=== PATIENT | male | born 1970 | race Caucasian/White ===

== ENCOUNTER 2018-04-26 09:19 | Day surgery (SDC) | payer MEDICAID, SELFPAY ==
[2018-04-26] VITALS (7 sets, daily range): BP systolic 94–161; BP diastolic 49–91; PULSE 59–77; RESP 11–18; TEMP 36.4–36.6; O2SAT 95–98
--- NOTE | 2018-04-26 10:29 | W.PM.HP.N ---
Date of service: 04/26/18 Time of Service: 10:29 Assessment and Plan (1) Hydrocele in adult: Current visit: Yes Status: Chronic For hydrocelectomy History of Present Illness Chief Complaint: Left hydrocele Narrative: This is a 47-year-old gentleman who was previously seen with bilateral hydroceles. He underwent right hydrocelectomy. He had a postoperative seroma and fistula. He required revision surgery. He is ultimately healed from his right side. His left side is symptomatic for him. He comes in now for left hydrocelectomy He has no overlying redness. He is concerned about discoloration of his median raphae. Review of Systems Review of Systems No fevers or chills. Sweats related to anxiety No vision change or dysphasia No diabetes or thyroid No shortness of breath, cough or hemoptysis No chest pain or palpitations No nausea, vomiting, hepatitis, ulcers, jaundice, diarrhea or constipation No seizures, strokes or peripheral neuropathy No bleeding disorders or anemia No gout PFSH Medical History Hydrocele in adult (Chronic) Hypertension (Chronic) Anxiety (Chronic) Social History Smoking/Tobacco Use Status: Current every day Meds Home Medications Medication Instructions Recorded Confirmed Type chlorthalidone 25 mg PO DAILY tab-cap 04/03/17 04/26/18 History clonidine HCl 0.1 mg PO DAILY tab-cap 04/03/17 04/26/18 History pantoprazole [Protonix] 20 mg PO HS tab-cap 04/03/17 04/26/18 History ibuprofen 600 mg PO BID 02/22/18 04/26/18 History Allergies Allergy/AdvReac Type Severity Reaction Status Date / Time meloxicam [From Mobic] Allergy Severe Itching Unverified 04/26/18 09:26 bupropion [From Wellbutrin] AdvReac Mild Other (See Unverified 04/26/18 09:26 Comment) lisinopril AdvReac Mild cough Unverified 04/26/18 09:26 Exam Narrative Exam Narrative: He appears quite nervous. He does not appear septic or toxic. His neck is supple with no mass His lungs are clear Cardiac exam shows a regular rate and rhythm His abdomen is soft with no mass The right hemiscrotum has a healed surgical scar. The left hemiscrotum is slightly enlarged with no fluctuance or erythema. The median raphae is intact and is slightly discolored. He is awake, alert and oriented Results Last Vital Signs Temp 36.6 C 04/26/18 09:28 Pulse 77 04/26/18 09:28 Resp 16 04/26/18 09:28 BP 161/91 H 04/26/18 09:28 Pulse Ox 98 04/26/18 09:28
[2018-04-26] MEDS: Lactated Ringers 1,000 ML 80 ML IV (10:42)
[2018-04-26] MEDS: Bupivacaine 0.25% Pres-Free 30 ML VIAL (11:20)
--- NOTE | 2018-04-26 11:29 | PDOC.DSDIS_ITS ---
Discharge Plan Disposition Patient Disposition: HOME Condition: Stable Discharge Details Attending Provider: Sudheer Perkins Primary Care Provider: Mary Bazzi Home Meds and New Rx's Prescriptions: No Action sulfamethoxazole-trimethoprim [Bactrim DS] 800-160 mg tablet 1 tab PO DAILY Qty: 7 RF: 0 clonidine HCl 0.1 MG tablet 0.1 mg PO DAILY RF: 0 chlorthalidone 25 MG tablet 25 mg PO DAILY RF: 0 pantoprazole [Protonix] 20 MG tablet,delayed release (DR/EC) 20 mg PO HS RF: 0 ibuprofen 600 mg Tablet 600 mg PO BID RF: 0 Discharge Instructions Additional Instructions: OK to shower and remove fluff dressings tomorrow F/U with me 2 to 3 weeks Do not discharge until I hand pt his pain script script for antibiotic printed and signed Stand Alone Forms: DSU Post op Instructions, Gregorio'romina Vasectomy Post-op Activity:: no lifting over 10 pounds until F/U visit Shower/Bathe:: 24 hours Diet:: As Tolerated Discharge Orders Discharge Orders: Discharge Order (Routine); Ordered 04/26/18 Ordered By: Sudheer Perkins Discharge Data Discharge Comment: I had intended to send pt home with script for Oxycodone for postoperative pain. I had called his pharmacy ([facility] in [place]) and found out that pt was already on Suboxone (prescribed by Luke Kaminski, JANINA). I explained that I would not be able to prescribe the Oxycodone given his Suboxone use. I called his provider who agreed to adjust his dose of Suboxone for postoeperative pain control. Mr Olea was not pleased with this arrangement, but for pt safety, we did not send him home with a narcotic prescription). DS: Diagnosis Discharge Diagnosis (1) Hydrocele in adult: Status: Chronic
[2018-04-26] MEDS: oxyCODONE 5 MG TAB 10 MG PO (12:37)
[2018-04-26] MEDS: Midazolam 2 MG/2 ML VIAL IVP (12:43)
[2018-04-26] MEDS: ALPRAZolam 0.5 MG TAB 2 MG PO (12:55)
--- NOTE | 2018-04-26 15:48 | ROE_ITS ---
DATE OF PROCEDURE: April 26, 2018 PREOPERATIVE DIAGNOSIS: Left hydrocele. POSTOPERATIVE DIAGNOSIS: Same. PROCEDURE: Left hydrocelectomy. SURGEON: Sudheer Perkins M.D. ANESTHESIA: General. COMPLICATIONS: None. ESTIMATED BLOOD LOSS: Minimal. HISTORY: This is a 47-year-old gentleman who has had a right hydrocele in the past. He had undergon e right hydrocelectomy. He now has a symptomatic left hydrocele and he requests surgical repair. OPERATIVE REPORT: The patient was brought to the Operating Room on 04/26/18. After successful induct ion of general anesthesia he was placed in the supine position. His low abdomen and genitalia were p repped and draped. A left transscrotal incision was made along the rugae on the left side. The dartos muscle was divide d and we came down onto the tunica vaginalis. We delivered the testis through the incision and dissected the tunica away from its fibrous tissues. The tunica was then opened and a small amount of fluid was drained. The testis itself appeared norm al. A cord block was performed using 0.25% Marcaine without epinephrine. The tunica was everted behind t he testis and reapproximated at the edges using simple interrupted #3-0 Chromic sutures. The testis was delivered back within the left hemiscrotum. The dartos muscle was reapproximated with simple interrupted #3-0 Chromic. The skin was closed with simple interrupted #4-0 Vicryl sutures. The patient tolerated the procedure well. There were no complications. Dermabond was applied to the wound, followed by fluff dressings and a scrotal support.
== END 2018-04-26 13:22 | disposition home or self-care (01) ==
PROVIDERS: PCP Nurse Practitioner Family; Visit Provider Urology
PROC: (CPT 55040; principal; 2018-04-26 10:45)
DX: N43.2 Other hydrocele (principal)
CPT/HCPCS: 55040; NC; J0690; J1100; J1885; J2250; J2405; J3010

== ENCOUNTER 2018-04-29 22:06 | Emergency (ER) | payer OTHER, SELFPAY ==
[2018-04-29 23:12] VITALS: BP 150/85; PULSE 66; RESP 16; TEMP 37.2; O2SAT 99
--- NOTE | 2018-04-29 23:27 | ED.GENADUL_ITS ---
Discharge Plan Disposition Patient Disposition: HOME Condition: Stable Discharge Details Chief Complaint: Urinary Clinical Impression: Scrotal hematoma, History of hydrocelectomy Primary Care Provider: Mary Bazzi ED Provider: Bambi Pendleton Home Meds and New Rx's Prescriptions: No Action sulfamethoxazole-trimethoprim [Bactrim DS] 800-160 mg tablet 1 tab PO DAILY Qty: 7 RF: 0 clonidine HCl 0.1 MG tablet 0.1 mg PO DAILY RF: 0 chlorthalidone 25 MG tablet 25 mg PO DAILY RF: 0 pantoprazole [Protonix] 20 MG tablet,delayed release (DR/EC) 20 mg PO HS RF: 0 ibuprofen 600 mg Tablet 600 mg PO BID RF: 0 acetaminophen 325 mg Tablet 650 mg PO Q6H PRNRF: 0 Suboxone 2-0.5 mg Film 7 film BUCCAL DAILY RF: 0 Discharge Instructions Instructions: Hydrocele (ED), Hematoma (ED) Additional Instructions: Keep holding pressure to the left scrotum to help with re-absorption of blood which will hopefully decrease her swelling. If possible, it would be best return to an emergency department that has urology available if you have any worsening or new concerning symptoms so that you can be evaluated by urology. Discharge Data Discharge Date/Time-TO BE ENTERED AT DEPARTURE: 04/30/18 17:50 Discharge Physician: Bambi Pendleton Medical Decision Making <Chung Sebastian MD - Last Filed: 04/30/18 07:37> I actually saw this patient last spring when he had postop hematoma related to excision of the right hydrocele. Appears to have recurrent hematoma after excision of a left hydrocele. He is in a fair amount of discomfort. He is not able to have narcotics because he is on Suboxone. He reports having a dissolv able tablet under his tongue with ketamine in it postop surgery which he states worked very well. The area looks ecchymotic and there is probably a large hematoma. There is no drainage. There is no warmth or erythema and I do not think there is evidence of infection. Attempted to reach Dr. Perkins but he did not answer his phone. He does appear to be scheduled for patient's tomorrow here in the hospital. I did speak to anesthesia, RAFAEL An, and confirmed that medication patient is talking about is MKO melts. Patient will be given 1 of these to help with his pain. We will place an IV and make n.p.o. We will check a CBC. We will hold here in the ED until I can speak to Dr. Perkins. Quite possible that patient will need to go for drainage of hematoma. 7:30 - Patient asking for his Suboxone. However, the nurse at [facility] told me the patient is on dry cell. He is only scheduled for Motrin and Tylenol if he was at the skilled nursing. Since he is in DOC custody I will abide by their medical orders. I have made patient aware of this. He is given Toradol this morning. His CBC last evening was fine. He has no elevated white count. He has had no fever here. Messages have been left for Dr. Perkins this morning. Specialty clinics open at 8, hopefully he will call back to us prior to that. Patient will be signed over to oncoming physician Dr. Pendleton. Medical Records Medical records reviewed: Yes I reviewed the patient's medical records. Lab Data Lab results reviewed: Yes I reviewed the patient's lab results. <Bambi Pendleton, DO - Last Filed: 05/01/18 08:18> Please see Dr. Sebastian's note for initial presentation, exam and plan. 47yo M who is 4 days s/p L hydrocelectomy who presents with left scrotal hematoma x 3 days. Attempts to reach Dr. Perkins unsuccessful overnight. Determined this morning that Dr. Perkins and Mya Martinez are away today and not available. Plan per Dr. Sebastian was to discuss with [facility] versus [facility] urology for recommendations, may need urgent hematoma drainage. Patient was apparently comfortable overnight. He had been given Toradol, and MKO and slept all night. This morning patient complaining of some pain and given another MKO by Dr. Sebastian prior to my endorsement. Upon my evaluation, patient states his pain is returning. Patient has had no fever, normal white blood cell count and no evidence of infection on exam. Patient is questioning why he has not received any pain medications. Patient states he has been on Suboxone for the past 4-5 months for previous opioid addiction. His last dose of Suboxone was 3 days ago. Patient is currently in police custody for the past 3 days so has not received his Suboxone for 3 days. chief talent officer states that patient had been on dry cell precautions due to concern for holding tobacco or narcotics on his person/or in rectum but correctional therapy teacher states this has been lifted and pt can receive any narcotics if needed. Patient states he had been receiving 4 mg of Dilaudid, and 10 mg of OxyContin for his pain in the past. Will give a dose of 4 mg morphine IV. 0915 -- d/w [facility] - they will page urology who are in surgery. 1230 -- no word yet from [facility]. Discussed with [facility] urology - recommends observation for 24 hours to determine if expanding hematoma. If remains stable, recommends compression with gauze, jockstrap recommendations for urgent evacuation include an expanding hematoma or signs of infection. Otherwise recommends symptomatic control. 1530 -- d/w [facility] urology - agrees with plan for supportive care - if not expanding, okay to discharge home with follow-up next week. Patient complained to nurse that he had some yellow red discharge when urinating. Will obtain a UA. 1600 -- Evaluated patient in room again and he feels like the hematoma is expanding. Upon my evaluation, there appears to be a small area approximately 2 x 2 cm which appears to be a localized area of swelling and does not appear consistent with an expanding hematoma. His scrotum does not appear indurated. 1615 --discussed with [facility] urology - they were notified of the small area of increased swelling. She states it would be unlikely that patient have a hematoma 4 days post surgery. Recommend supportive care with pressure dressing. Recommend patient return to an ER with urology if needed. Patient is requesting his dose of Suboxone. We will give his dose here and discharge back to correctional facility. His urinalysis is negative for infection or blood. Patient was instructed to keep holding pressure to the area and that if he has any acute signs of worsening to return to facility with urology if possible, otherwise he can return here. Medical Records Medical records reviewed: Yes I reviewed the patient's medical records. Lab Data Lab results reviewed: Yes I reviewed the patient's lab results. Laboratory Tests Range/Units 04/30/18 04/30/18 00:10 16:03 WBC (4.4-10.8) k/cumm 5.56 RBC (4.50-6.00) m/cumm 3.99 L Hgb (13.5-17.5) g/dL 13.8 Hct (40.0-50.0) % 39.4 L MCV (80-95) fL 98.7 H MCH (27.0-33.0) pg 34.6 H MCHC (32.0-36.0) g/dL 35.0 RDW (11.8-14.1) % 12.0 Plt Count (130-400) x1000/uL 135 MPV (8.0-11.0) fL 10.1 Immature Gran % 0.5 Neutrophils % 62.3 Lymphocytes % 27.7 Monocytes % 7.6 Eosinophils % 1.4 Basophils % 0.5 Absolute Neutrophils (1.2-6.7) k/cumm 3.46 Absolute Lymphocytes (1.2-3.4) k/cumm 1.54 Absolute Monocytes (0.11-0.7) k/cumm 0.42 Absolute Eosinophils (0.0-0.7) k/cumm 0.08 Absolute Basophils (0.0-0.2) k/cumm 0.03 Urine Color (Yellow) Yellow Urine Clarity Clear Urine pH (5-8) 8.0 Ur Specific [place] (1.005-1.025) 1.020 Urine Protein (Negative) mg/dL Negative Urine Ketones (Negative) mg/dL Negative Urine Blood (Negative) Negative Urine Nitrite (Negative) Negative Urine Bilirubin (Negative) Negative Urine Urobilinogen (Up TO 0.2) EU/dL 1.0 H Ur Leukocyte Esterase (Negative) Negative Urine Glucose (Negative) mg/dL Negative HPI <Chung Sebastian MD - Last Filed: 04/30/18 07:37> General Mode of arrival: ambulatory . Date/Time Provider Initiated Documentation: 04/29/18 23:23 . Limitations to Documentation: no limitations . Information obtained by: patient and old records reviewed . HPI Narrative: Patient is brought in by DOC for evaluation of left scrotal ecchymosis and swelling. On the patient underwent excision of a left hydrocele. He was discharged and supposed to be taking Bactrim and an increased dose of his Suboxone for pain control. He ended up going back to skilled nursing where he has not been getting any medications other than Motrin and Tylenol. In the last 24 hours his scrotum has become ecchymotic, swollen and painful. He has had no fever. He is able to urinate. He had a right hydrocele excision this spring and had a similar event. Ultimately underwent hematoma drainage. He is sent in by the nurse from skilled nursing because of increasing pain and swelling. Related Data Home Medications Medication Instructions Recorded Confirmed chlorthalidone 25 mg PO DAILY tab-cap 04/03/17 04/29/18 clonidine HCl 0.1 mg PO DAILY tab-cap 04/03/17 04/29/18 pantoprazole [Protonix] 20 mg PO HS tab-cap 04/03/17 04/29/18 ibuprofen 600 mg PO BID 02/22/18 04/29/18 sulfamethoxazole 800 1 tab PO DAILY #7 tab 04/26/18 04/29/18 mg-trimethoprim 160 mg tablet acetaminophen 650 mg PO Q6H PRN 04/29/18 04/29/18 buprenorphine-naloxone [Suboxone] 7 film BUCCAL DAILY 04/29/18 04/29/18 Previous Rx's Medication Instructions Recorded sulfamethoxazole 800 1 tab PO DAILY #7 tab 04/26/18 mg-trimethoprim 160 mg tablet Allergies Allergy/AdvReac Type Severity Reaction Status Date / Time meloxicam [From Mobic] Allergy Severe Itching Unverified 04/29/18 23:16 bupropion [From Wellbutrin] AdvReac Mild Other (See Unverified 04/29/18 23:16 Comment) lisinopril AdvReac Mild cough Unverified 04/29/18 23:16 General Stated Complaint: Urinary AMBER: 3 Review of Systems <Chung Sebastian MD - Last Filed: 04/30/18 07:37> Constitutional Denies fever(s) and Denies weakness Cardiovascular Denies chest pain, Denies syncope, Denies palpitations and Denies dyspnea Respiratory Denies chest congestion, Denies cough and Denies dyspnea Gastrointestinal Denies abdominal pain, Denies diarrhea, Denies nausea and Denies vomiting Genitourinary Denies hematuria, Denies dysuria, Denies flank pain and Reports scrotal swelling Musculoskeletal Denies numbness Integumentary/Breasts Denies erythema Neurologic Denies abnormal speech, Denies confusion, Denies syncope, Denies numbness and Denies weakness Psychiatric Denies confusion Endocrine Denies palpitations PFS <Chung Sebastian MD - Last Filed: 04/30/18 07:37> Medical History Hydrocele in adult (Chronic) Hypertension (Chronic) Anxiety (Chronic) Narcotic addiction (Chronic) Surgical History History of genitourinary surgery (Acute) Social History Smoking/Tobacco Use Status: Current every day Exam <Chung Sebastian MD - Last Filed: 04/30/18 07:37> Const General: cooperative, comfortable and no acute distress Orientation: alert and oriented x3 HENMT Head: normocephalic and atraumatic Neck Neck: trachea midline and supple GI Inspection: normal to inspection Palpation: soft, not firm, no guarding and nontender Penis: normal penis, no ecchymosis and no swelling Scrotum: ecchymosis, scrotal swelling and other (Left scrotal fullness, tenderness. Incision intact. No drainage.) Skin General skin exam: ecchymosis and no erythema Neuro General: alert, oriented x3, no focal motor deficits and CN's II-XI intact bilaterally Extrem General: no clubbing, cyanosis or edema Course <Chung Sebastian MD - Last Filed: 04/30/18 07:37> Vital Signs Temperature 99.0 F 04/29/18 23:12 Pulse 66 04/29/18 23:12 Respiratory Rate 16 04/29/18 23:12 Blood Pressure 150/85 H 04/29/18 23:12 Pulse Oximetry 99 04/29/18 23:12 Temperature 99.0 F 04/29/18 23:12 Temperature Source Skin 04/29/18 23:12 Pulse 66 04/29/18 23:12 Respiratory Rate 16 04/29/18 23:12 Respiratory Effort Non-Labored 04/29/18 23:14 Blood Pressure 150/85 H 04/29/18 23:12 Blood Pressure Position Sitting 04/29/18 23:12 Pulse Oximetry 99 04/29/18 23:12 Oxygen Delivery Method Room Air 04/29/18 23:12 Oxygen Flow Rate 0 04/29/18 23:12 Pain Level 9 04/29/18 23:12 Sign Out <Chung Sebastian MD - Last Filed: 04/30/18 07:37> Sign Out Data: Sign Out Comment: Signed out to Dr. Pendleton, attempting to find urologist for referral/consult Last updated by Chung Sebastian MD at 04/30/18 08:14
[2018-04-30] VITALS (63 sets, daily range): BP systolic 132–140; BP diastolic 67–68; PULSE 52–78; RESP 9–23; TEMP 37–37.1; O2SAT 89–98
[2018-04-30] MEDS: Lactated Ringers 1,000 ML 150 ML IV ×2 (00:10→06:00)
[2018-04-30] MEDS: Midazolam/Ketamine/Ondansetron (3/25/2MG) 1 TAB 1 EACH SL ×2 (00:24→08:16)
[2018-04-30] MEDS: Normal Saline Flush 10 ML SYR IVP (00:25)
[2018-04-30 00:40] LABS: Abs Immature Grans 0.03 k/cumm (0.0-0.09); Absolute Basophil Count 0.03 k/cumm (0.0-0.2); Absolute Eosinophil Count 0.08 k/cumm (0.0-0.7); Absolute Lymphocyte Count 1.54 k/cumm (1.2-3.4); Absolute Monocyte Count 0.42 k/cumm (0.11-0.7); Absolute Neutrophil Count 3.46 k/cumm (1.2-6.7); Basophils % 0.5; Eosinophils % 1.4; HCT 39.4 % (40.0-50.0); HGB 13.8 g/dL (13.5-17.5); Immature Grans % 0.5; Lymphocytes % 27.7; Mean Corpuscular Hemoglobin 34.6 pg (27.0-33.0); Mean Corpuscular Volume 98.7 fL (80-95); Mean Platelet Volume 10.1 fL (8.0-11.0); Monocytes % 7.6; Neutrophils % 62.3; Platelet Count 135 x1000/uL (130-400); RBC 3.99 m/cumm (4.50-6.00); White Blood Cell Count 5.56 k/cumm (4.4-10.8)
--- NOTE | 2018-04-30 07:07 | NUR.NOTE ---
Nursing Note: Assumed care of patient, VSS on the monitor. Has officer at the bedside. Will monitor.
--- NOTE | 2018-04-30 07:28 | NUR.NOTE ---
Nursing Note: MD Sebastian at the bedside, is clear to patient again that he will not receive suboxone while he is here in the ED. confirmed again with facility that pt. has only been receiving tylenol and ibuprofen.
[2018-04-30] MEDS: Ketorolac 15 MG/ML VIAL IVP (07:34)
--- NOTE | 2018-04-30 08:41 | NUR.NOTE ---
Nursing Note: MD Pendleton at the bedside.
[2018-04-30] MEDS: MORPHine 10 MG/ML VIAL 4 MG IVP ×2 (08:51→13:17)
--- NOTE | 2018-04-30 09:06 | NUR.NOTE ---
Nursing Note: Pt. sleeping, RR WNL.
--- NOTE | 2018-04-30 10:50 | NUR.NOTE ---
Nursing Note: Pt. sleeping, RR WNL.
--- NOTE | 2018-04-30 10:51 | NUR.NOTE ---
Nursing Note: Pt. was placed on 2L NC for 02 sat dropping briefly into high 80s while sleeping.
--- NOTE | 2018-04-30 11:29 | NUR.NOTE ---
Nursing Note:still sleeping, RR WNL.
--- NOTE | 2018-04-30 12:41 | NUR.NOTE ---
assumed care of patient, patient requesting pain medication Nursing Note:
--- NOTE | 2018-04-30 13:13 | NUR.NOTE ---
aware of patient requesting pain medication 1300. Nursing Note:
--- NOTE | 2018-04-30 13:25 | NUR.NOTE ---
patient medicated per MD order Nursing Note:
--- NOTE | 2018-04-30 14:33 | NUR.NOTE ---
mORPHINE DID NOT HELP PAIN PER PATIENT, md AWARE, CONTINUES TO AWAIT UROILOGY CONSULT Nursing Note:
[2018-04-30] MEDS: HYDROmorphone 2 MG/ML VIAL 0.5 MG IV (14:46)
--- NOTE | 2018-04-30 14:48 | NUR.NOTE ---
patient medicated per MD order with 0.5 mg dilaudid IV, consult continues to pend Nursing Note:
--- NOTE | 2018-04-30 15:36 | NUR.NOTE ---
patient reported yellow/red discharge during void, MD aware Nursing Note:
--- NOTE | 2018-04-30 16:07 | NUR.NOTE ---
into speak with patient, patient reports groin swelling and reports pain is not under control Nursing Note:
--- NOTE | 2018-04-30 16:09 | NUR.NOTE ---
jared during [id number] patient has voided 800mL Nursing Note:
[2018-04-30 16:11] LABS: Bilirubin Negative (Negative); Blood Negative (Negative); Clarity Clear; Glucose Negative (Negative); Ketones Negative (Negative); Leukocyte Esterase Negative (Negative); Nitrite Negative (Negative)
[2018-04-30] MEDS: Buprenorphine/Naloxone 12 mg/3 mg FILM 1 EACH SL (16:48)
--- NOTE | 2018-04-30 16:59 | NUR.NOTE ---
PATIENT MEDICATED PER MD ORDER, FOOD TRAY ORDERED Nursing Note:
--- NOTE | 2018-04-30 17:49 | NUR.NOTE ---
patient received jock strap and kerlex per MD order, report given to Holli escamilla,, patient discharged in care of guard. Nursing Note:
== END 2018-04-30 17:50 | disposition home or self-care (01) ==
PROVIDERS: Emergency Medicine; Emergency Provider Physician Assistant; PCP Nurse Practitioner Family
DX: L76.32 Postprocedural hematoma of skin and subcutaneous tissue following other procedure (principal); Z79.891 Long term (current) use of opiate analgesic; I10 Essential (primary) hypertension
CPT/HCPCS: 96361; 96374; 96375; 96376; 99284; 81003; 85025; J1885; J2270

== ENCOUNTER 2018-05-13 11:14 | Observation (INO) | payer OTHER, MEDICAID, SELFPAY ==
[2018-05-13] VITALS (11 sets, daily range): BP systolic 130–183; BP diastolic 66–102; PULSE 55–75; RESP 9–17; TEMP 36.4–36.7; O2SAT 93–98
--- NOTE | 2018-05-13 11:18 | HPE_ITS ---
Assessment and Plan (1) scrotal fistula: Current visit: No Status: Acute We will revise his scrotal incision and treat him with IV antibiotics for 24-48 hours while tissue cultures are obtained. History of Present Illness Chief Complaint: Scrotal Fistula Narrative: This is a 47-year-old gentleman who previously was seen with a right hydrocele. He underwent hydrocelectomy and ultimately developed increased drainage and a fistula. He required a revision of his scrotal wound. He recently had a left-sided hydrocele addressed the procedure was done between 2 and 3 weeks ago. He has had persistent drainage from the center of his wound consistent with a postop fistula. He will undergo revision of that portion of the wound and stay in the hospital for IV antibiotics while the wound culture is obtained. He is not having any fever or chills. He does have pain and swelling. Review of Systems Review of Systems He has no fever or chills He has no vision change. He tells me that oral Keflex had caused some scalp itching. He has no cough or sputum production He has no chest pain He has no nausea or vomiting He has anxiety He has no history of gout. He does have arthralgia [facility] Social History Smoking/Tobacco Use Status: Current every day Meds Home Medications Medication Instructions Recorded Confirmed Type chlorthalidone 25 mg PO DAILY tab-cap 04/03/17 04/29/18 History clonidine HCl 0.1 mg PO DAILY tab-cap 04/03/17 04/29/18 History pantoprazole [Protonix] 20 mg PO HS tab-cap 04/03/17 04/29/18 History ibuprofen 600 mg PO BID 02/22/18 04/29/18 History sulfamethoxazole 800 1 tab PO DAILY #7 tab 04/26/18 04/29/18 Rx mg-trimethoprim 160 mg tablet acetaminophen 650 mg PO Q6H PRN 04/29/18 04/29/18 History buprenorphine-naloxone [Suboxone] 7 film BUCCAL DAILY 04/29/18 04/29/18 History Allergies Allergy/AdvReac Type Severity Reaction Status Date / Time meloxicam [From Mobic] Allergy Severe Itching Unverified 04/29/18 23:16 bupropion [From Wellbutrin] AdvReac Mild Other (See Unverified 04/29/18 23:16 Comment) lisinopril AdvReac Mild cough Unverified 04/29/18 23:16 Exam Narrative Exam Narrative: He is in no acute distress. He does not appear septic or toxic. His chest wall motion is normal. His lungs are clear. Cardiac exam shows a regular rate and rhythm. His abdomen is obese but soft with no masses. The left hemiscrotum is enlarged and firm but not fluctuant. There is serous drainage from the center aspect of his incision. He is awake, alert and oriented
--- NOTE | 2018-05-13 11:43 | HPE_ITS ---
Date of service: 05/13/18 Time of Service: 11:36 Assessment and Plan (1) scrotal fistula: Current visit: No Status: Acute We will revise the affected portion of his wound and send that to you for culture and sensitivity. We will keep him on broad-spectrum antibiotics until the culture is available I would expect a similar outcome from his last procedure when his culture grew E. coli History of Present Illness Chief Complaint: Scrotal fistula Narrative: This is a 47-year-old gentleman who previously had a right hydrocelectomy. Postoperatively, he developed persistent drainage due to a fistula. He underwent a revision of this area. The culture grew E. coli. He improved with the revision and the broad-spectrum antibiotics. He subsequently had a left-sided hydrocelectomy. The procedure was done 2-3 weeks ago. He has had persistent serous drainage for the past week or so. He is not having any fevers or chills. He is admitted for revision of his wound and antibiotic therapy until his cultures are available Review of Systems Review of Systems He has no fever chills He has no vision change. He tells me that his oral Keflex caused some scalp itching He has no cough or sputum production He has no chest pain He has no nausea or vomiting He has no gout, but he does have arthralgia He has no history of seizures or stroke [facility] Medical History Hydrocele in adult (Chronic) Hypertension (Chronic) Anxiety (Chronic) Narcotic addiction (Chronic) Surgical History History of genitourinary surgery (Acute) Social History Smoking/Tobacco Use Status: Current every day Meds Home Medications Medication Instructions Recorded Confirmed Type chlorthalidone 25 mg PO DAILY tab-cap 04/03/17 04/29/18 History clonidine HCl 0.1 mg PO DAILY tab-cap 04/03/17 04/29/18 History pantoprazole [Protonix] 20 mg PO HS tab-cap 04/03/17 04/29/18 History ibuprofen 600 mg PO BID 02/22/18 04/29/18 History acetaminophen 650 mg PO Q6H PRN 04/29/18 04/29/18 History buprenorphine-naloxone [Suboxone] 7 film BUCCAL DAILY 04/29/18 04/29/18 History Allergies Allergy/AdvReac Type Severity Reaction Status Date / Time meloxicam [From Mobic] Allergy Severe Itching Unverified 05/13/18 11:38 bupropion [From Wellbutrin] AdvReac Mild Other (See Unverified 05/13/18 11:38 Comment) lisinopril AdvReac Mild cough Unverified 05/13/18 11:38 Exam Narrative Exam Narrative: He is in no current distress. He does not appear septic or toxic. His vital signs are documented elsewhere His chest wall motion is normal. He is not short of breath at rest. His lungs are clear Cardiac exam regular rate and rhythm His abdomen is obese but soft with no masses His scrotum is diffusely enlarged and firm but there is no fluctuance or evidence of abscess. The center portion of his scrotal wound is draining serous fluid. The more lateral aspect of his incision is healing well. He is awake, alert and oriented
[2018-05-13] MEDS: Midazolam/Ketamine/Ondansetron (3/25/2MG) 1 TAB 1 EACH SL (12:00)
[2018-05-13] MEDS: Lactated Ringers 1,000 ML 80 ML IV (12:16)
[2018-05-13] MEDS: GENTAMICIN 160 MG in Normal Saline 100 ML 208 MG IVPB (12:27)
[2018-05-13] MEDS: Bupivacaine 0.5% Pres-Free 30 ML VIAL (12:46)
[2018-05-13] MEDS: Hydrogen Peroxide 3% 480 ML BTL (12:46)
[2018-05-13] MEDS: HYDROmorphone 2 MG/ML VIAL IVP ×9 (13:56→23:36)
[2018-05-13] MEDS: Normal Saline Flush 10 ML SYR IV ×2 (13:56→16:55)
[2018-05-13] MEDS: oxyCODONE 5 MG TAB 10 MG PO ×3 (14:21→22:04)
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
[2018-05-13] MEDS: ALPRAZolam 0.5 MG TAB PO ×2 (16:57→22:04)
[2018-05-13] MEDS: Ketorolac 15 MG/ML VIAL IVP ×2 (18:07→23:36)
--- NOTE | 2018-05-13 18:50 | NUR.NOTE ---
Nursing Note: Report received from TRICIA Godinez. Patient is in stable condition, currently resting in bed with no complaints. The bed is in the low and locked position, side rails up x2, call light within reach.
[2018-05-13] MEDS: Normal Saline Flush 10 ML SYR ×2 (19:48→22:50)
--- NOTE | 2018-05-13 21:50 | NUR.NOTE ---
Nursing Note: Dressing to scrotum changed due to saturation. Patient tolerated well.
[2018-05-13] MEDS: Pantoprazole 20 MG TABCR PO (22:04)
[2018-05-14] MEDS: HYDROmorphone 2 MG/ML VIAL IVP ×15 (00:35→21:59)
[2018-05-14] MEDS: Normal Saline Flush 10 ML SYR (00:35)
[2018-05-14] MEDS: oxyCODONE 5 MG TAB 10 MG PO ×5 (02:53→19:53)
[2018-05-14] MEDS: Lactated Ringers 1,000 ML 100 ML IV ×2 (02:56→13:07)
[2018-05-14] MEDS: ALPRAZolam 0.5 MG TAB PO ×3 (03:59→17:22)
[2018-05-14] MEDS: Ketorolac 15 MG/ML VIAL IVP ×2 (05:31→12:03)
[2018-05-14] MEDS: Normal Saline Flush 10 ML SYR IVP ×5 (06:55→21:59)
[2018-05-14 07:25] VITALS: BP 145/75; PULSE 77; RESP 18; TEMP 37.1; O2SAT 94
[2018-05-14] MEDS: Docusate Sodium 100 MG CAP PO ×2 (11:04→19:53)
[2018-05-14] MEDS: Bisacodyl 10 MG SUPP PR (11:04)
--- NOTE | 2018-05-14 11:50 | NUR.NOTE ---
Nursing Note: 1145: update on pt's condition given to CANDACE Toledo at [facility] all questions answered.
--- NOTE | 2018-05-14 12:36 | W.PM.PROGNOT ---
Date of Service Date of service: 05/14/18 Time of Service: 12:36 Assessment and Plan (1) scrotal fistula: Current visit: No Status: Acute His wound looks as I would expect at this point in time. We will keep him on broad-spectrum antibiotics until his culture is available. At that time, we should be able to discharge him on oral antibiotics. As expected, on patients on chronic Subutex, he is requiring much higher than expected short-term narcotics. We will switch to a larger dose of the lot of with a bigger duration between doses. We have asked the pharmacy for other ideas regarding pain control. Gabapentin was suggested but the patient claims that he is allergic to it. The patient is asking for higher doses of benzodiazepines, but we will not be giving a higher dose due to potential respiratory depression from combinations of his medications. Subjective Interval history since last seen: The patient has complained of postop pain which has been difficult to control (as expected). He has been on his chronic Subutex along with IV Toradol, as needed Dilaudid which she has been requesting every hour. He has not had any fevers or chills. He has had some bleeding from his incision especially with activity. Exam Narrative Exam Narrative: He does not seem to be in extreme pain. His vital signs are documented elsewhere. His incision site is clean. The left hemiscrotum is enlarged but there is no fluctuance or obvious fluid collections. His culture taken in the operating room is still pending. Objective Objective Clinical Data: Vital Signs Temperature 37.1 C 05/14/18 07:25 Temperature Source Tympanic 05/14/18 07:25 Pulse 77 05/14/18 07:25 Pulse Rhythm Regular 05/14/18 10:30 Respiratory Rate 18 05/14/18 07:25 Respiratory Effort Non-Labored 05/14/18 10:30 Respiratory Depth Normal 05/14/18 10:30 Respiratory Pattern Normal 05/14/18 10:30 Blood Pressure 145/75 H 05/14/18 07:25 Pulse Oximetry 94 L 05/14/18 07:25 Respiratory End-tidal CO2 44 05/13/18 14:24 Oxygen Delivery Method Room Air 05/14/18 07:25 Oxygen Flow Rate 0 05/14/18 07:25 Pain Level 7 05/14/18 12:03 Intake & Output 05/13/18 05/14/18 05/14/18 23:59 11:59 23:59 Intake Total 1154 / 1154 480 / 480 Output Total 700 / 700 Balance 1144 / 1144 -220 / -220 Weight 110.3 kg Intake: IV 1154 / 1154 Oral 480 / 480 Output: Urine 700 / 700 Estimated Blood Loss Other: Urine Color Yellow Urine Appearance Clear Clear Urine Odor Normal Emesis Description None Voiding Methods Urinal
[2018-05-14] MEDS: Acetaminophen 500 MG TAB 1000 MG PO ×2 (13:04→19:53)
--- NOTE | 2018-05-14 13:27 | PDOC.CMIN ---
- If Service Date Differs Date of service: 05/14/18 Time of Service: 13:28 Care Management Initial Assess REASON FOR HOSPITALIZATION:: Scrotal Fistula PAST MEDICAL HISTORY/PAST SURGICAL HISTORY:: Hydrocele, hypertension, anxiety, scrotal fistula PREVIOUS FUNCTIONAL STATUS/SOCIAL/FAMILY SUPPORTS:: Nahum currently resides at correctional facility in [place], [place] CURRENT FUNCTIONAL STATUS:: Nahum is in bed he has a guard at the bedside. He is receiving IV antibiotics and treatements for pain control. ADVANCE DIRECTIVES:: None on file at [facility] Has patient been provided with information about the portal?: Yes Did the patient sign up for the portal?: No CODE STATUS:: Full Code INSURANCE COVERAGE / FINANCIAL ISSUES:: Medicaid CURRENT HOME/COMMUNITY SERVICES/EQUIPMENT:: [facility] PRIMARY CARE PHYSICIAN:: Correctional facility POTENTIAL DISCHARGE NEEDS:: Follow up with Dr. Perkins and Correctional facility provider PATIENT/FAMILY EDUCATION NEEDS:: Discharge education limitations follow-up plan of care and communication to correctional facility. ANTICIPATED BARRIERS TO DISCHARGE:: None identified TRANSPORTATION:: Via guard at time of transfer return to correctional facility. PLAN:: Nahum continues to be monitored and on IV antibiotics pending cultures. No change today anticipate that he will be discharged over the weekend and he remains in observation status.
--- NOTE | 2018-05-14 13:54 | INITIAL_ITS ---
- If Service Date Differs Date of service: 05/14/18 Time of Service: 13:28 Care Management Initial Assess REASON FOR HOSPITALIZATION:: Scrotal Fistula PAST MEDICAL HISTORY/PAST SURGICAL HISTORY:: Hydrocele, hypertension, anxiety, scrotal fistula PREVIOUS FUNCTIONAL STATUS/SOCIAL/FAMILY SUPPORTS:: Nahum currently resides at correctional facility in [place], [place] CURRENT FUNCTIONAL STATUS:: Nahum is in bed he has a guard at the bedside. He is receiving IV antibiotics and treatements for pain control. ADVANCE DIRECTIVES:: None on file at [facility] Has patient been provided with information about the portal?: Yes Did the patient sign up for the portal?: No CODE STATUS:: Full Code INSURANCE COVERAGE / FINANCIAL ISSUES:: Medicaid CURRENT HOME/COMMUNITY SERVICES/EQUIPMENT:: [facility] PRIMARY CARE PHYSICIAN:: Correctional facility POTENTIAL DISCHARGE NEEDS:: Follow up with Dr. Perkins and Correctional facility provider PATIENT/FAMILY EDUCATION NEEDS:: Discharge education limitations follow-up plan of care and communication to correctional facility. ANTICIPATED BARRIERS TO DISCHARGE:: None identified TRANSPORTATION:: Via guard at time of transfer return to correctional facility. PLAN:: Nahum continues to be monitored and on IV antibiotics pending cultures. No change today anticipate that he will be discharged over the weekend and he remains in observation status.
[2018-05-14 16:53] VITALS: BP 123/77; PULSE 87; RESP 18; TEMP 37.9; O2SAT 93
[2018-05-14] MEDS: Normal Saline 500 ML IV (16:58)
--- NOTE | 2018-05-14 19:25 | NUR.NOTE ---
Nursing Note: Report received from off-going nurse, patient is currently resting in bed with guard at bedside, patient is very upset regarding pain control throughout the day. I attempted to discuss the patients concern with him and also establish reasonable expectations regarding pain management.
[2018-05-14] MEDS: Gabapentin 600 MG TAB PO (19:53)
--- NOTE | 2018-05-14 19:55 | NUR.NOTE ---
Nursing Note: Patient has been very belligerent this shift. Insisting that all of his PRN medications for pain and anxiety are scheduled and that this nurse must arrive with all medications scheduled and PRN on the dot of the hour when they are due. This RN attempted to explain the difference between scheduled and PRN medication with no success. The patient refused to listen and kept insisting on the above. Patient also insisting that his PRN Dilaudid be pushed hard and fast as that is how it is administered and will not work otherwise. Patient rang at approximately 1840 to state that he was bleeding and that he needed his RN. This RN assessed the patient's dressing and scrotal incision. This RN found that the ABD pad that had been applied on top of the fluffed guaze was gone. The fluffed guaze had been moved from under his scrotum and placed on his lower abdomen just under his mesh panties. The guaze had no drainage on them. There was a moderate amount of serosang drainage on the pad on the bed. The incision was intact. The patient would barely let this RN check his incision, stating he was in horrific pain and that this RN had to call Dr. Perkins. The patient went on to explain that he needed more pain medications because since he was bleeding his pain had shot up. Clinical Coordinator Emmy Bailey RN notified.
[2018-05-14] MEDS: Pantoprazole 20 MG TABCR PO (21:58)
--- NOTE | 2018-05-14 22:06 | NUR.NOTE ---
Nursing Note: Patient requested I write on his board the next time each of his prn medications will be available to him, I have done as the patient asked. I also reiterated that the medications are as needed and not due at that time. Patient verbalized understanding and agreed to call and ask for prn medications as he needs them.
--- NOTE | 2018-05-15 00:50 | NUR.NOTE ---
Nursing Note: Patient currently sleeping in bed, no signs of pain or discomfort noted, respirations are even and unlabored. Patient not disturbed at this time, will continue to monitor.
[2018-05-15] MEDS: ALPRAZolam 0.5 MG TAB PO ×3 (01:28→13:45)
[2018-05-15] MEDS: oxyCODONE 5 MG TAB 10 MG PO ×3 (01:28→10:04)
[2018-05-15] MEDS: HYDROmorphone 2 MG/ML VIAL IVP ×6 (01:28→12:34)
[2018-05-15] MEDS: Lactated Ringers 1,000 ML 100 ML IV (01:30)
[2018-05-15] MEDS: Gabapentin 600 MG TAB PO ×2 (03:33→11:10)
[2018-05-15] MEDS: Acetaminophen 500 MG TAB 1000 MG PO ×2 (03:33→11:10)
[2018-05-15] MEDS: Normal Saline Flush 10 ML SYR IVP ×4 (03:33→12:34)
[2018-05-15 07:20] VITALS: BP 153/81; PULSE 100; RESP 19; TEMP 37.8; O2SAT 92
--- NOTE | 2018-05-15 11:16 | W.PM.DS.N ---
Date of service: 05/15/18 Time of Service: 11:16 DS: Diagnosis Discharge Diagnosis (1) scrotal fistula: Status: Acute Discharge Plan Disposition [facility] Condition: Stable Discharge Details Reason For Visit: SCROTAL FISTULA Admit Date/Time: 05/13/18 14:20 Admit Provider: Sudheer Perkins Attending Provider: Sudheer Perkins [facility] Hospital Course: The patient was taken to the operating room for a wound revision. We sent the actual incision tissue to the lab for tissue culture. We did not find any discrete purulent material, but we did flush out his wound with combinations of antiseptics and antibiotics. We closed his wound primarily We kept him on broad-spectrum antibiotics while awaiting the culture and sensitivity. Ultimately, the culture and sensitivity showed staph aureus sensitive to Bactrim. He is being discharged back to the correctional facility on appropriate oral antibiotics As expected, his pain control was an issue. He continued to request additional narcotic in spite of his Subutex treatment. We tried to explain the chemical reason why narcotics would not be especially helpful in this situation, but he continued to demand oral and IV narcotics. We attempted to use anti-inflammatory medications, Tylenol and gabapentin, but he was quite reluctant to use any of these medications. Home Meds and New Rx's Prescriptions: New sulfamethoxazole-trimethoprim [Bactrim DS] 800-160 mg tablet 2 tab PO BID Qty: 56 RF: 0 tramadol 50 mg tablet 50 mg PO QID PRN (Reason: pain) Qty: 30 RF: 0 Changed Suboxone 2-0.5 mg Film 12 film BUCCAL DAILY Qty: 0 RF: 0 No Action clonidine HCl 0.1 MG tablet 0.1 mg PO DAILY RF: 0 chlorthalidone 25 MG tablet 25 mg PO DAILY RF: 0 pantoprazole [Protonix] 20 MG tablet,delayed release (DR/EC) 20 mg PO HS RF: 0 ibuprofen 600 mg Tablet 600 mg PO BID RF: 0 acetaminophen 325 mg Tablet 650 mg PO Q6H PRNRF: 0 Discharge Instructions Additional Instructions: He needs to be seen back in my office in approximately 1 week. He should have a dry dressings applied to his wound that should be changed on an as-needed basis. It is expected that we will see some bloody drainage from the incision. This is expected and should not be a cause for concern. I would recommend keeping him out of the general population (in a medical board) until his follow-up appointment. He may shower with no restriction. He will need to take Bactrim DS 2 tablets p.o. twice a day until his follow-up appointment. This is for confirmed staph aureus in his surgical wound. While hospitalized, his pain control include Subutex 8 mg twice a day, oral oxycodone and IV Dilaudid. I have asked for an increase in his Subutex to 24 mg daily (can be given in divided dose of 8 mg TID) and to use prn Tramadol for breakthrough pain. Tylenol and NSAIDS are also recommended. We used as needed Xanax for anxiety. I have not provided a prescription for this medication. Referrals: Sudheer Perkins MD [ [facility] STAFF PHYSICIAN] - Activity:: Activity as Tolerated Equipment/Supplies:: No Equipment Needed Diet:: As Tolerated Discharge Orders Discharge Orders: Discharge Order (Routine); Ordered 05/15/18 Ordered By: Sudheer Perkins Discharge Data Discharge Comment: May only be discharged after today's dose of ceftriaxone is given Exam Narrative Exam Narrative: At the time of discharge, he was quite anxious and argumentative with the staff regarding pain control.. His vital signs are documented elsewhere in the chart. He was afebrile His scrotal incision was intact. The left hemiscrotum was diffusely enlarged but there was no fluctuance. He was awake and alert DS: Data Vitals/I&O Vitals and I&O: Vital Signs Temperature 37.8 C H 05/15/18 07:20 Temperature Source Tympanic 05/15/18 07:20 Pulse 100 H 05/15/18 07:20 Pulse Rhythm Regular 05/15/18 07:40 Respiratory Rate 19 05/15/18 07:20 Respiratory Effort Non-Labored 05/15/18 07:40 Respiratory Depth Normal 05/15/18 07:40 Respiratory Pattern Normal 05/15/18 07:40 Blood Pressure 153/81 H 05/15/18 07:20 Pulse Oximetry 92 L 05/15/18 07:20 Respiratory End-tidal CO2 44 05/13/18 14:24 Oxygen Delivery Method Room Air 05/15/18 07:20 Oxygen Flow Rate 0 05/15/18 07:20 Pain Level 9 05/15/18 11:11 Intake & Output 05/14/18 05/14/18 05/15/18 11:59 23:59 11:59 Intake Total 480 / 1480 1000 / 1480 1070 / 1070 Output Total 700 / 700 Balance -220 / 780 1000 / 780 1070 / 1070 Intake: IV 1000 / 1000 1070 / 1070 Oral 480 / 480 Output: Urine 700 / 700 Other: Urine Color Yellow Urine Appearance Clear Clear Urine Odor Normal Comment pt voiding independently in the bathroom Voiding Methods Urinal Toilet Labs on day of discharge: Preliminary micro results at discharge 05/13/18 12:45 Skin Culture - Preliminary Scrotum Staphylococcus Aureus Normal El[facility] Medical History Hydrocele in adult (Chronic) Hypertension (Chronic) Anxiety (Chronic) Narcotic addiction (Chronic) Surgical History History of genitourinary surgery (Acute) Social History Smoking/Tobacco Use Status: Current every day
--- NOTE | 2018-05-15 11:23 | DSE_ITS ---
Date of service: 05/15/18 Time of Service: 11:16 DS: Diagnosis Discharge Diagnosis (1) scrotal fistula: Status: Acute Discharge Plan Disposition [facility] Condition: Stable Discharge Details Reason For Visit: SCROTAL FISTULA Admit Date/Time: 05/13/18 14:20 Admit Provider: Sudheer Perkins Attending Provider: Sudheer Perkins [facility] Course Hospital Course: The patient was taken to the operating room for a wound revision. We sent the actual incision tissue to the lab for tissue culture. We did not find any discrete purulent material, but we did flush out his wound with combinations of antiseptics and antibiotics. We closed his wound primarily We kept him on broad-spectrum antibiotics while awaiting the culture and sensitivity. Ultimately, the culture and sensitivity showed staph aureus sensitive to Bactrim. He is being discharged back to the correctional facility on appropriate oral antibiotics As expected, his pain control was an issue. He continued to request additional narcotic in spite of his Subutex treatment. We tried to explain the chemical reason why narcotics would not be especially helpful in this situation, but he continued to demand oral and IV narcotics. We attempted to use anti- inflammatory medications, Tylenol and gabapentin, but he was quite reluctant to use any of these medications. Home Meds and New Rx's Prescriptions: New sulfamethoxazole-trimethoprim [Bactrim DS] 800-160 mg tablet 2 tab PO BID Qty: 56 RF: 0 tramadol 50 mg tablet 50 mg PO QID PRN (Reason: pain) Qty: 30 RF: 0 Changed Suboxone 2-0.5 mg Film 12 film BUCCAL DAILY Qty: 0 RF: 0 No Action clonidine HCl 0.1 MG tablet 0.1 mg PO DAILY RF: 0 chlorthalidone 25 MG tablet 25 mg PO DAILY RF: 0 pantoprazole [Protonix] 20 MG tablet,delayed release (DR/EC) 20 mg PO HS RF: 0 ibuprofen 600 mg Tablet 600 mg PO BID RF: 0 acetaminophen 325 mg Tablet 650 mg PO Q6H PRNRF: 0 Discharge Instructions Additional Instructions: He needs to be seen back in my office in approximately 1 week. He should have a dry dressings applied to his wound that should be changed on an as-needed basis. It is expected that we will see some bloody drainage from the incision. This is expected and should not be a cause for concern. I would recommend keeping him out of the general population (in a medical board) until his follow- up appointment. He may shower with no restriction. He will need to take Bactrim DS 2 tablets p.o. twice a day until his follow-up appointment. This is for confirmed staph aureus in his surgical wound. While hospitalized, his pain control include Subutex 8 mg twice a day, oral oxycodone and IV Dilaudid. I have asked for an increase in his Subutex to 24 mg daily (can be given in divided dose of 8 mg TID) and to use prn Tramadol for breakthrough pain. Tylenol and NSAIDS are also recommended. We used as needed Xanax for anxiety. I have not provided a prescription for this medication. Referrals: Sudheer Perkins MD [ [facility] STAFF PHYSICIAN] - Activity:: Activity as Tolerated Equipment/Supplies:: No Equipment Needed Diet:: As Tolerated Discharge Orders Discharge Orders: Discharge Order (Routine); Ordered 05/15/18 Ordered By: Sudheer Perkins Discharge Data Discharge Comment: May only be discharged after today's dose of ceftriaxone is given Exam Narrative Exam Narrative: At the time of discharge, he was quite anxious and argumentative with the staff regarding pain control.. His vital signs are documented elsewhere in the chart. He was afebrile His scrotal incision was intact. The left hemiscrotum was diffusely enlarged but there was no fluctuance. He was awake and alert DS: Data Vitals/I&O Vitals and I&O: Vital Signs Temperature 37.8 C H 05/15/18 07:20 Temperature Source Tympanic 05/15/18 07:20 Pulse 100 H 05/15/18 07:20 Pulse Rhythm Regular 05/15/18 07:40 Respiratory Rate 19 05/15/18 07:20 Respiratory Effort Non-Labored 05/15/18 07:40 Respiratory Depth Normal 05/15/18 07:40 Respiratory Pattern Normal 05/15/18 07:40 Blood Pressure 153/81 H 05/15/18 07:20 Pulse Oximetry 92 L 05/15/18 07:20 Respiratory End-tidal CO2 44 05/13/18 14:24 Oxygen Delivery Method Room Air 05/15/18 07:20 Oxygen Flow Rate 0 05/15/18 07:20 Pain Level 9 05/15/18 11:11 Intake & Output 05/14/18 05/14/18 05/15/18 11:59 23:59 11:59 Intake Total 480 / 1480 1000 / 1480 1070 / 1070 Output Total 700 / 700 Balance -220 / 780 1000 / 780 1070 / 1070 Intake: IV 1000 / 1000 1070 / 1070 Oral 480 / 480 Output: Urine 700 / 700 Other: Urine Color Yellow Urine Appearance Clear Clear Urine Odor Normal Comment pt voiding independently in the bathroom Voiding Methods Urinal Toilet Labs on day of discharge: Preliminary micro results at discharge 05/13/18 12:45 Skin Culture - Preliminary Scrotum Staphylococcus Aureus Normal [facility] Medical History Hydrocele in adult (Chronic) Hypertension (Chronic) Anxiety (Chronic) Narcotic addiction (Chronic) Surgical History History of genitourinary surgery (Acute) Social History Smoking/Tobacco Use Status: Current every day
--- NOTE | 2018-05-15 11:40 | PDOC.CMDIS ---
- If Service Date Differs Date of service: 05/15/18 Time of Service: 11:40 LACE Index Scoring Tool - Questions: Length of Stay (in days): 2 Acuity (Admit via E.D.?): No E.D. Visits: 4 - Answers: Total Score: 6 Risk of Readmission: Low Risk Care Management Discharge Reason for Hospitalization: Scrotal Fistula Discharge Plan: Nahum will return to The correctional facility today. Guard will transport him. He will F/U with Dr. Perkins and plan of care as prescribed. Correctional facility guards to transport. Patient/Family Education Needs: Review DC instructions, any limitations, and discuss Ask Me Three
[2018-05-15] MEDS: HYDROmorphone 4 MG TAB 8 MG PO (13:45)
== END 2018-05-15 13:55 | disposition home or self-care (01) ==
LOC: MS 05-15 12:12 → PDS 05-17 10:43 → MS 05-17 10:45
PROVIDERS: Admitting Provider Urology; PCP Nurse Practitioner Family; Visit Provider Urology
PROC: 0VB50ZZ Excision of Scrotum, Open Approach (ICD-10-PCS; CPT 55150; principal; 2018-05-13 10:00)
DX: T81.83XA Persistent postprocedural fistula, initial encounter (principal); N50.89 Other specified disorders of the male genital organs; F17.210 Nicotine dependence, cigarettes, uncomplicated; B95.61 Methicillin susceptible Staphylococcus aureus infection as the cause of diseases classified elsewhere; F11.20 Opioid dependence, uncomplicated
CPT/HCPCS: 55150; 54700; 87077; 99219; 99232; 99239; 87070; 87186; G0378; J1580; J1885; J3490

== ENCOUNTER 2018-06-07 12:24 | Outpatient (CLI) | payer MEDICAID, SELFPAY ==
--- NOTE | 2018-06-07 09:43 | DI.US_ITS ---
SYMPTOMS/DIAGNOSIS: POSTPROCEDURAL HEMATOMA OF SYSTEM ORGAN OR STRUCTURE FOLLOWING SYSTEM PROCEDURE, N99.840 TESTICULAR ULTRASOUND: Comparison is made with [id number]. There is marked scrotal skin thickening on the left compared to the right. There is increased color flow within the area of swelling. There is some hyperemia within the left epididymis and a few small epididymal cysts. There is no evidence of testicular torsion. No testicular hyperemia is seen. IMPRESSION: Left scrotal skin thickening and hyperemia could indicate scrotal cellulitis. There is no evidence of recurrent hydrocele or hematoma.
== END 2018-06-07 12:44 ==
PROVIDERS: PCP Nurse Practitioner Family; Visit Provider Urology
DX: N50.89 Other specified disorders of the male genital organs (principal); Z98.890 Other specified postprocedural states; N99.840 Postprocedural hematoma of a genitourinary system organ or structure following a genitourinary system procedure
CPT/HCPCS: 76870

== ENCOUNTER 2018-07-19 09:03 | Day surgery (SDC) | payer OTHER, SELFPAY ==
[2018-07-19] VITALS (11 sets, daily range): BP systolic 104–160; BP diastolic 58–89; PULSE 66–91; RESP 10–18; TEMP 36.2–36.7; O2SAT 95–97
--- NOTE | 2018-07-19 09:59 | W.PM.HP.N ---
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 He underwent a hydrocelectomy but developed a postoperative hematoma and non healing wound. He presents for debridement an primary closure. Review of Systems Review of Systems No fevers or chills No vision change or dysphasia No diabetes or thyroid No shortness of breath, cough or hemoptysis No chest pain or palpitations Hx GERD No seizures, strokes or peripheral neuropathy No bleeding disorders or anemia No gout. Chronic pain Hx substance abuse PFSH Family History Other Heart disease Social History Smoking/Tobacco Use Status: Current every day Alcohol Intake: never Drug use: Current Sobriety Substance use type: former substance user Do you feel safe in your relationship?: Yes Meds Home Medications Medication Instructions Recorded Confirmed Type chlorthalidone 25 mg PO DAILY tab-cap 04/03/17 07/19/18 History clonidine HCl 0.1 mg PO DAILY tab-cap 04/03/17 07/19/18 History pantoprazole [Protonix] 20 mg PO HS tab-cap 04/03/17 07/19/18 History ibuprofen 600 mg PO BID 02/22/18 07/19/18 History acetaminophen 650 mg PO Q6H PRN 04/29/18 07/19/18 History buprenorphine-naloxone [Suboxone] 12 film BUCCAL DAILY #0 ea 05/15/18 07/19/18 Rx sulfamethoxazole-trimethoprim 2 tab PO BID #56 tab 05/15/18 07/19/18 Rx [Bactrim DS] tramadol 50 mg PO QID PRN #30 tab 05/15/18 07/19/18 Rx Allergies Allergy/AdvReac Type Severity Reaction Status Date / Time meloxicam [From Mobic] Allergy Severe Itching Unverified 05/13/18 11:38 bupropion [From Wellbutrin] AdvReac Mild Other (See Unverified 05/13/18 11:38 Comment) lisinopril AdvReac Mild cough Unverified 05/13/18 11:38 Exam Const Nutritional Appearance: overweight Neck Neck: supple Resp Effort & Inspection: normal respiratory effort Auscultation: clear to auscultation bilaterally Cardio Rate: regular rate Rhythm: regular rhythm GI Palpation: soft and no guarding Other: testes normal with adhesion between scrotal skin and testis Neuro General: alert, awake and oriented x3 Psych Speech and Movement: agitated Mood: anxious mood Results Last Vital Signs Temp 36.2 C L 07/19/18 09:13 Pulse 91 H 07/19/18 09:13 Resp 18 07/19/18 09:13 BP 135/86 07/19/18 09:13 Pulse Ox 96 07/19/18 09:13
[2018-07-19] MEDS: Lactated Ringers 1,000 ML 80 ML IV (10:13)
[2018-07-19] MEDS: ceFAZolin 2 GM/50 ML BAG IVPB (10:32)
[2018-07-19] MEDS: Bupivacaine 0.5% Pres-Free 30 ML VIAL (11:12)
--- NOTE | 2018-07-19 11:18 | W.PM.DSUDISC ---
Discharge Plan Disposition Patient Disposition: [facility] Condition: Stable Discharge Details Attending Provider: Sudheer Perkins Primary Care Provider: Mary Bazzi Home Meds and New Rx's Prescriptions: No Action clonidine HCl 0.1 MG tablet 0.1 mg PO DAILY RF: 0 chlorthalidone 25 MG tablet 25 mg PO DAILY RF: 0 pantoprazole [Protonix] 20 MG tablet,delayed release (DR/EC) 20 mg PO HS RF: 0 ibuprofen 600 mg Tablet 600 mg PO BID RF: 0 acetaminophen 325 mg Tablet 650 mg PO Q6H PRNRF: 0 sulfamethoxazole-trimethoprim [Bactrim DS] 800-160 mg tablet 2 tab PO BID Qty: 56 RF: 0 tramadol 50 mg tablet 50 mg PO QID PRN (Reason: pain) Qty: 30 RF: 0 buprenorphine-naloxone [Suboxone] 2-0.5 mg Film 12 film BUCCAL DAILY Qty: 0 RF: 0 Discharge Instructions Additional Instructions: Ice pack to scrotum OK to shower/bathe 07/20/18 Follow up appt in 2 to 4 weeks Recommend continue Subutex for postoperative pain control for @ 1 week Bactrim DS 2 tab PO BID for 5 days Activity:: no lifting/straining for @1 weeki Remove Dressings/Wound Care:: 24 hours Shower/Bathe:: 24 hours Diet:: As Tolerated Discharge Orders Discharge Orders: Discharge Order (Routine); Ordered 07/19/18 Ordered By: Sudheer Perkins DS: Diagnosis Discharge Diagnosis (1) scrotal fistula: Status: Chronic
[2018-07-19] MEDS: fentaNYL 100 MCG/2 ML VIAL IVP ×2 (12:00→12:20)
[2018-07-19] MEDS: ALPRAZolam 0.5 MG TAB 1 MG PO ×2 (12:11)
[2018-07-19] MEDS: HYDROmorphone 2 MG/ML VIAL IVP ×3 (12:50→13:10)
--- NOTE | 2018-07-19 14:04 | ROE_ITS ---
DATE OF PROCEDURE: July 19, 2018 PREOPERATIVE DIAGNOSIS: Non-healing scrotal wound. POSTOPERATIVE DIAGNOSIS: Same. PROCEDURE: Debridement and closure of scrotal wound. SURGEON: Sudheer Perkins M.D. ANESTHESIA: General. COMPLICATIONS: None. HISTORY: This is a 47-year-old gentleman who developed a scrotal fistula after he had a left-sided h ydrocele repair. The skin has closed, but he has adhesions between the testis itself and the scrotal skin. He presents for debridement and repeat closure. OPERATIVE REPORT: The patient was brought to the Operating Room on 07/19/18. After successful inducti on of general anesthesia, he was placed in the supine position. His genitalia was prepped and draped . A scrotal field block was performed using 0.25% Marcaine. An elliptical incision was made overlying his previous incision. We used sharp and blunt dissection to dissect the former incision site away f rom the underlying testis. The debrided skin and subcutaneous tissue was sent to Pathology for Cultu re and Sensitivity. The testis appeared normal. We then closed the scrotal incision in multiple layers using #3-0 and #4 -0 undyed Vicryl. Dermabond was applied to the wound as well, followed by a fluff dressing and a scr otal support. The patient tolerated this procedure well with no complications. cc: Thelma Beal, JEREMIAS
== END 2018-07-19 13:50 | disposition home or self-care (01) ==
PROVIDERS: PCP Nurse Practitioner Family; Visit Provider Urology
PROC: (CPT 11042; principal; 2018-07-19 10:00)
DX: T81.89XA Other complications of procedures, not elsewhere classified, initial encounter (principal); N50.89 Other specified disorders of the male genital organs; B95.61 Methicillin susceptible Staphylococcus aureus infection as the cause of diseases classified elsewhere; Z16.29 Resistance to other single specified antibiotic
CPT/HCPCS: 11042; 87077; NC; 87070; 87186; 87205; J0690; J1100; J1885; J2250; J2405; J3010

== ENCOUNTER 2018-11-04 07:42 | Inpatient (IN) | payer MEDICAID, SELFPAY ==
[2018-11-04] VITALS (18 sets, daily range): BP systolic 106–170; BP diastolic 53–97; PULSE 60–78; RESP 10–19; TEMP 36.1–37.1; O2SAT 92–98
[2018-11-04] MEDS: Lactated Ringers 1,000 ML 80 ML IV ×2 (08:05→22:06)
--- NOTE | 2018-11-04 08:17 | HPE_ITS ---
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 We will keep him in the hospital for IV antibiotics. We will expect that his pain complaints will be out of proportion to his physical findings and plan accordingly but using a combination of his Subutex, IV dialaudid and oral oxycodone. History of Present Illness Chief Complaint: Persistent scrotal fistula Narrative: This is a 48 year old man who has had a persistent scrotal fistula following hydrocelectomy. He has been debrided and closed multiple times and on each occasion, Staph (sensitive to daptomycin and Bactrim) has been identified. There is suspicion (but no definite proof) that he may be self infecting the area as a way to obtain additional pain medications. He now has a small fistula tract on the left hemiscrotum. He presents for debridement, washout with antiseptics and 48 hours of IV antibiotic therapy. He describes severe pain but no fever or chills. He feels a hard spot under the old incision site, but minimal serous drainage. He has not seen any drainage for the past 4 days. He has no fever or chills. Review of Systems Review of Systems No fevers or chills No vision change or dysphasia No diabetes or thyroid No shortness of breath, cough or hemoptysis No chest pain or palpitations Hx GERD. No hepatitis, ulcers, jaundice, diarrhea or constipation No seizures, strokes or peripheral neuropathy No bleeding disorders or anemia No gout or arthralgia [facility] Social History Smoking/Tobacco Use Status: Current every day Alcohol Intake: never Drug use: Current Sobriety Substance use type: former substance user Additional Social history: Pt currently residing at [facility] Medications Medication Instructions Recorded Confirmed Type clonidine HCl 0.1 mg PO BID tab-cap 04/03/17 11/04/18 History pantoprazole [Protonix] 40 mg PO HS tab-cap 04/03/17 11/04/18 History buprenorphine-naloxone [Suboxone] 16 BUCCAL DAILY #0 ea 05/15/18 07/19/18 Rx tramadol 50 mg PO TID #30 tab 05/15/18 11/04/18 Rx acetaminophen [Tylenol] 650 mg PO TID 11/01/18 11/04/18 History amlodipine 2.5 mg PO DAILY 11/01/18 11/04/18 History furosemide [Lasix] 20 mg PO DAILY 11/01/18 11/04/18 History propranolol 40 mg PO BID 11/01/18 11/04/18 History buprenorphine HCl 8 mg SUBLINGUAL 11/04/18 History Allergies Allergy/AdvReac Type Severity Reaction Status Date / Time meloxicam [From Mobic] Allergy Severe Itching Unverified 11/04/18 08:03 bupropion [From Wellbutrin] AdvReac Mild Other (See Unverified 11/04/18 08:03 Comment) lisinopril AdvReac Mild cough Unverified 11/04/18 08:03 Exam Narrative Exam Narrative: He is anxious, but does not appear septic or toxic His vital signs are documented elsewhere in the chart His neck is supple. His lungs are clear. Cardiac exam: regular rate and rhythm Abdomen is soft with no guarding or rebound tenderness. His scrotum shows nor erythema, ecchymosis or fluctuance. He has a pinpoint opening in the mid scrotal incision. He is awake and alert Results Last Vital Signs Temp 36.1 C L 11/04/18 07:53 Pulse 69 11/04/18 07:53 Resp 16 11/04/18 07:53 BP 170/97 H 11/04/18 07:53 Pulse Ox 97 11/04/18 07:53
[2018-11-04] MEDS: Hydrogen Peroxide 3% 480 ML BTL (09:32)
[2018-11-04] MEDS: Bupivacaine 0.5% Pres-Free 30 ML VIAL (09:40)
[2018-11-04] MEDS: fentaNYL 100 MCG/2 ML VIAL IVP ×4 (10:31→11:41)
[2018-11-04] MEDS: LORazepam 2 MG/ML VIAL 0.5 MG IVP ×4 (10:40→11:15)
[2018-11-04] MEDS: HYDROmorphone 2 MG/ML VIAL IVP ×11 (10:43→23:07)
[2018-11-04] MEDS: oxyCODONE 10 MG TAB PO ×3 (10:55→20:15)
[2018-11-04] MEDS: ALPRAZolam 0.5 MG TAB PO ×2 (11:52→18:00)
[2018-11-04] MEDS: Acetaminophen 325 MG TAB 650 MG PO ×2 (13:47→20:16)
[2018-11-04] MEDS: Ketorolac 15 MG/ML VIAL IVP ×2 (16:53→22:01)
[2018-11-04] MEDS: cloNIDine 0.1 MG TAB PO (20:16)
[2018-11-04] MEDS: Propranolol 40 MG TAB PO (20:16)
[2018-11-04] MEDS: Pantoprazole 20 MG TABCR 40 MG PO (22:01)
--- NOTE | 2018-11-04 22:11 | NUR.NOTE ---
Nursing Note: Patient is constantly asking for pain medications and reports he is sore and uncomfortable. Patient states his pain is worsening and that no one has told him if nursing has contacted the doctor about his worsening pain. Upon clinical observation by this RN, patient is non-diaphoretic. No grimacing. No guarding behavior. Patient appears calm. Normal breathing pattern. Vital signs are stable. And does not show signs of distress.
[2018-11-05] MEDS: ALPRAZolam 0.5 MG TAB PO ×5 (00:02→20:40)
[2018-11-05] MEDS: oxyCODONE 10 MG TAB PO ×3 (00:02→08:26)
[2018-11-05] MEDS: HYDROmorphone 2 MG/ML VIAL IVP ×9 (01:52→20:31)
[2018-11-05] MEDS: Ketorolac 15 MG/ML VIAL IVP ×3 (04:02→16:06)
[2018-11-05] MEDS: Normal Saline Flush 10 ML SYR IV ×7 (07:37→20:31)
[2018-11-05] MEDS: cloNIDine 0.1 MG TAB PO ×2 (08:26→20:32)
[2018-11-05] MEDS: Furosemide 20 MG TAB PO (08:26)
[2018-11-05] MEDS: Propranolol 40 MG TAB PO ×2 (08:26→20:29)
[2018-11-05] MEDS: amLODIPine 2.5 MG TAB PO (08:26)
--- NOTE | 2018-11-05 09:19 | ROE_ITS ---
DATE OF PROCEDURE: November 04, 2018 PREOPERATIVE DIAGNOSIS: Scrotal fistula. POSTOPERATIVE DIAGNOSIS: Same. PROCEDURE: Excisional debridement of fistula tract, washout of scrotal wound with primary closure. SURGEON: Sudheer Perkins M.D. ANESTHESIA: General. ESTIMATED BLOOD LOSS: 100 cc's COMPLICATIONS: None. SPECIMEN: Tissue sent for wound culture. HISTORY: This is a 48-year-old gentleman who had undergone hydrocelectomy in the past. He developed a postop scrotal fistula, which has persisted in spite of multiple debridement efforts. On each occ asion he has been cultured and staph has been identified. He presents now for excisional debridement and washout of the wound. We will close the wound primarily and keep him in the hospital for an add itional 48 hours for IV antibiotics. OPERATIVE REPORT: The patient was brought to the Operating Room on 11/04/18. After successful induct ion of general anesthesia, he was placed in the supine position. His genitalia was prepped and drap ed. An elliptical incision was made surrounding the identified left fistula tract. The tract was then fo llowed down to the level of the testis. The testis itself appeared normal with no necrotic areas. All firm and inflamed tissue was excised a nd sent to pathology for culture and sensitivity. The testis and spermatic cord were then irrigated using a combination of half-strength Betadine, half -strength hydrogen peroxide and saline. The testis was then delivered back within the left hemiscrotum. The scrotum was closed in two layers - the first layer utilized #3-0 chromic to close the dartos muscle; the skin was closed with simple interrupted #4-0 chromic. A fluff dressing and scrotal support were then applied. The patient tolerated the procedure well wit h no complications. cc: Adrianna Garcia
[2018-11-05] MEDS: Lactated Ringers 1,000 ML 80 ML IV (11:10)
--- NOTE | 2018-11-05 11:42 | W.PM.PROGNOT ---
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 I did offer to increase the dose of Toradol or Tylenol, but he declines. He is most concerned with his anxiety. I have agreed to increase his benzodiazepine but we will withdraw some of his narcotics so as to not compromise his respiratory status any more. Our plan is to discharge him back to the correctional facility tomorrow after his dose of antibiotics. I have ordered a CBC and a BMP for the morning to make sure he is stable for discharge. Subjective Interval history since last seen: POD #1 He is complaining of severe pain and aggressively asking for more narcotics. He describes both scrotal and low abdominal pain. Exam Narrative Exam Narrative: His vital signs are stable without changes usually associated with acute pain He has pinpoint pupils His scrotum is a bit eccyhymotic as expected without changes in the suprapubic area Objective Objective Clinical Data: Vital Signs Temperature 36.8 C 11/04/18 23:08 Temperature Source Tympanic 11/04/18 23:08 Pulse 78 11/04/18 23:08 Pulse Rhythm Regular 11/05/18 00:28 Respiratory Rate 19 11/04/18 23:08 Respiratory Effort Non-Labored 11/05/18 00:28 Respiratory Depth Normal 11/05/18 00:28 Respiratory Pattern Normal 11/05/18 00:28 Blood Pressure 117/71 11/04/18 23:08 Pulse Oximetry 92 L 11/04/18 23:08 Respiratory End-tidal CO2 49 11/04/18 11:45 Oxygen Delivery Method Room Air 11/04/18 23:08 Oxygen Flow Rate 0 11/04/18 23:08 Pain Level 8 11/05/18 11:03 Comment 11/04/18 23:08 Intake & Output 11/04/18 11/04/18 11/05/18 11:59 23:59 11:59 Intake Total 550 / 1810 1260 / 1810 1240 / 1240 Balance 550 / 1810 1260 / 1810 1240 / 1240 Weight 119.4 kg Intake: IV 550 / 1050 500 / 1050 1000 / 1000 Oral 760 / 760 240 / 240 Other: Emesis Description None None
--- NOTE | 2018-11-05 12:01 | W.PM.DS.N ---
DS: Diagnosis Discharge Diagnosis (1) scrotal fistula: Status: Chronic Discharge Plan Disposition Patient Disposition: [facility] Condition: Stable Discharge Details Reason For Visit: SCROTAL FISTULA Admit Date/Time: 11/04/18 07:42 Admit Provider: Sudheer Perkins Attending Provider: Sudheer Perkins Primary Care Provider: None,None Hospital Course Hospital Course: The patient was admitted and taken to the operating room for excisional debridement, washout and closure of his scrotal fistula. We again sent the excised tissue to microbiology for tissue culture (expecting to again find the area colonized with staph). We treated him with daptomycin IV for total of 48 hours. His wound culture is growing gram-positive stacey. As with his other encounters, pain control was an issue. He was given his maintenance Suboxone as well as PRN Dilaudid, Toradol and acetaminophen. He was also given alprazolam for his anxiety. With the large doses of medications, his oxygenation was borderline. He repeatedly requested additional narcotics, but we did not feel that it was indicated given the low O2 saturations. He did have a fever of 39 degrees about 36 hours postoperatively. He had no other symptoms of sepsis such as hypotension. His urinalysis was normal, but he refused blood cultures. I saw no reason to keep him in the hospital since he was not agreeable to a fever work-up, so we will treat him for the most likely source of fever in the immediate postop period. This soon after surgery, the most likely source is atelectasis. A pulmonary source makes the most sense clinically given his low O2 saturation from massive doses of narcotics. He had no vomiting episodes that would make me concerned for aspiration pneumonia. We withdrew all of his sedatives on POD #2. He will be discharged back to his correctional facility after this morning's dose of daptomycin. We will have him on Bactrim DS 2 tablets twice a day for 7 to 10 days. He may resume his maintenance dose of Subutex and use NSAIDS, Tramadol and acetomenophen for pain control. Given his repiratory status, I would not suggest stronger narcotics. Incentive spirometry and ambulation should help with his respiratory status as well. He will follow-up in my office in 1 to 2 weeks for a wound check. Home Meds and New Rx's Prescriptions: No Action sulfamethoxazole-trimethoprim [Bactrim DS] 800-160 mg tablet 2 tab PO Q12H Qty: 40 RF: 0 tramadol 50 mg tablet 50 mg PO TID PRN Qty: 30 RF: 1 clonidine HCl 0.1 MG tablet 0.1 mg PO BID RF: 0 pantoprazole [Protonix] 20 MG tablet,delayed release (DR/EC) 40 mg PO HS RF: 0 buprenorphine-naloxone [Suboxone] 2-0.5 mg Film 16 BUCCAL DAILY Qty: 0 RF: 0 acetaminophen [Tylenol] 325 mg Tablet 650 mg PO TID RF: 0 amlodipine 2.5 mg Tablet 2.5 mg PO DAILY RF: 0 propranolol 40 mg Tablet 40 mg PO BID RF: 0 furosemide [Lasix] 20 mg Tablet 20 mg PO DAILY RF: 0 buprenorphine HCl 8 mg Tablet, Sublingual 8 mg SUBLINGUAL RF: 0 Discharge Instructions Additional Instructions: We will ask that he not engage in any strenuous activity for 1 to 2 weeks and remain in the medical unit (until his follow-up appointment) He may use ice packs to the scrotum to help decrease swelling He may shower He may resume his Subutex and tramadol for pain control. He may use anti-inflammatory medications along with both of these medications He should take Bactrim DS 2 pills twice a day for 10 days total He should use an incentive spirometer for pulmonary toilet Activity:: see above Equipment/Supplies:: scrotal support Diet:: As Tolerated Discharge Orders Discharge Orders: Discharge Order (Routine); Ordered 11/06/18 Ordered By: Sudheer Perkins Discharge Data Discharge Comment: discharge after today's Daptomycin dose Exam Narrative Exam Narrative: He is very somnolent after your recent pain medication His current temperature is 37.6 His lungs have slight expiratory wheezes but no rales or rhonchi His abdomen is soft with no masses The left hemiscrotum has some ecchymosis but is soft with no fluctuance or purulence His urinalysis is normal DS: Data Vitals/I&O Vitals and I&O: Vital Signs Temperature 36.8 C 11/04/18 23:08 Temperature Source Tympanic 11/04/18 23:08 Pulse 78 11/04/18 23:08 Pulse Rhythm Regular 11/05/18 00:28 Respiratory Rate 19 11/04/18 23:08 Respiratory Effort Non-Labored 11/05/18 00:28 Respiratory Depth Normal 11/05/18 00:28 Respiratory Pattern Normal 11/05/18 00:28 Blood Pressure 117/71 11/04/18 23:08 Pulse Oximetry 92 L 11/04/18 23:08 Respiratory End-tidal CO2 49 11/04/18 11:45 Oxygen Delivery Method Room Air 11/04/18 23:08 Oxygen Flow Rate 0 11/04/18 23:08 Pain Level 8 11/05/18 11:03 Comment 11/04/18 23:08 Intake & Output 11/04/18 11/05/18 11/05/18 23:59 11:59 23:59 Intake Total 1260 / 1810 1240 / 1240 Balance 1260 / 1810 1240 / 1240 Intake: IV 500 / 1050 1000 / 1000 Oral 760 / 760 240 / 240 Other: Emesis Description None Labs on day of discharge: Preliminary micro results at discharge 11/04/18 09:18 Surgical Culture - Preliminary Scrotum Gram Positive Stacey Gram Positive Stacey#2 [facility] Medical History Anxiety (Chronic) GERD (gastroesophageal reflux disease) (Chronic) History of chest pain (Acute) History of chronic pain (Acute) History of shortness of breath (Acute) Hydrocele in adult (Chronic) Hypertension (Chronic) Narcotic addiction (Chronic) Surgical History History of genitourinary surgery (Acute) Hx of foot surgery (Acute) Family History Other Heart disease Social History Smoking/Tobacco Use Status: Current every day Alcohol Intake: never Drug use: Current Sobriety Substance use type: former substance user Additional Social history: Pt currently residing at [facility]
--- NOTE | 2018-11-05 14:29 | INITIAL_ITS ---
- If Service Date Differs Date of service: 11/05/18 Time of Service: 14:29 Care Management Initial Assess REASON FOR HOSPITALIZATION:: Scrotal Fistula PAST MEDICAL HISTORY/PAST SURGICAL HISTORY:: Hydrocele, hypertension, anxiety, scrotal fistula PREVIOUS FUNCTIONAL STATUS/SOCIAL/FAMILY SUPPORTS:: Nahum currently resides at correctional facility in [place], [place] CURRENT FUNCTIONAL STATUS:: Nahum is in bed he has a guard at the bedside. He is receiving IV antibiotics and treatement for pain control. ADVANCE DIRECTIVES:: None on file - forms offered. Has patient been provided with information about the portal?: Yes Did the patient sign up for the portal?: No CODE STATUS:: Full Code INSURANCE COVERAGE / FINANCIAL ISSUES:: [facility] and Medicaid CURRENT HOME/COMMUNITY SERVICES/EQUIPMENT:: [facility] POTENTIAL DISCHARGE NEEDS:: Follow up with Dr. Perkins and Correctional facility provider PATIENT/FAMILY EDUCATION NEEDS:: Discharge education limitations follow-up plan of care and communication to correctional facility ANTICIPATED BARRIERS TO DISCHARGE:: None identified TRANSPORTATION:: Via guard at time of transfer return to correctional facility. PLAN:: Nahum continues to be monitored and on IV antibiotics pending cultures. No change today anticipate that he will be discharged over the weekend and follow up with as scheduled.
[2018-11-05 15:30] VITALS: BP 128/76; PULSE 90; RESP 19; TEMP 37.4; O2SAT 93
--- NOTE | 2018-11-05 18:56 | NUR.NOTE ---
Patient has been belligerent / rude with staff. At around 10:47 this AM patient refused nursing changing his dressing and told nursing he would do it myself. Nursing made physician aware. Patient then continually made rude statements to staff about his medications being late. Nursing calmly explained that his medications would be given within the timeframe they are due, except when staff is with another patient. Patient became argumentative and nursing disengaged from the patient. Patient was found picking at IV site and nursing reinforced the dressing several times. At noon nursing went in with physician to discuss current treatment and pain medications. Patient was appropriate with doctor but became belligerent with nursing when doctor left, and was upset because he wanted his PRN anxiety medications right now. Nursing told the patient she would be in shortly, within 5-10 minutes after the order processed and the patient became verbally abusive. Guards were present, and were laughing at the patient's rude behavior. Nursing made charge nurse aware of this. At 15:00 the patient agreed to change his dressing and nursing supervised. At 17:00 nursing went in to see the patient and his IV had been removed. Nursing asked the patient how that happened with a new dressing and the patient stated it just came out. Nursing alerted the patient that in order for him to have his IV medications he needed an IV. The patient became angry with nursing when he realized that he would not get his medications right away and stated This is your fault I'm getting my medications late, I want more of them. Nursing told the patient that was not possible and when the IV was in his orders would be followed. Nursing Note:
[2018-11-05 19:45] VITALS: BP 133/83; PULSE 88; RESP 20; TEMP 38; O2SAT 95
[2018-11-05] MEDS: Acetaminophen 325 MG TAB 650 MG PO (20:28)
[2018-11-05 22:34] VITALS: TEMP 39.6
[2018-11-06] MEDS: Ketorolac 15 MG/ML VIAL IVP ×2 (00:18→04:08)
[2018-11-06] MEDS: Pantoprazole 20 MG TABCR 40 MG PO (00:19)
[2018-11-06] MEDS: Normal Saline Flush 10 ML SYR IV ×4 (00:19→06:33)
[2018-11-06] MEDS: HYDROmorphone 2 MG/ML VIAL IVP ×3 (00:30→06:32)
[2018-11-06] MEDS: Lactated Ringers 1,000 ML 80 ML IV (00:30)
[2018-11-06 02:34] VITALS: TEMP 38.5
[2018-11-06 03:50] VITALS: BP 163/87; PULSE 96; RESP 18; TEMP 38.6; O2SAT 95
[2018-11-06] MEDS: ALPRAZolam 0.5 MG TAB PO (04:19)
--- NOTE | 2018-11-06 05:07 | NUR.NOTE ---
Nursing Note: Pt is refusing blood culture at this time, due to the fact that he is a hard stick. Explained why blood culture are important due to his fevers. Pt refused again.
[2018-11-06 05:45] VITALS: TEMP 37.6
[2018-11-06 06:07] LABS: Bilirubin Negative (Negative); Blood Negative (Negative); Clarity Clear (Clear); Glucose Negative (Negative); Ketones Negative (Negative); Leukocyte Esterase Negative (Negative); Nitrite Negative (Negative); Specific Gravity 1.025 (1.005-1.025); Urobilinogen 0.2 EU/dL (Up TO 0.2); pH 5.5 (5-8)
[2018-11-06] MEDS: Mylanta Suspension 30 ML CUP PO (06:31)
--- NOTE | 2018-11-06 07:30 | PGE_ITS ---
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 This would be the most likely cause of fevers this soon after surgery. Given his respiratory depression from analgesics, a pulmonary source is even more likely. He is not agreeable to a fever work-up, so I see no reason to keep him in the hospital. We will withdraw his narcotics and discharge him back to the correctional facility. 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 Subjective Interval history since last seen: The patient continues to complain of pain even when he is very somnolent due to his analgesics. He complained of indigestion early this morning He did become febrile overnight, but he refused blood cultures. His urinalysis was normal Exam Narrative Exam Narrative: His vital signs are documented elsewhere. He is afebrile this morning after having a spike of temperature to 39.6 last night His lungs have decreased breath sounds bilaterallyand some end expiratory wheezes, but no rales His wound shows some ecchymosis but no fluctuance or purulence Objective Objective Clinical Data: Vital Signs Temperature 37.6 C H 11/06/18 05:45 Temperature Source Tympanic 11/06/18 05:45 Pulse 96 H 11/06/18 03:50 Pulse Rhythm Regular 11/05/18 20:30 Respiratory Rate 18 11/06/18 03:50 Respiratory Effort Non-Labored 11/05/18 20:30 Respiratory Depth Normal 11/05/18 20:30 Respiratory Pattern Normal 11/05/18 20:30 Blood Pressure 163/87 H 11/06/18 03:50 Pulse Oximetry 95 11/06/18 03:50 Respiratory End-tidal CO2 49 11/04/18 11:45 Oxygen Delivery Method Room Air 11/06/18 03:50 Oxygen Flow Rate 0 11/06/18 03:50 Pain Level 6 11/06/18 03:50 Comment 11/06/18 05:45 Intake & Output 11/05/18 11/05/18 11/06/18 11:59 23:59 11:59 Intake Total 1290 / 2540 1250 / 2540 Balance 1290 / 2540 1250 / 2540 Intake: IV 0 / 0 1010 / 2060 Oral 240 / 480 240 / 480 Other: Urine Appearance Clear Comment patient uses toilet independently with his guards Stool Size Small Voiding Methods Toilet Laboratory Results Yellow (Yellow) 11/06/18 04:23 Clear (Clear) 11/06/18 04:23 5.5 (5-8) 11/06/18 04:23 Ur Specific [place] 1.025 (1.005-1.025) 11/06/18 04:23 Negative mg/dL (Negative) 11/06/18 04:23 Negative mg/dL (Negative) 11/06/18 04:23 Negative (Negative) 11/06/18 04:23 Negative (Negative) 11/06/18 04:23 Negative (Negative) 11/06/18 04:23 0.2 EU/dL (Up TO 0.2) 11/06/18 04:23 Ur Leukocyte Esterase Negative (Negative) 11/06/18 04:23 Negative mg/dL (Negative) 11/06/18 04:23
[2018-11-06 07:45] VITALS: BP 170/91; PULSE 88; RESP 12; TEMP 37.6; O2SAT 91
[2018-11-06] MEDS: Propranolol 40 MG TAB PO (08:13)
[2018-11-06] MEDS: Furosemide 20 MG TAB PO (08:13)
[2018-11-06] MEDS: amLODIPine 2.5 MG TAB PO (08:14)
[2018-11-06] MEDS: cloNIDine 0.1 MG TAB PO (08:14)
[2018-11-06] MEDS: Acetaminophen 325 MG TAB 650 MG PO (08:14)
[2018-11-06] MEDS: oxyCODONE 10 MG TAB PO (10:07)
--- NOTE | 2018-11-06 15:55 | CMDISCH_ITS ---
- If Service Date Differs Date of service: 11/06/18 Time of Service: 15:55 LACE Index Scoring Tool - Questions: Length of Stay (in days): 2 Acuity (Admit via E.D.?): No E.D. Visits: 1 - Answers: Total Score: 3 Risk of Readmission: Low Risk Care Management Discharge Reason for Hospitalization: Scrotal Fistula Discharge Plan: Nahum will be [facility] with no services. He will follow up with Dr. Perkins and his discharge plan of care. He will be transported by correctional officers. Patient/Family Education Needs: Discharge education limitations follow-up plan of care and communication to correctional facility
== END 2018-11-06 10:10 | disposition home or self-care (01) | DRG 717 ==
LOC: PDS 12:17 → MS 12:20
PROVIDERS: Admitting Provider Urology; Visit Provider Urology
PROC: 0VB50ZZ Excision of Scrotum, Open Approach (ICD-10-PCS; CPT 55175; principal; 2018-11-04 08:45)
DX: N50.89 Other specified disorders of the male genital organs (principal); F11.20 Opioid dependence, uncomplicated; J95.89 Other postprocedural complications and disorders of respiratory system, not elsewhere classified; J98.11 Atelectasis; R50.82 Postprocedural fever; B95.1 Streptococcus, group B, as the cause of diseases classified elsewhere; B95.61 Methicillin susceptible Staphylococcus aureus infection as the cause of diseases classified elsewhere; F41.9 Anxiety disorder, unspecified; R09.02 Hypoxemia
CPT/HCPCS: 55175; 80048; 85027; 87040; 87077; 99232; 99238; NC; 81003; 87070; 87186; 87205; J0878; J1885; J2060; J2250; J2405; J3010; J3490

== ENCOUNTER 2023-10-06 17:24 | Observation (INO) | payer OTHER, SELFPAY ==
[2023-10-06 17:32] VITALS: BP 230/109; PULSE 79; RESP 16; TEMP 36.8; O2SAT 95
[2023-10-06 17:47] VITALS: RESP 18
--- NOTE | 2023-10-06 17:50 | W.ED.GENAD ---
Discharge Plan Disposition Patient Disposition: Admit to [facility] Discharge Details Chief Complaint: GenMedical Clinical Impression: Diabetes mellitus with hyperglycemia Admit Date/Time: 10/06/23 21:49 Admit Provider: Nahum Us Attending Provider: Nahum Us Primary Care Provider: None,None ED Provider: Amish Smith General Date/Time Provider Initiated Documentation: 10/06/23 17:49. HPI Narrative: MDM This is an overall well-appearing normothermic and not tachycardic 53-year-old diabetic male with hyperglycemia concerning for the possibility of DKA for which he will receive labs. Patient does not appear markedly volume overloaded and though he is in hypertensive I am not concerned for acute heart failure given he is not having any shortness of breath so I did not obtain a proBNP. No chest pain to suggest ACS so I did not obtain an ECG. No dysuria no frequency so doubt UTI. Soft nontender abdomen so not concern for intra-abdominal process. Patient has decreased sensation in his bilateral lower extremities. His A1c is approximately 14 and certainly his peripheral neuropathy could be secondary to his uncontrolled diabetes. His bilateral feet are warm well-perfused he has no signs of any diabetic foot ulcers I do not feel that he requires an MRI. Good pulses bilateral lower extremities so I am not concerned for critical limb ischemia so I did not order a CTA to go. Patient has intermittently had a headache and this certainly could be explained by his uncontrolled diabetes. His headache was not sudden onset to suggest subarachnoid hemorrhage. No recent generator exposure so doubt carbon monoxide toxicity. No chiropractic manipulation to suggest increased risk for cervical arterial dissection. No hormone use to suggest increased risk for cervical venous sinus thrombosis. No eye pain so my suspicion is low for acute closed angle glaucoma. Patient does have a relatively elevated BMI however based on his age and sex my suspicion for idiopathic intracranial hypertension is low so I did not feel that he required a lumbar puncture. No nuchal rigidity to suggest meningitis. Not altered to suggest encephalitis. Neurologically intact so I am not suspicious for CVA so I do not feel that the patient requires CT scan of his head nor would he be a tPA candidate. In the emergency department patient had fear of trypanophobia. Patient reported that in the past he had received good anxiolysis with midazolam ketamine ondansetron tablets. I spoke to Jose Maurer who ordered these tablets with the patient. Unfortunately these only provide him moderate anxiolysis. Ultimately however patient was able to tolerate IV placement following Emla which I also ordered. 8:09 PM CBC showing leukopenia and mild normocytic anemia urinalysis showing trace ketones and glucosuria. Patient also has new thrombocytopenia. Nitrite negative and not consistent with UTI. 8:27 PM Reassuring normal magnesium. Marked hyperglycemia with a serum glucose of 586 mg/dL. No anion gap. Normal bicarbonate??not consistent with DKA. No ELVIS. Will add on A1c given the patient is incarcerated to determine the extent of his diabetes. Will repeat a blood pressure. 11:30 PM Given new onset diabetes and not on any medications will plan on hospitalizing the patient. Patient agreed to be admitted. I spoke with Dr. Us who graciously agreed to accept the patient for hospitalization. Chronic conditions affecting the care of the patient: Diabetes History obtained from an outside historian: Penitentiary records External record review: N/A Medications: Gabapentin for peripheral nephropathy Fentanyl acetaminophen ketorolac Social determinants of health affecting disposition: Currently incarcerated male with history of diabetes Management discussed with: Anesthesia and Dr. Us Treatment/interventions considered: N/A Response to therapies provided: N/A HPI This is a 53-year-old incarcerated right to the emergency department with multiple complaints. He has had cramping in his feet. Nurses found that his fingerstick blood glucose was greater than 600. He intermittently has had a headache blurry vision diaphoresis anxiety feet pain. Patient reports being nervous about needles. Denies dysuria and frequency. He endorses polydipsia and polyuria. His headache was not sudden in onset. He has been nauseous but has not been vomiting. He took his medications this morning. He endorses a cramping feeling in his hands. Exam General: Well-appearing in no acute distress speaking in complete sentences. Head: Normocephalic, atraumatic. Eye: Extraocular eye movements intact. No conjunctival injection. No scleral icterus. Ear, nose, mouth, throat: Grossly normal inspection. Normal voice, handling secretions normally. Neck: Trachea midline. No nuchal rigidity Cardiovascular: Well-perfused distal extremities. Regular rate and rhythm Respiratory: Nonlabored respiration. Clear lungs bilaterally Gastrointestinal: Nondistended abdomen. Soft nontender. Musculoskeletal: No significant lower extremity pitting edema. Moving all 4 extremities spontaneously. 5 out of 5 strength bilateral lower extremities. No signs of any diabetic foot ulcers. Skin: Normal for age and race, grossly normal temperature and turgor. No acute rash. Neurologic: Alert and appropriate, no apparent acute deficits. GCS 15. Psychiatric: Mood and manner are appropriate. Grooming and personal hygiene are appropriate. Related Data Home Medications Medication Instructions Recorded Confirmed clonidine HCl 0.1 mg tablet 0.2 mg PO BID 04/03/17 10/06/23 pantoprazole 20 mg tablet,delayed 40 mg PO HS 04/03/17 10/06/23 release (Protonix) buprenorphine 2 mg-naloxone 0.5 mg 16 buccal DAILY #0 ea 05/15/18 07/19/18 sublingual film (Suboxone) acetaminophen 325 mg tablet 650 mg PO TID 11/01/18 10/06/23 (Tylenol) amlodipine 2.5 mg tablet 2.5 mg PO DAILY 11/01/18 11/04/18 furosemide 20 mg tablet (Lasix) 20 mg PO DAILY 11/01/18 10/06/23 propranolol 40 mg tablet 40 mg PO BID 11/01/18 11/04/18 buprenorphine HCl 8 mg sublingual 8 mg sublingual DAILY 11/04/18 10/06/23 tablet sulfamethoxazole 800 2 tab PO Q12H #40 tabs 11/06/18 11/06/18 mg-trimethoprim 160 mg tablet (Bactrim DS) tramadol 50 mg tablet 50 mg PO TID PRN #30 tabs 11/06/18 11/06/18 labetalol 100 mg tablet 100 mg PO DAILY 10/06/23 10/06/23 losartan 100 mg tablet 100 mg PO DAILY 10/06/23 10/06/23 potassium chloride 10 mEq 10 meq PO DAILY 10/06/23 10/06/23 tablet,extended release Previous Rx's Medication Instructions Recorded buprenorphine 2 mg-naloxone 0.5 mg 16 buccal DAILY #0 ea 05/15/18 sublingual film (Suboxone) sulfamethoxazole 800 2 tab PO Q12H #40 tabs 11/06/18 mg-trimethoprim 160 mg tablet (Bactrim DS) tramadol 50 mg tablet 50 mg PO TID PRN #30 tabs 11/06/18 Allergies Allergy/AdvReac Type Severity Reaction Status Date / Time meloxicam [From Mobic] Allergy Severe Itching Unverified 11/04/18 08:03 bupropion [From Wellbutrin] AdvReac Mild Other (See Unverified 11/04/18 08:03 Comment) lisinopril AdvReac Mild cough Unverified 11/04/18 08:03 General Stated Complaint: GenMedical AMBER: 2 Course Vital Signs Vital signs: Vital Signs Temperature 36.8 C 10/06/23 17:32 Pulse 79 10/06/23 17:32 Respiratory Rate 16 10/06/23 17:32 Blood Pressure 230/109 H 10/06/23 17:32 Pulse Oximetry 95 10/06/23 17:32 Temperature 36.8 C 10/06/23 17:32 Pulse 79 10/06/23 17:32 Respiratory Rate 16 10/06/23 17:32 Respiratory Effort Normal 10/06/23 17:46 Blood Pressure 230/109 H 10/06/23 17:32 Pulse Oximetry 95 10/06/23 17:32 Pain Level 7 10/06/23 17:32 Medical Decision Making Quality:SDOH Health Related Social Needs: No Data to Display PFSH All Active Problems (Updated 10/06/23 @ 23:36 by Amish Smith MD) Diabetes mellitus with hyperglycemia (Acute) Diabetes (Chronic) Right hydrocele (Acute) scrotal fistula (Chronic) Postop Postprocedural hematoma of a genitourinary system organ or structure following a genitourinary system procedure (Acute 06/18/17) GERD (gastroesophageal reflux disease) (Chronic) Hydrocele in adult (Chronic) Hypertension (Chronic) Anxiety (Chronic) Medical History (Updated 10/06/23 @ 23:36 by Amish Smith MD) History of chronic pain Right foot History of shortness of breath History of chest pain Narcotic addiction Surgical History Hx of foot surgery Right foot History of genitourinary surgery Family History Other Heart disease Social History Smoking/Tobacco Use Status: Current every day Smoking risk assessment performed?: Yes Alcohol Intake: never Drug use: Current Sobriety Substance use type: former substance user Housing: other Additional Social history: Pt currently residing at [facility]
[2023-10-06] MEDS: Lidocaine/Prilocaine Cream 5 GM TUBE TP (18:37)
[2023-10-06] MEDS: Midazolam/Ketamine/Ondansetron (3/25/2MG) 1 TAB 2 EACH SL (18:37)
--- NOTE | 2023-10-06 19:14 | PDOC.ANES ---
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 Patient with elevated BGLs, possible DKA, unwilling to allow access and asking for what Dr. Perkins gave him. Patient did recieve two MKOs with orchiectomy. I did order those medications and they were administered by ED RN at 1837. Patient at this time still unwilling to allow for USG midline placement. I was allowed to scan his arm with the US and he does present with appropriate vasculature. I did double check and again patient refused. At this time as unwilling and being called for urgent care elsewhere I am leaving patient in care of ER without having established vascular access. RN aware and will communicate with Aamir Smith.
[2023-10-06 19:53] LABS: Bilirubin Negative (Negative); Blood Negative (Negative); Clarity Clear (Clear); Glucose >=1000 mg/dL (Negative); Ketones Trace mg/dL (Negative); Leukocyte Esterase Negative (Negative); Nitrite Negative (Negative); Urobilinogen 0.2 mg/dL (Up to 0.2); pH 5.5 (5-8)
[2023-10-06 19:53] LABS: Abs Immature Grans 0.01 10^3/uL (0.0-0.06); Absolute Basophil Count 0.02 10^3/uL (0.0-0.2); Absolute Eosinophil Count 0.05 10^3/uL (0.0-0.7); Absolute Lymphocyte Count 0.99 10^3/uL (1.2-3.4); Absolute Monocyte Count 0.25 10^3/uL (0.1-0.8); Absolute Neutrophil Count 2.05 10^3/uL (1.2-6.7); Basophils % 0.6 %; Eosinophils % 1.5 %; HCT 34.6 % (40.0-50.0); HGB 12.8 g/dL (13.5-17.5); Immature Grans % 0.3 %; Lymphocytes % 29.4 %; MCH 33.8 pg (27.0-33.0); MCV 91 fL (80-95); MPV 10.2 fL (8.0-11.0); Monocytes % 7.4 %; Neutrophils % 60.8 %; Platelet Count 101 10^3/uL (130-400); RBC 3.79 10^6/uL (4.36-5.78); RDW 11.7 % (11.8-14.1); RDW-SD 39.3 fL; WBC 3.37 10^3/uL (4.4-10.8)
[2023-10-06] MEDS: Normal Saline 500 ML IV (20:00)
[2023-10-06] MEDS: fentaNYL 100 MCG/2 ML VIAL 50 MCG IVP (20:01)
[2023-10-06 20:04] LABS: Bacteria Negative HPF (Negative); C & S Indicated? No; Casts Negative LPF (Negative); Crystals Negative HPF (Negative); Epithelial Cells Rare HPF (Negative); Mucus Negative (Negative); RBC 0-2 HPF (0-2); WBC Negative HPF (0-5)
[2023-10-06 20:11] LABS: ALT 110 U/L (16-63); AST 33 U/L (15-37); Albumin 4.2 g/dL (3.4-5.0); Alkaline Phosphatase 87 U/L (46-116); BUN 16 mg/dL (7-18); Bilirubin, Total 0.57 mg/dL (0.2-1.0); CREATININE 1.2 mg/dL (0.70-1.30); Calcium 8.8 mg/dL (8.5-10.1); Chloride 93 mmol/L (98-107); Estimated GFR 73.22 (mL/min/1.73m2); Magnesium 1.8 mg/dL (1.8-2.4); Potassium 4.1 mmol/L (3.5-5.1); Sodium 129 mmol/L (136-145); Total Protein 7.2 g/dL (6.4-8.2)
[2023-10-06 20:25] LABS: Glucose 586 mg/dL (74-106)
[2023-10-06 20:42] VITALS: BP 166/87
[2023-10-06 20:58] LABS: Hemoglobin A1C > 13.0 % (<5.7)
[2023-10-06] MEDS: Acetaminophen 500 MG TAB 1000 MG PO (21:12)
[2023-10-06] MEDS: Insulin REGULAR-Human 100 UNITS/ML UNIT IV (21:12)
[2023-10-06] MEDS: Gabapentin 300 MG CAP PO (21:12)
[2023-10-06] MEDS: Labetalol 100 MG TAB 50 MG PO (21:13)
[2023-10-06] MEDS: Ketorolac 15 MG/ML VIAL IVP (21:13)
--- NOTE | 2023-10-06 21:29 | HPE_ITS ---
Date of service: 10/06/23 Time of Service: 21:29 Assessment and Plan Assessment and plan (1) Diabetes: Status: Chronic Assessment and plan: New onset diabetes, presenting with classic triad of polyuria, polydipsia and weight loss, along with evident neuropathy. Osmolality corrects to approx 290 so this would be NKHS. Will give IVF, begin basal Lantus and titrate SS coverage; will likely need insulin intermediate manager but we shall see how he responds. As to neuropathy, states he has tried Neurontin (on the street) without effect, up to 3800 mg/day he states, but we cannot confirm the dosing of course. Will begin Lyrica and adjust regimen as needed. Will also need optho assessment. DM: as above Pseudohyponatremia: trend Neuropathy: begin Lyrica 50 tid HTN: continue usual regimen of ARB and Labetalol IVDA: copntinue Suboxone as is Anxiety: prn Ativan Full Code History of Present Illness History of Present Illness Chief Complaint: polyuria/polydipsia Narrative: 53 male reports 6 months of polyuria/polydipsia, 2 months of progressive numbness and pain of LEs and 40 pound weight loss over the same 2 months. [facility] reported >600 with A1c 14.1. Sent here for evaluation. In ER work up of note for glucose 586, A1c 13; sodium 129, HCO3 27; BUN 16, Creat 1.2; trace ketones in urine. Patient received 5 unit regular insulin, 1000 APAP, 300 Neuronitn and 50 Fentanyl. I was asked to evaluate for admission. Patient states he has never received diagnosis of diabetes (per nursing home A1c 6.1 in April). His main concern at this point is pain control for LEs, and his anxiety. Review of Systems Narrative: per HPI PFSH All Active Problems (Updated 10/06/23 @ 21:41 by Nahum Us MD) Diabetes (Chronic) Right hydrocele (Acute) scrotal fistula (Chronic) Postop Postprocedural hematoma of a genitourinary system organ or structure following a genitourinary system procedure (Acute 06/18/17) GERD (gastroesophageal reflux disease) (Chronic) Hydrocele in adult (Chronic) Hypertension (Chronic) Anxiety (Chronic) Medical History (Updated 10/06/23 @ 21:41 by Nahum Us MD) History of chronic pain Right foot History of shortness of breath History of chest pain Narcotic addiction Surgical History Hx of foot surgery Right foot History of genitourinary surgery Family History Other Heart disease Social History Smoking/Tobacco Use Status: Current every day Smoking risk assessment performed?: Yes Alcohol Intake: never Drug use: Current Sobriety Substance use type: former substance user Housing: other Additional Social history: Pt currently residing at [facility] Meds Allergies and Home Medications Allergies Allergy/AdvReac Type Severity Reaction Status Date / Time meloxicam [From Mobic] Allergy Severe Itching Unverified 11/04/18 08:03 bupropion [From Wellbutrin] AdvReac Mild Other (See Unverified 11/04/18 08:03 Comment) lisinopril AdvReac Mild cough Unverified 11/04/18 08:03 Home Medications Medication Instructions Recorded Confirmed Type clonidine HCl 0.1 mg tablet 0.1 mg PO BID 04/03/17 11/04/18 History pantoprazole 20 mg tablet,delayed 40 mg PO HS 04/03/17 11/04/18 History release (Protonix) buprenorphine 2 mg-naloxone 0.5 mg 16 buccal DAILY #0 ea 05/15/18 07/19/18 Rx sublingual film (Suboxone) acetaminophen 325 mg tablet 650 mg PO TID 11/01/18 11/04/18 History (Tylenol) amlodipine 2.5 mg tablet 2.5 mg PO DAILY 11/01/18 11/04/18 History furosemide 20 mg tablet (Lasix) 20 mg PO DAILY 11/01/18 11/04/18 History propranolol 40 mg tablet 40 mg PO BID 11/01/18 11/04/18 History buprenorphine HCl 8 mg sublingual 8 mg sublingual 11/04/18 History tablet sulfamethoxazole 800 2 tab PO Q12H #40 tabs 11/06/18 11/06/18 Rx mg-trimethoprim 160 mg tablet (Bactrim DS) tramadol 50 mg tablet 50 mg PO TID PRN #30 tabs 11/06/18 11/06/18 Rx Exam Narrative Exam Narrative: 166/87, 79, 36.8, 18, 95% RA. HEENT atraumatic; neck supple; lungs clear; heart RRR; abdomen soft and NT; extremities w/o edema; neuro Ox3, lucid, moves all 4s, decreased light touch, pin (and position) LEs to mid lynn Results Labs 10/06/23 19:38 10/06/23 19:38 Labs: Laboratory Results - last 24 hr 10/06/23 10/06/23 19:38 19:44 WBC 3.37 L RBC 3.79 L Hgb 12.8 L Hct 34.6 L MCV 91 MCH 33.8 H MCHC 37.0 H RDW 11.7 L Plt Count 101 L MPV 10.2 Immature Gran % 0.3 Neutrophils % 60.8 Lymphocytes % 29.4 Monocytes % 7.4 Eosinophils % 1.5 Basophils % 0.6 Nucleated RBC % 0.0 Absolute Neutrophils 2.05 Absolute Lymphocytes 0.99 L Absolute Monocytes 0.25 Absolute Eosinophils 0.05 Absolute Basophils 0.02 Sodium 129 L Potassium 4.1 Chloride 93 L Carbon Dioxide 27.0 Anion Gap 9.0 BUN 16 Creatinine 1.2 Est GFR (CKD-EPI 2020) 73.22 Glucose 586 H* Hemoglobin A1c > 13.0 H Calcium 8.8 Magnesium 1.8 Total Bilirubin 0.57 AST 33 ALT 110 H Alkaline Phosphatase 87 Total Protein 7.2 Albumin 4.2 Urine Color Yellow Urine Clarity Clear Urine pH 5.5 Ur Specific [place] 1.010 Urine Protein Negative Urine Ketones Trace H Urine Blood Negative Urine Nitrite Negative Urine Bilirubin Negative Urine Urobilinogen 0.2 Ur Leukocyte Esterase Negative Urine RBC 0-2 Urine WBC Negative Ur Epithelial Cells Rare Urine Crystals Negative Urine Bacteria Negative Urine Casts Negative Urine Mucus Negative Ur Culture Indicated? No Urine Glucose >=1000 H Last Vital Signs Temp 36.8 C 10/06/23 17:32 Pulse 79 10/06/23 17:32 Resp 18 10/06/23 17:47 BP 166/87 H 10/06/23 20:42 Pulse Ox 95 10/06/23 17:32 Time Spent Time spent with Patient: 55-74 minutes Time was spent: preparing to see the patient(eg.review tests), obtaining and/or reviewing separately otained hiistory, ordering medications,tests, procedures, referring, communicating with other health human services care specialist and indepentently interpreting results
[2023-10-06 23:24] VITALS: BP 125/52; PULSE 74; RESP 16; TEMP 36.7; O2SAT 97
[2023-10-06] MEDS: Ibuprofen 600 MG TAB PO (23:24)
[2023-10-06 23:32] VITALS: BP 125/52; PULSE 74; RESP 16; TEMP 36.7; O2SAT 97
[2023-10-07] MEDS: Normal Saline 1,000 ML 1000 ML IV (00:08)
[2023-10-07] MEDS: LORazepam 1 MG TAB PO (00:40)
[2023-10-07] MEDS: Pregabalin 50 MG CAP PO ×2 (00:51→08:07)
[2023-10-07] MEDS: Normal Saline 1,000 ML 150 ML IV (01:25)
--- NOTE | 2023-10-07 02:09 | NUR.NOTE ---
Nursing Note: 0205: Patient continues to refuse insulin injection due to fear of needles. Patient willing to recieve fingerstick for blood glucose levels. Attempted to demonstrate needle size and injection for insulin. Patient refused, claiming will accept dosing if he is given good dose of something for his anxiety. PO lorazepam 1mg had no effect according to patient.
[2023-10-07] MEDS: cloNIDine 0.1 MG TAB 0.2 MG PO (08:06)
[2023-10-07] MEDS: metFORMIN C.R. 500 MG TABCR PO (08:07)
[2023-10-07 08:08] VITALS: BP 186/86; PULSE 78; RESP 18; TEMP 36.4; O2SAT 95
--- NOTE | 2023-10-07 08:44 | PDOC.CMIN ---
Date of service: 10/07/23 Time of Service: 08:44 Care Management Initial Assmt Initial Assessment Reason for Hospitalization: Diabetes Functional Status/Living Situation Patient Presentation: Nahum [facility], [place] [facility] Resides with: Other (in correctional facility) Employment Status: Unemployed Instrumental Activities of Daily Living (ADLs): Independent Medications Medication Management: No Issues/Barriers identified Advance Directives Advance Directives: Do you have an Advance Directive: N 02/23/17 22:10 AD On File at [facility]: N 12/31/15 10:51 Date Asked 10/06/23 10/06/23 17:34 AD Date Reviewed COLST On File at [facility] COLST Date Scanned Code Status Resuscitation Status Full Code Portal Pt does not currently have a portal and education provided: No Insurance Coverage/Financial Issues Insurance: [facility] Care Team Visit Care Team Role Provider Type None None Primary Care Provider NON-[facility] STAFF PHYSICIAN Arielle Ly RDN, [facility] Other Providers MOVERS Dina Bradford Other Providers MOVERSSHAZIA Bourgeois RDN Other Providers MOVERS Anesthesia Consult Other Providers OTHER Amish Smith MD Emergency Provider [facility] STAFF PHYSICIAN Nahum Us MD Admit Provider [facility] STAFF PHYSICIAN Attending Provider Discharge Potential Discharge Needs: Other (f/u with facility providers) Anticipated Barriers to Discharge: None Identified Patient/Family Education Needs: Review discharge instructions, discuss Ask Me Three Transportation: Other (corrections staff) Plan: Anticipate Nahum will return to [facility] facility when he is medically cleared for discharge. He will follow up with facility providers and plan of care and transport with facility staff. CM will follow and continue to support discharge needs. PFSH All Active Problems (Updated 10/06/23 @ 23:36 by Amish Smith MD) Diabetes mellitus with hyperglycemia (Acute) Diabetes (Chronic) Right hydrocele (Acute) scrotal fistula (Chronic) Postop Postprocedural hematoma of a genitourinary system organ or structure following a genitourinary system procedure (Acute 06/18/17) GERD (gastroesophageal reflux disease) (Chronic) Hydrocele in adult (Chronic) Hypertension (Chronic) Anxiety (Chronic) Medical History (Updated 10/06/23 @ 23:36 by Amish Smith MD) History of chronic pain Right foot History of shortness of breath History of chest pain Narcotic addiction Surgical History Hx of foot surgery Right foot History of genitourinary surgery Family History Other Heart disease Social History Smoking/Tobacco Use Status: Current every day Smoking risk assessment performed?: Yes Alcohol Intake: never Drug use: Current Sobriety Substance use type: former substance user Housing: other Additional Social history: Pt currently residing at [facility] SDOH(Care Management) Screening Will the Patient Participate in the Screening?: Unable to obtain Social Determinants of Health Comments(SDOH Details): pt incarcerated
[2023-10-07] MEDS: Labetalol 100 MG TAB 50 MG PO (08:53)
--- NOTE | 2023-10-07 10:15 | W.PM.DS.N ---
Date of service: 10/07/23 Time of Service: 10:15 DS: Diagnosis Discharge Diagnosis (1) Diabetes: Status: Chronic Discharge Plan Disposition Patient Disposition: [facility] Condition: Stable Discharge Details Reason For Visit: diabetes Admit Date/Time: 10/06/23 21:49 Admit Provider: Nahum Us Attending Provider: Nahum Us Primary Care Provider: None,None Hospital Course Hospital Course: This is a 53-year-old male patient currently residing at the correctional facility presented here for evaluation of approximately 6 months of polyuria polydipsia and then 2 months of progressive numbness and pain in his bilateral lower extremities. He states he is lost 40 pounds. Blood sugars reported an average of greater than 600 with a A1c of 14.1. He was sent to the emergency department for evaluation he was given 5 units of regular insulin fentanyl Neurontin and acetaminophen and admitted under the hospitalist services. Reportedly his A1c was 6.1 in April 2023. 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 He was started on metformin and glipizide and Lyrica discontinued and he started on duloxetine for symptoms of anxiety and neuropathy. He has been medically stable no infection has been identified. He is stable and ready for discharge back to the correctional facility. He should continue to monitor his blood sugars and adjust his diabetes regimen accordingly per outpatient team. Discharge is discussed with Dr. Aly. Home Meds and New Rx's Prescriptions: New metformin 500 mg Tablet Extended Release 24 Hr 500 mg PO DAILY Qty: 30 0RF glipizide 5 mg Tablet 5 mg PO DAILY Qty: 30 0RF duloxetine 20 mg Capsule,Delayed Release(Dr/Ec) 20 mg PO DAILY Qty: 30 0RF Continued tramadol 50 mg tablet 50 mg PO TID PRN Qty: 30 1RF clonidine HCl 0.1 MG tablet 0.2 mg PO BID pantoprazole [Protonix] 20 MG tablet,delayed release (DR/EC) 40 mg PO HS acetaminophen [Tylenol] 325 mg Tablet 650 mg PO TID amlodipine 2.5 mg Tablet 2.5 mg PO DAILY propranolol 40 mg Tablet 40 mg PO BID furosemide [Lasix] 20 mg Tablet 20 mg PO DAILY buprenorphine HCl 8 mg Tablet, Sublingual 8 mg SUBLINGUAL DAILY labetalol 100 mg tablet 100 mg PO DAILY Patient Comments: TAKE 1 TABLET BY MOUTH TWICE DAILY potassium chloride 10 mEq tablet extended release 10 meq PO DAILY Patient Comments: TAKE 1 TABLET BY MOUTH DAILY losartan 100 mg tablet 100 mg PO DAILY Discontinued sulfamethoxazole-trimethoprim [Bactrim DS] 800-160 mg tablet 2 tab PO Q12H Qty: 40 0RF Discharge Instructions Instructions: Blood Glucose Monitoring, Treatment for type 2 diabetes, Diabetes and diet, How to Use an Insulin Pen Additional Instructions: check blood sugar before meals and at bedtime and record to bring to your doctor appointment take all medication as prescribed. Stand Alone Forms: Nursing Discharge Form Referrals: None,None [Primary Care Provider] - Activity:: Activity as Tolerated Equipment/Supplies:: Insulin and needles Diet:: Carb Counting Discharge Orders Discharge Orders: Discharge Order (Routine); Ordered 10/07/23 Ordered By: Venecia Macias Discharge Data Discharge Date/Time-TO BE ENTERED AT DEPARTURE: 10/07/23 11:43 DS: Summary Time Spent with Patient providing and/or coordinating discharge services: Greater than 30 minutes Status at Discharge Functional status at discharge: independent ambulation Overall status at discharge: patient is progressing back to baseline Mental Status: mental status grossly normal Speech and Movement: speech and movement normal Mood: congruent mood Affect: normal affect Quality:SDOH Health Related Social Needs: No Data to Display Exam Narrative Exam Narrative: Obese male appearing older than stated age in no acute distress sitting on the stretcher. His head is atraumatic normocephalic EOMs intact nonicteric noninjected oral mucosa is slightly dry neck is supple no JVD full range of motion cardiovascular regular rate and rhythm his respirations are even and unlabored his abdomen is round nontender. Psychiatric normal mood and affect neurologic he is awake alert oriented no focal deficits Psych Mental Status: mental status grossly normal Speech and Movement: speech and movement normal Mood: congruent mood Affect: normal affect DS: Data Vitals/I&O Vitals and I&O: Vital Signs Temperature 36.4 C L 10/07/23 08:08 Temperature Source Tympanic 10/07/23 08:08 Pulse 78 10/07/23 08:08 Pulse Rhythm Regular 10/07/23 01:37 Respiratory Rate 18 10/07/23 08:08 Respiratory Effort Normal 10/07/23 01:37 Respiratory Depth Normal 10/07/23 01:37 Respiratory Pattern Normal 10/07/23 01:37 Blood Pressure 186/86 H 10/07/23 08:08 Pulse Oximetry 95 10/07/23 08:08 Oxygen Delivery Method Room Air 10/07/23 08:08 Oxygen Flow Rate 0 10/07/23 08:08 Pain Level 9 10/07/23 08:08 Intake & Output 10/06/23 10/06/23 10/07/23 11:59 23:59 11:59 Intake Total 500 / 500 1999 Output Total 2435 / 2435 Balance 500 / 500 -435 / -435 Weight 106.141 kg Intake: IV 500 / 500 1999 Output: Urine 2435 / 2435 Other: Urine Color Yellow Urine Appearance Clear Clear Urine Odor None Voiding Methods Urinal Data Completed and Pending Labs on day of discharge: Labs from last 24 hours 10/07/23 10/06/23 10/06/23 05:35 19:44 19:38 WBC 3.37 L RBC 3.79 L Hgb 12.8 L Hct 34.6 L MCV 91 MCH 33.8 H MCHC 37.0 H RDW 11.7 L Plt Count 101 L MPV 10.2 Immature Gran % 0.3 Neutrophils % 60.8 Lymphocytes % 29.4 Monocytes % 7.4 Eosinophils % 1.5 Basophils % 0.6 Nucleated RBC % 0.0 Absolute Neutrophils 2.05 Absolute Lymphocytes 0.99 L Absolute Monocytes 0.25 Absolute Eosinophils 0.05 Absolute Basophils 0.02 Sodium Pending 129 L Potassium Pending 4.1 Chloride Pending 93 L Carbon Dioxide Pending 27.0 Anion Gap Pending 9.0 BUN Pending 16 Creatinine Pending 1.2 Est GFR (CKD-EPI 2020) Pending 73.22 Glucose Pending 586 H* Hemoglobin A1c > 13.0 H Calcium Pending 8.8 Magnesium 1.8 Total Bilirubin 0.57 AST 33 ALT 110 H Alkaline Phosphatase 87 Total Protein 7.2 Albumin 4.2 Urine Color Yellow Urine Clarity Clear Urine pH 5.5 Ur Specific [place] 1.010 Urine Protein Negative Urine Ketones Trace H Urine Blood Negative Urine Nitrite Negative Urine Bilirubin Negative Urine Urobilinogen 0.2 Ur Leukocyte Esterase Negative Urine RBC 0-2 Urine WBC Negative Ur Epithelial Cells Rare Urine Crystals Negative Urine Bacteria Negative Urine Casts Negative Urine Mucus Negative Ur Culture Indicated? No Urine Glucose >=1000 H PFSH All Active Problems (Updated 10/06/23 @ 23:36 by Amish Smith MD) Diabetes mellitus with hyperglycemia (Acute) Diabetes (Chronic) Right hydrocele (Acute) scrotal fistula (Chronic) Postop Postprocedural hematoma of a genitourinary system organ or structure following a genitourinary system procedure (Acute 06/18/17) GERD (gastroesophageal reflux disease) (Chronic) Hydrocele in adult (Chronic) Hypertension (Chronic) Anxiety (Chronic) Medical History (Updated 10/06/23 @ 23:36 by Amish Smith MD) History of chronic pain Right foot History of shortness of breath History of chest pain Narcotic addiction Surgical History Hx of foot surgery Right foot History of genitourinary surgery Family History Other Heart disease Social History Smoking/Tobacco Use Status: Current every day Smoking risk assessment performed?: Yes Alcohol Intake: never Drug use: Current Sobriety Substance use type: former substance user Housing: other Additional Social history: Pt currently residing at [facility] Time Spent with Patient Time Spent with Patient: 70-84 minutes4 Time was spent: preparing to see the patient(eg.review tests), obtaining and/or reviewing separately otained hiistory, ordering medications,tests, procedures, indepentently interpreting results and counseling the patient
[2023-10-07] MEDS: glipiZIDE 5 MG TAB PO (10:33)
[2023-10-07 10:35] VITALS: BP 159/89
--- NOTE | 2023-10-07 11:23 | NUR.NOTE ---
Discharge orders received. Went to remove right fa IV, firm area noted at insertion site. Dressing had been curled up on one side. When removing IV, noted that the IV catheter was not all the way under skin. Removed IV and held pressure for 2 full minutes. Still had some drainage from site, sero-sang from blood mixed with NS. Held 2 more minutes with success. Nursing Note:
--- NOTE | 2023-10-07 13:21 | CMPROGNOTE_ITS ---
Date of service: 10/07/23 Time of Service: 13:21 Care Management Progress Note Progress Note Text Progress Note Text: Nahum was admitted from the local correctional facility with a new diagnosis of Diabetes. He was treated and responded well and was discharged back this morning before CM could meet with him. Discharge Potential Discharge Needs: Other (follow up with providers at the corrections compound) Anticipated Barriers to Discharge: None Identified Patient/Family Education Needs: Review discharge instructions, discuss Ask Me Three Transportation: Other (with corrections staff) Plan: Nahum was discharged back to the [facility] in [facility]. He will follow up with facility providers and plan of care and transported with corrections staff. SDOH(Care Management) Screening Will the Patient Participate in the Screening?: Unable to obtain Social Determinants of Health Comments(SDOH Details): pt incarcerated
== END 2023-10-07 11:43 ==
LOC: ER 17:46 → MS 23:18
PROVIDERS: Admitting Provider General Practice; Emergency Provider Emergency Medicine; Visit Provider General Practice
DX: E11.65 Type 2 diabetes mellitus with hyperglycemia (principal); E11.42 Type 2 diabetes mellitus with diabetic polyneuropathy; I10 Essential (primary) hypertension; F11.20 Opioid dependence, uncomplicated; R63.4 Abnormal weight loss; F41.9 Anxiety disorder, unspecified; K21.9 Gastro-esophageal reflux disease without esophagitis; Z79.899 Other long term (current) drug therapy; D72.819 Decreased white blood cell count, unspecified; D64.9 Anemia, unspecified
CPT/HCPCS: 00123; 36415; 36416; 80048; 80053; 82962; 96361; 96374; 96375; 99285; 81003; 81015; 83036; 83735; 85025; 99222; 99239; G0378; J1815; J1885; J3010; J3490

== ENCOUNTER 2023-10-07 22:34 | Observation (INO) | payer OTHER, SELFPAY ==
[2023-10-07 22:37] VITALS: BP 191/91; PULSE 73; RESP 16; TEMP 36.3; O2SAT 96
--- NOTE | 2023-10-07 22:43 | W.ED.GENAD ---
Discharge Plan Disposition Patient Disposition: Admit to [facility] Condition: Fair Discharge Details Clinical Impression: Diabetic neuropathy, painful, Diabetes mellitus with hyperglycemia, Pancytopenia Primary Care Provider: None,None ED Provider: Chung Sebastian [place] and New Rx's Prescriptions: No Action tramadol 50 mg tablet 50 mg PO TID PRN Qty: 30 1RF clonidine HCl 0.1 MG tablet 0.2 mg PO BID pantoprazole [Protonix] 20 MG tablet,delayed release (DR/EC) 40 mg PO HS acetaminophen [Tylenol] 325 mg Tablet 650 mg PO TID amlodipine 2.5 mg Tablet 2.5 mg PO DAILY propranolol 40 mg Tablet 40 mg PO BID furosemide [Lasix] 20 mg Tablet 20 mg PO DAILY buprenorphine HCl 8 mg Tablet, Sublingual 8 mg SUBLINGUAL DAILY labetalol 100 mg tablet 100 mg PO DAILY Patient Comments: TAKE 1 TABLET BY MOUTH TWICE DAILY potassium chloride 10 mEq tablet extended release 10 meq PO DAILY Patient Comments: TAKE 1 TABLET BY MOUTH DAILY losartan 100 mg tablet 100 mg PO DAILY metformin 500 mg Tablet Extended Release 24 Hr 500 mg PO DAILY Qty: 30 0RF glipizide 5 mg Tablet 5 mg PO DAILY Qty: 30 0RF duloxetine 20 mg Capsule,Delayed Release(Dr/Ec) 20 mg PO DAILY Qty: 30 0RF HPI General Mode of arrival: ambulatory. Date/Time Provider Initiated Documentation: 10/07/23 22:40. Limitations to Documentation: no limitations. Information obtained by: patient, RN notes reviewed and old records reviewed. HPI Narrative: Patient returns to ED after being discharged earlier today from the hospital with recurrent elevated blood sugar. Patient was admitted to the hospital yesterday, the with new onset diabetes and hyperglycemia. He is probably been symptomatic for months. He has developed diabetic neuropathy in his feet. He has an extreme needle phobia and refuses insulin. He was started on metformin and glipizide and discharged back to [facility] this morning. His blood sugar on arrival at [facility] was around 500. Tonight it was about 480 and then went back up to greater than 600 and he was sent back here. Continues to complain of neuropathic pain in his feet, thirst, lightheadedness, anxiety. Related Data Home Medications Medication Instructions Recorded Confirmed clonidine HCl 0.1 mg tablet 0.2 mg PO BID 04/03/17 10/07/23 pantoprazole 20 mg tablet,delayed 40 mg PO HS 04/03/17 10/07/23 release (Protonix) acetaminophen 325 mg tablet 650 mg PO TID 11/01/18 10/07/23 (Tylenol) amlodipine 2.5 mg tablet 2.5 mg PO DAILY 11/01/18 10/07/23 furosemide 20 mg tablet (Lasix) 20 mg PO DAILY 11/01/18 10/07/23 propranolol 40 mg tablet 40 mg PO BID 11/01/18 10/07/23 buprenorphine HCl 8 mg sublingual 8 mg sublingual DAILY 11/04/18 10/07/23 tablet tramadol 50 mg tablet 50 mg PO TID PRN #30 tabs 11/06/18 10/07/23 labetalol 100 mg tablet 100 mg PO DAILY 10/06/23 10/07/23 losartan 100 mg tablet 100 mg PO DAILY 10/06/23 10/07/23 potassium chloride 10 mEq 10 meq PO DAILY 10/06/23 10/07/23 tablet,extended release duloxetine 20 mg capsule,delayed 20 mg PO DAILY #30 caps 10/07/23 10/07/23 release glipizide 5 mg tablet 5 mg PO DAILY #30 tabs 10/07/23 10/07/23 metformin 500 mg tablet,extended 500 mg PO DAILY #30 tabs 10/07/23 10/07/23 release 24 hr Previous Rx's Medication Instructions Recorded tramadol 50 mg tablet 50 mg PO TID PRN #30 tabs 11/06/18 duloxetine 20 mg capsule,delayed 20 mg PO DAILY #30 caps 10/07/23 release glipizide 5 mg tablet 5 mg PO DAILY #30 tabs 10/07/23 metformin 500 mg tablet,extended 500 mg PO DAILY #30 tabs 10/07/23 release 24 hr Allergies Allergy/AdvReac Type Severity Reaction Status Date / Time meloxicam [From Mobic] Allergy Severe Itching Unverified 10/07/23 22:40 bupropion [From Wellbutrin] AdvReac Mild Other (See Unverified 10/07/23 22:40 Comment) lisinopril AdvReac Mild cough Unverified 10/07/23 22:40 General Stated Complaint: Diabetes AMBER: 3 Review of Systems Narrative: Per HPI Exam Narrative Exam Narrative: Const: WDWN male in NAD. VS per triage. HEENT: NC/AT. Normal facial exam. Neck: Supple. Trachea midline. Lungs: Normal respiratory effort. Lungs are clear. Cor: RRR without murmur. Good radial pulses. GI: Soft/ND/NT. Neuro: A+O x 3. Normal speech, mentation, gait. Cranial nerves II - XII grossly intact. No gross motor or sensory deficit. Ext: No C/C/E. Course Vital Signs Vital signs: Vital Signs Temperature 97.4 F L 10/07/23 22:37 Pulse 73 10/07/23 22:37 Respiratory Rate 16 10/07/23 22:37 Blood Pressure 191/91 H 10/07/23 22:37 Pulse Oximetry 96 10/07/23 22:37 Temperature 97.4 F L 10/07/23 22:37 Pulse 73 10/07/23 22:37 Respiratory Rate 16 10/07/23 22:37 Blood Pressure 191/91 H 10/07/23 22:37 Pulse Oximetry 96 10/07/23 22:37 Pain Level 7 10/07/23 22:37 Medical Decision Making Patient with recent diagnosis of new onset diabetes who is needle phobic and will not take insulin. Admitted overnight last night and discharged this morning on 500 of metformin and 5 of glipizide. Blood sugar greater than 600 once again tonight. Likely needs a few days in the hospital to get his blood sugars stabilized especially if going to be on oral medications. Of note he is also on labetalol and propranolol. This is for blood pressure. He understands that they are both beta-blockers. Not clear why he is on both. Still having severe neuropathy pain. He was started on duloxetine but this will take a while to see any results. He does have narcotic dependence and is on Suboxone. He is written for as needed tramadol at [facility] but it is unclear how often he gets it. Patient required sublingual midazolam/ketamine/ondansetron for IV starts. This was given to him yesterday and has been given to him preop on multiple occasions. 2 tablets ordered. Will then plan IV, fluids, labs, possible IV insulin based on labs. I feel he will require readmission to the hospitalist service and closer management of his medication regimen prior to being discharged back to [facility]. The MKO tablets did not seem to work that well. Still very anxious cannot willing to try IV access. Given 2 mg of intranasal Versed in each nostril. Helped some but still very anxious. Patient reporting he has had alprazolam in the past with hospital admissions because of his anxiety. Given 2 mg and after some time IV ultrasound accomplished. Laboratory studies sent and fluids started. Laboratory studies continue to show a pancytopenia which was present on admission before. Kidney function remains normal. Electrolytes remain normal. Glucose was 531 in the lab. His VBG is normal. His anion gap is normal. Blood sugar down to 430 by fingerstick after liter of fluid. Discussed with hospitalist need for readmission for better management of blood sugar, evaluation of other medications including 2 different beta-blockers, use of tramadol and somebody on Suboxone which is likely not going to work. He was placed on duloxetine but this will take weeks to begin working. He had been on Lyrica which he stated at least to help with his foot pain. Discussed all the above with Dr. Yi. Patient accepted to hospitalist service for further management. Medical Records Medical records reviewed: Yes I reviewed the patient's medical records. Medical records narrative: see [facility] Lab Data Lab results reviewed: Yes I reviewed the patient's lab results. Lab results narrative: see [facility] Quality:SDOH Health Related Social Needs: No Data to Display PFSH All Active Problems (Updated 10/08/23 @ 02:18 by Chung Sebastian MD) Pancytopenia (Acute) Diabetic neuropathy, painful (Acute) History of chronic pain (Acute) Right foot Diabetes mellitus with hyperglycemia (Acute) Medical History Narcotic dependence GERD (gastroesophageal reflux disease) Diabetes Hypertension Anxiety Surgical History Hx of foot surgery Right foot History of genitourinary surgery Family History Other Heart disease Social History Smoking/Tobacco Use Status: Current every day Smoking risk assessment performed?: Yes Alcohol Intake: never Drug use: Current Sobriety Substance use type: former substance user Housing: other Additional Social history: Pt currently residing at [facility]
[2023-10-07] MEDS: Midazolam/Ketamine/Ondansetron (3/25/2MG) 1 TAB 2 EACH SL (23:05)
--- NOTE | 2023-10-07 23:15 | NUR.NOTE ---
Pt refused IV, labs and IVF as ordered at this time. Stated waiting for med to kick in.
--- NOTE | 2023-10-07 23:16 | NUR.NOTE ---
pt refused, IV, Labs and IVF at this time
[2023-10-07] MEDS: Midazolam 2 MG/2 ML VIAL 4 MG IJ (23:52)
[2023-10-08] VITALS (36 sets, daily range): BP systolic 131–196; BP diastolic 64–106; PULSE 57–83; RESP 11–20; TEMP 35.7–37; O2SAT 91–98
[2023-10-08] MEDS: ALPRAZolam 0.25 MG TAB 2 MG PO (00:14)
[2023-10-08] MEDS: Lactated Ringers 1,000 ML 1000 ML IV (01:07)
[2023-10-08 01:08] LABS: Abs Immature Grans 0.03 10^3/uL (0.0-0.06); Absolute Basophil Count 0.02 10^3/uL (0.0-0.2); Absolute Eosinophil Count 0.06 10^3/uL (0.0-0.7); Absolute Lymphocyte Count 0.99 10^3/uL (1.2-3.4); Absolute Neutrophil Count 1.41 10^3/uL (1.2-6.7); Basophils % 0.7 %; Eosinophils % 2.2 %; HCT 33.9 % (40.0-50.0); HGB 12.2 g/dL (13.5-17.5); Immature Grans % 1.1 %; Lymphocytes % 36.5 %; MCH 33.4 pg (27.0-33.0); MCV 93 fL (80-95); MPV 10.2 fL (8.0-11.0); Monocytes % 7.4 %; Neutrophils % 52.1 %; RBC 3.65 10^6/uL (4.36-5.78); RDW 12.1 % (11.8-14.1); RDW-SD 41.6 fL; WBC 2.71 10^3/uL (4.4-10.8)
[2023-10-08 01:09] LABS: BE (Venous) 2 mmol/L (-2-3); HCO3 (Venous) 26 mmol/L (23-28); O2 Sat (Venous) 98 %; TCO2 (Venous) 24 mmol/L (24-29); pCO2 (Venous) 42 mmHg (41-51); pO2 (Venous) 98 mmHg
[2023-10-08 01:14] LABS: Anion Gap 8.9 mmol/L (3-11); BUN 12 mg/dL (7-18); CO2 26.1 mmol/L (21.0-32.0); Calcium 8.5 mg/dL (8.5-10.1); Chloride 100 mmol/L (98-107); Estimated GFR 91.12 (mL/min/1.73m2); Magnesium 1.9 mg/dL (1.8-2.4); Potassium 4.7 mmol/L (3.5-5.1); Sodium 135 mmol/L (136-145)
[2023-10-08 01:23] LABS: Glucose 531 mg/dL (74-106)
[2023-10-08 01:28] LABS: Diff Comment PLT Morph Reviewed; Platelet Count 94 10^3/uL (130-400); RBC Morphology Normal
--- NOTE | 2023-10-08 02:21 | HPE_ITS ---
Date of service: 10/08/23 Time of Service: 02:21 Assessment and Plan Assessment and plan (1) Diabetes mellitus with hyperglycemia: Status: Acute Assessment and plan: This is a 53-year-old gentleman who is at the correctional facility locally having had a weight loss recently with polyuria polydipsia and now with new diagnosis of uncontrolled type 2 diabetes mellitus with hemoglobin A1c above 14. He was initiated on oral hypoglycemic and metformin with his short stay recently but continued with hyperglycemia. He is refusing glucometer measurements with insulin coverage with his last hospitalization unless he receives fentanyl for pain management. This is not reasonable. He will allow glucometer measurements at least and to go off her insulin treatment which will help with hyperglycemia acutely and patient not being in DKA. IV hydration may also help his acute hyperglycemia. Long-term he may do well with basal insulin and a GLP-1 agonist as injectables which were not as frequent as meal coverage. His metformin and glipizide will be continued with moderate sliding scale of short acting insulin while hospitalized. I will reinitiate Lyrica at a moderately high dose of 100 mg 3 times daily which may make him more comfortable taking subcu insulin since. Attempted to treat his pain appropriately. He is a full code. Qualifiers: Diabetes mellitus type: other specified (including JIMMIE) Diabetes mellitus halfway insulin use: without halfway use Qualified Code(s): E13.65 - Other specified diabetes mellitus with hyperglycemia (2) Diabetic neuropathy, painful: Start date: 10/06/23 Status: Chronic Assessment and plan: Patient was rerestarted on Lyrica 100 mg 3 times daily which could be advanced to 200 mg 3 times a day for pain management as an outpatient. This will work better than attempting directing the cardiac treatment as patient is requesting while hospitalized. He should continue Cymbalta and better control of his diabetes may help this problem. Insight is poor. (3) Pancytopenia: Status: Acute Assessment and plan: This appears to be a recent onset patient. Previous IV drug user with never having hepatitis. Further vesication should be with PCP as an outpatient considering hematology referral and if his liver function tests are elevated we should recheck a chronic infection such as hepatitis C. (4) Hypertension: Assessment and plan: Control present with patient in pain and hospitalized. Continue outpatient medical regimen and adjust as needed. Qualifiers: Hypertension type: primary hypertension Qualified Code(s): I10 - Essential (primary) hypertension (5) GERD (gastroesophageal reflux disease): Assessment and plan: Continue Protonix orally. Weight loss would help. Qualifiers: Esophagitis presence: without esophagitis Qualified Code(s): K21.9 - Gastro-esophageal reflux disease without esophagitis (6) Narcotic dependence: Assessment and plan: Continue Suboxone at dosing confirmed by correctional facility. (7) Anxiety: Assessment and plan: Cymbalta for neuropathic pain may also help with his depression and anxiety. Patient has poor coping skills and poor insight. He is not a candidate for chronic benzodiazepines being on Suboxone and having an addictive personality. History of Present Illness History of Present Illness Chief Complaint: New onset diabetes mellitus with hyperglycemia Narrative: This is a 53-year-old male patient who resides at the local correctional facility with a 6-month history of polyuria polydipsia with 40 pound weight loss in the last 2 months. He did have a glucose measurement over 600 with a hemoglobin A1c of greater than 14 being previously 6.1 in April 2023. He was hospitalized the day prior to this admission because of this glucose management and discharged the day of admission being initiated on oral treatment since he refuses subcutaneous insulin unless I get something for pain having received IV fentanyl for neuropathic pain by the admitting physician 10/06/2023. He was started on moderate dose of metformin and glipizide for his new onset diabetes and return to the correctional facility. He is eating and drinking but symptoms persist and he continues to have a glucose management around 600. He was sent back to the ED for re-evaluation. He was on Lyrica and a higher dose in the past which may have helped his neuropathic pain which has been progressive over the last several months with his new onset diabetes mellitus. He is currently on Suboxone and will not do well with narcotics for his neuropathic pain chronically. He is trying to negotiate that if we give him IV fentanyl he will allow us to do subcu insulin which I told him was not appropriate. He may cooperate with me reinitiate Lyrica today fairly high dose 100 mg 3 times daily. He was on 200 mg p.o. 3 times daily in the past. If this could be adjusted to the maximum dose in the correctional facility with treatment of neuropathic pain along with the initiation of Cymbalta in the last hospitalization. The patient was given some IV fluids in the ED but no insulin with this to be initiated with ACHS glucometer measurements with moderate dose correction insulin given on sliding scale. Patient is allowing glucometer measurements at least at this time. He also is allowing an IV with lactated Ringer's to be continued. He is a full code. Review of Systems Narrative: 13 point review of systems otherwise unrevealing or stable. Patient has poor insight into his addictive personality. PFSH All Active Problems (Updated 10/08/23 @ 03:09 by Nahum Yi) Pancytopenia (Acute) Diabetic neuropathy, painful (Chronic) History of chronic pain (Acute) Right foot Diabetes mellitus with hyperglycemia (Acute) Medical History Narcotic dependence GERD (gastroesophageal reflux disease) Diabetes Hypertension Anxiety Surgical History Hx of foot surgery Right foot History of genitourinary surgery Family History Other Heart disease Social History Smoking/Tobacco Use Status: Current every day Smoking risk assessment performed?: Yes Alcohol Intake: never Drug use: Current Sobriety Substance use type: former substance user Housing: other Additional Social history: Pt currently residing at [facility] Meds Allergies and Home Medications Allergies Allergy/AdvReac Type Severity Reaction Status Date / Time meloxicam [From Mobic] Allergy Severe Itching Unverified 10/07/23 22:40 bupropion [From Wellbutrin] AdvReac Mild Other (See Unverified 10/07/23 22:40 Comment) lisinopril AdvReac Mild cough Unverified 10/07/23 22:40 Home Medications Medication Instructions Recorded Confirmed Type clonidine HCl 0.1 mg tablet 0.2 mg PO BID 04/03/17 10/07/23 History pantoprazole 20 mg tablet,delayed 40 mg PO HS 04/03/17 10/07/23 History release (Protonix) acetaminophen 325 mg tablet 650 mg PO TID 11/01/18 10/07/23 History (Tylenol) amlodipine 2.5 mg tablet 2.5 mg PO DAILY 11/01/18 10/07/23 History furosemide 20 mg tablet (Lasix) 20 mg PO DAILY 11/01/18 10/07/23 History propranolol 40 mg tablet 40 mg PO BID 11/01/18 10/07/23 History buprenorphine HCl 8 mg sublingual 8 mg sublingual DAILY 11/04/18 10/07/23 History tablet tramadol 50 mg tablet 50 mg PO TID PRN #30 tabs 11/06/18 10/07/23 Rx labetalol 100 mg tablet 100 mg PO DAILY 10/06/23 10/07/23 History losartan 100 mg tablet 100 mg PO DAILY 10/06/23 10/07/23 History potassium chloride 10 mEq 10 meq PO DAILY 10/06/23 10/07/23 History tablet,extended release duloxetine 20 mg capsule,delayed 20 mg PO DAILY #30 caps 10/07/23 10/07/23 Rx release glipizide 5 mg tablet 5 mg PO DAILY #30 tabs 10/07/23 10/07/23 Rx metformin 500 mg tablet,extended 500 mg PO DAILY #30 tabs 10/07/23 10/07/23 Rx release 24 hr Exam Narrative Exam Narrative: General: Patient appears appropriate for age, moderately obese, alert and oriented x 3 and in no acute distress. He is slightly anxious with pressured speech and poor eye contact. HEENT: Normocephalic, pupils equal and react to light symmetrically, extraocular movement intact and sclera anicteric. Oropharynx with dry mucosa and poor dentition. Neck: Supple without JVD. Back: Stooped posture without CVA tenderness. Lungs: Clear to auscultation and percussion with no focalizing rales or rhonchi. Normal aeration. Heart: Regular rate and rhythm with no appreciable murmur or gallop. Abdomen: Obese contour, soft nontender to palpation with no palpable hepatosplenomegaly. No guarding or rebound. Bowel sounds positive in all quadrants. Details of his medical exam deferred. Extremities: Without clubbing, cyanosis or pitting edema. Fair capillary refill. Skin: Normal color, warm and dry. Neuro: Cranial nerves II through XII gross intact, no focal motor deficits. No tremor. Psych: Anxious affect with slightly pressured speech and slightly agitated at times. Mood depressed. No abnormal thought processes manifested. Recent and remote memory intact. Results Labs 10/08/23 01:00 10/08/23 00:50 Labs: Laboratory Results - last 24 hr 10/08/23 10/08/23 00:50 01:00 WBC 2.71 L RBC 3.65 L Hgb 12.2 L Hct 33.9 L MCV 93 MCH 33.4 H MCHC 36.0 RDW 12.1 Plt Count 94 L MPV 10.2 Immature Gran % 1.1 Neutrophils % 52.1 Lymphocytes % 36.5 Monocytes % 7.4 Eosinophils % 2.2 Basophils % 0.7 Nucleated RBC % 0.0 Absolute Neutrophils 1.41 Absolute Lymphocytes 0.99 L Absolute Monocytes 0.20 Absolute Eosinophils 0.06 Absolute Basophils 0.02 RBC Morphology Normal VBG pH Cancelled 7.40 VBG pCO2 Cancelled 42 VBG pO2 Cancelled 98 VBG HCO3 Cancelled 26 VBG Total CO2 Cancelled 24 VBG O2 Saturation Cancelled 98 VBG Base Excess Cancelled 2 Sodium 135 L Potassium 4.7 Chloride 100 Carbon Dioxide 26.1 Anion Gap 8.9 BUN 12 Creatinine 1.0 Est GFR (CKD-EPI 2020) 91.12 Glucose 531 H* Calcium 8.5 Magnesium 1.9 Last Vital Signs Temp 36.3 C L 10/07/23 22:37 Pulse 63 10/08/23 01:45 Resp 15 10/08/23 01:50 BP 170/82 H 10/08/23 01:45 Pulse Ox 96 10/07/23 22:37 Time Spent Time spent with Patient: >75 minutes Time was spent: preparing to see the patient(eg.review tests), obtaining and/or reviewing separately otained hiistory, ordering medications,tests, procedures, indepentently interpreting results, counseling the patient and care coordination
[2023-10-08 03:12] LABS: Bilirubin Negative (Negative); Blood Trace-intact (Negative); Clarity Clear (Clear); Glucose 500 mg/dL (Negative); Ketones Negative (Negative); Leukocyte Esterase Negative (Negative); Nitrite Negative (Negative); Specific Gravity 1.015 (1.005-1.025); pH 6.5 (5-8)
--- NOTE | 2023-10-08 03:18 | W.PCEDHO ---
Registration Status: REG ER Primary Language: Preferred Language: Khmer ED Information & Data Chief Complaint Diabetes 10/07/23 22:48 Chief Complaint Diabetes 10/07/23 22:43 Triage Note head ache, dizzy, nausea, 10/07/23 22:37 high anxiety, reported 2215 BS >600, feet painful. Refusing insulin for treatment of high BS. pt states i refuse to take any medication involving needles Medical / Surgical History (Last Reviewed 10/08/23 @ 02:27 by Nahum Yi) Narcotic dependence GERD (gastroesophageal reflux disease) Diabetes Hypertension Anxiety (Last Reviewed 10/08/23 @ 02:27 by Nahum Yi) Hx of foot surgery History of genitourinary surgery Most Recent Vital Signs Temperature 36.3 C L 10/07/23 22:37 Pulse 57 L 10/08/23 02:31 Pulse 70 10/08/23 02:31 Respiratory Rate 17 10/08/23 02:31 Respiratory Effort Normal 10/07/23 22:48 Blood Pressure 171/67 H 10/08/23 02:31 Blood Pressure Mean 104 10/08/23 02:31 Pulse Oximetry 96 10/07/23 22:37 Pain Level 7 10/07/23 22:37 Allergies meloxicam [From Mobic] Allergy (Severe, Unverified 10/07/23 22:40) Itching bupropion [From Wellbutrin] Adverse Reaction (Mild, Unverified 10/07/23 22:40) Other (See Comment) pt. states he got manic on it lisinopril Adverse Reaction (Mild, Unverified 10/07/23 22:40) cough Active Medications Generic Name Dose Route Start Last Admin Trade Name Freq PRN Reason Stop Dose Admin Miscellaneous Medication 2 each 10/07/23 23:00 10/07/23 23:05 Midazolam/Ketamine/Ondansetron (3/25/2mg) 1 Tab SL 2 each DIRECTED ALESHA Administration IV IV Catheter Type [Right Upper Peripheral IV arm] IV Catheter Gauge [Right Upper 20 arm] Diet Orders Category Date Time Status Diabetes Consistent CHO/Heart Healthy [DIET] Nutrition 10/08/23 Breakfast Active Diagnostics 10/08/23 10/08/23 10/08/23 Range/Units 05:35 03:08 02:33 WBC Pending (4.4-10.8) 10^3/uL RBC Pending (4.36-5.78) 10^6/uL Hgb Pending (13.5-17.5) g/dL Hct Pending (40.0-50.0) % MCV Pending (80-95) fL MCH Pending (27.0-33.0) pg MCHC Pending (32.0-36.0) % RDW Pending (11.8-14.1) % Plt Count Pending (130-400) 10^3/uL MPV Pending (8.0-11.0) fL Immature Gran % % Neutrophils % % Lymphocytes % % Monocytes % % Eosinophils % % Basophils % % Nucleated RBC % (0.0-0.3) % Absolute Neutrophils (1.2-6.7) 10^3/uL Absolute Lymphocytes (1.2-3.4) 10^3/uL Absolute Monocytes (0.1-0.8) 10^3/uL Absolute Eosinophils (0.0-0.7) 10^3/uL Absolute Basophils (0.0-0.2) 10^3/uL RBC Morphology PT INR VBG pH VBG pCO2 VBG pO2 VBG HCO3 VBG Total CO2 VBG O2 Saturation VBG Base Excess Sodium Pending (136-145) mmol/L Potassium Pending (3.5-5.1) mmol/L Chloride Pending (98-107) mmol/L Carbon Dioxide Pending (21.0-32.0) mmol/L Anion Gap Pending (3-11) mmol/L BUN Pending (7-18) mg/dL Creatinine Pending (0.70-1.30) mg/dL Est GFR (CKD-EPI 2020) Pending (mL/min/1.73m2) Glucose Pending (74-106) mg/dL Calcium Pending (8.5-10.1) mg/dL Magnesium Pending (1.8-2.4) mg/dL Total Bilirubin Pending AST Pending ALT Pending Alkaline Phosphatase Pending Total Protein Pending Albumin Pending TSH Pending Urine Color Pending Urine Clarity Pending Urine pH Pending Ur Specific [place] Pending Urine Protein Pending Urine Ketones Pending Urine Blood Pending Urine Nitrite Pending Urine Bilirubin Pending Urine Urobilinogen Pending Ur Leukocyte Esterase Pending Urine Glucose Pending Urine Opiates Screen Pending Ur Barbiturates Screen Pending Ur Tricyclics Screen Pending Ur Amphetamines Screen Pending U Benzodiazepines Scrn Pending Urine Cocaine Screen Pending Ur THC Screen Pending 10/08/23 10/08/23 10/08/23 Range/Units 02:32 01:00 00:50 WBC 2.71 L (4.4-10.8) 10^3/uL RBC 3.65 L (4.36-5.78) 10^6/uL Hgb 12.2 L (13.5-17.5) g/dL Hct 33.9 L (40.0-50.0) % MCV 93 (80-95) fL MCH 33.4 H (27.0-33.0) pg MCHC 36.0 (32.0-36.0) % RDW 12.1 (11.8-14.1) % Plt Count 94 L (130-400) 10^3/uL MPV 10.2 (8.0-11.0) fL Immature Gran % 1.1 % Neutrophils % 52.1 % Lymphocytes % 36.5 % Monocytes % 7.4 % Eosinophils % 2.2 % Basophils % 0.7 % Nucleated RBC % 0.0 (0.0-0.3) % Absolute Neutrophils 1.41 (1.2-6.7) 10^3/uL Absolute Lymphocytes 0.99 L (1.2-3.4) 10^3/uL Absolute Monocytes 0.20 (0.1-0.8) 10^3/uL Absolute Eosinophils 0.06 (0.0-0.7) 10^3/uL Absolute Basophils 0.02 (0.0-0.2) 10^3/uL RBC Morphology Normal PT Pending INR Pending VBG pH 7.40 Cancelled VBG pCO2 42 Cancelled VBG pO2 98 Cancelled VBG HCO3 26 Cancelled VBG Total CO2 24 Cancelled VBG O2 Saturation 98 Cancelled VBG Base Excess 2 Cancelled Sodium 135 L (136-145) mmol/L Potassium 4.7 (3.5-5.1) mmol/L Chloride 100 (98-107) mmol/L Carbon Dioxide 26.1 (21.0-32.0) mmol/L Anion Gap 8.9 (3-11) mmol/L BUN 12 (7-18) mg/dL Creatinine 1.0 (0.70-1.30) mg/dL Est GFR (CKD-EPI 2020) 91.12 (mL/min/1.73m2) Glucose 531 H* (74-106) mg/dL Calcium 8.5 (8.5-10.1) mg/dL Magnesium 1.9 (1.8-2.4) mg/dL Total Bilirubin AST ALT Alkaline Phosphatase Total Protein Albumin TSH Urine Color Urine Clarity Urine pH Ur Specific [place] Urine Protein Urine Ketones Urine Blood Urine Nitrite Urine Bilirubin Urine Urobilinogen Ur Leukocyte Esterase Urine Glucose Urine Opiates Screen Ur Barbiturates Screen Ur Tricyclics Screen Ur Amphetamines Screen U Benzodiazepines Scrn Urine Cocaine Screen Ur THC Screen [id number] Documentation Fingerstick Glucose Start: 10/08/23 02:05 Freq: Status: Complete Protocol: Activity Type Activity Date Activity User E-sign Co-sign Detail Recorded Client Recorded Date Recorded By Document 10/08/23 02:05 KRISTAL DAEMON(10) [id number] 10/08/23 02:05 BKG DAEMON(10) Intake and Output - 24 Hour Total 10/07/23 22:34 thru 10/08/23 02:07 Intake Total 1000 Output Total 750 Balance 250 Weight 60.781 kg Intake: IV 1000 Output: Urine 750 Falls Risk Assessment History of Falls No History 10/07/23 22:48 Contributing Factors No Factors 10/07/23 22:48 Ambulatory Aids Independent 10/07/23 22:48 Tubes/Lines None 10/07/23 22:48 Gait Evaluation No gait disturbance 10/07/23 22:48 Cognition No cognitive impairment 10/07/23 22:48 Fall Total Score 0 10/07/23 22:48 Level of Risk Standard/Low Risk 10/07/23 22:48 Problems (Last Reviewed 10/08/23 @ 02:27 by Nahum Yi) Pancytopenia (Acute) Diabetic neuropathy, painful (Chronic) Diabetes mellitus with hyperglycemia (Acute) Notes 10/07/23 23:16 Nursing Notes by Rodríguez Alfaro pt refused, IV, Labs and IVF at this time Initialized on 10/07/23 23:16 - END OF NOTE 10/07/23 23:15 Nursing Notes by Rodríguez Alfaro Pt refused IV, labs and IVF as ordered at this time. Stated waiting for med to kick in. Initialized on 10/07/23 23:15 - END OF NOTE v v v v v v v v v Sending and/or Receiving Nurses: Please use comment section below to note any information pertinent to the patient hand-off not included above. Information / Comments:Patient refusing all needles . aware . Report received from:Lemuel Payne RN
[2023-10-08 03:21] LABS: Bacteria Rare HPF (Negative); C & S Indicated? No; Crystals Negative HPF (Negative); Epithelial Cells Negative HPF (Negative); Mucus Negative (Negative); RBC 0-2 HPF (0-2); WBC Negative HPF (0-5)
[2023-10-08 03:36] LABS: *AMPHETAMINES SCREEN URINE Negative (Negative); *BARBITURATES SCREEN URINE Negative (Negative); *BENZODIAZEPINES SCREEN URINE Positive (Negative); Cannabinoids THC Negative (Negative); Cocaine Screen,Urine Negative (Negative); METHADONE URINE SCREEN Negative (Negative); OPIATES URINE SCREEN Negative (Negative)
[2023-10-08 03:38] LABS: Tricyclic Antidepressants Negative (Negative)
[2023-10-08] MEDS: Lactated Ringers 1,000 ML 150 ML IV ×3 (03:55→19:11)
--- NOTE | 2023-10-08 03:55 | NUR.NOTE ---
Patient arrived on floor from ED demanding more food . Explained to patient that his blood sugar is high and he has already eaten in ED. Patient stated Well get the doctor up here because I am ready to go then. Dr Yi called and stated patient could sign out AMA if he wished. This was communicated to patient but patient decided to stay. Nursing Note:
[2023-10-08] MEDS: Pregabalin 50 MG CAP 100 MG PO (05:07)
[2023-10-08] MEDS: traMADol 50 MG TAB PO ×3 (06:12→17:54)
[2023-10-08] MEDS: Acetaminophen 325 MG TAB PO ×3 (08:13→17:54)
[2023-10-08] MEDS: glipiZIDE 5 MG TAB 10 MG PO (08:13)
[2023-10-08] MEDS: DULoxetine 20 MG CAP PO (08:13)
[2023-10-08] MEDS: Labetalol 100 MG TAB PO (08:13)
[2023-10-08] MEDS: Losartan 50 MG TAB 100 MG PO (08:13)
[2023-10-08] MEDS: Propranolol 40 MG TAB PO ×2 (08:13→20:24)
[2023-10-08] MEDS: cloNIDine 0.1 MG TAB 0.2 MG PO ×3 (08:14→23:05)
[2023-10-08] MEDS: metFORMIN C.R. 500 MG TABCR 1000 MG PO (08:14)
[2023-10-08] MEDS: amLODIPine 2.5 MG TAB PO (08:14)
[2023-10-08] MEDS: Furosemide 20 MG TAB PO (08:14)
[2023-10-08] MEDS: Potassium Chloride 10 MEQ TABCR PO (08:14)
[2023-10-08] MEDS: Normal Saline Flush 10 ML SYR IVP (08:15)
--- NOTE | 2023-10-08 08:29 | INITIAL_ITS ---
Date of service: 10/08/23 Time of Service: 08:29 Care Management Initial Assmt Initial Assessment Reason for Hospitalization: Hyperglycemia Functional Status/Living Situation Patient Presentation: Discharge, with same day readmission for diabetes with Hyperglycemia, HA1C >14. Nahum has an extreme fear of needles which at this time is affecting ability to effectively manage his blood sugars. Nahum has severe anxiety and needs more time to support his ability to tolerate this treatment plan, per provider. Town of Residence: [facility] Resides with: Other ( incarcerated, [facility] facility) Instrumental Activities of Daily Living (ADLs): Independent Medications Medication Management: Issues/Barriers (Fear of needles affects adherence to treatment plan) Advance Directives Advance Directives: Do you have an Advance Directive: N 02/23/17 22:10 AD On File at [facility]: N 12/31/15 10:51 Date Asked 10/07/23 10/07/23 22:42 AD Date Reviewed COLST On File at [facility] COLST Date Scanned Code Status Resuscitation Status Full Code Insurance Coverage/Financial Issues ACO Member: No Care Team Visit Care Team Role Provider Type None None Primary Care Provider [facility] STAFF PHYSICIAN Arielle Ly RDN, [facility] Other Providers DATA SCIENTIST Dina Bradford Other Providers DATA SCIENTIST Ross Bourgeois RDN Other Providers DATA SCIENTIST Chung Sebastian MD Emergency Provider [facility] STAFF PHYSICIAN Nahum Yi Admit Provider [facility] Attending Provider Discharge Potential Discharge Needs: Other (F/U with facility provider: Chung Sebastian, may need Hem referral due to liver labs) Anticipated Barriers to Discharge: None Identified Patient/Family Education Needs: Review discharge instructions, discuss Ask Me Three Transportation: Facility Transport ([facility] will provide secure transport) Plan: Nahum will discharge back to the [facility] in [facility]. He will follow up with facility providers and plan of care and transported with corrections staff. PFSH All Active Problems (Updated 10/08/23 @ 03:09 by Nahum Yi) Pancytopenia (Acute) Diabetic neuropathy, painful (Chronic) History of chronic pain (Acute) Right foot Diabetes mellitus with hyperglycemia (Acute) Medical History Narcotic dependence GERD (gastroesophageal reflux disease) Diabetes Hypertension Anxiety Surgical History Hx of foot surgery Right foot History of genitourinary surgery Family History Other Heart disease Social History (Reviewed 10/08/23 @ 02: by Nahum Yi) Smoking/Tobacco Use Status: Current every day Smoking risk assessment performed?: Yes Alcohol Intake: never Drug use: Current Sobriety Substance use type: former substance user Housing: other Additional Social history: Pt currently residing at [facility] Readmission Within the Past 30 Days Yes or No: Yes Date of First Admission Date of 1st Admission: 10/06/23 Date of this Admission Date of Admission: 10/08/23 This admission was: Through ED Office Visit Since 1st Admission Have you seen your PCP in the office since discharge?: No ED visits How many ED visits in the past 12 months: 2 Assessment for Readmission Summary of readmission circumstances, based upon interviews: Adherance to diabetes management is affected by fear of needles. Severe anxiety r/t subQ injections of insulin. SDOH(Care Management) Screening Will the Patient Participate in the Screening?: Declined to provide Do you worry about having a steady place to live?: choose not to answer In the past 12 months, have you had to go without electric, gas, oil or water in your home?: choose not to answer Have you or anyone in your house had to go without enough food to eat?: choose not to answer Has lack of transportation kept you from medical appointments or from doing things needed for daily living?: choose not to answer Has anyone in your support network made you feel unsafe for any reason?: choose not to answer
[2023-10-08] MEDS: ALPRAZolam 0.5 MG TAB 2 MG PO ×2 (09:41→19:51)
[2023-10-08] MEDS: Insulin Glargine 300 UNITS/3 ML PEN 25 UNITS SC ×2 (10:18→23:39)
[2023-10-08 11:07] LABS: HGB 12.3 g/dL (13.5-17.5); MCHC 36.2 % (32.0-36.0); MCV 94 fL (80-95); MPV 10.1 fL (8.0-11.0); RBC 3.62 10^6/uL (4.36-5.78); RDW 11.9 % (11.8-14.1); RDW-SD 40.7 fL; WBC 2.62 10^3/uL (4.4-10.8)
[2023-10-08 11:11] LABS: Prothrombin Time 9.9 sec (9.1-11.1)
[2023-10-08 11:16] LABS: Platelet Count 96 10^3/uL (130-400)
[2023-10-08 11:21] LABS: ALT 91 U/L (16-63); AST 36 U/L (15-37); Albumin 3.5 g/dL (3.4-5.0); Alkaline Phosphatase 70 U/L (46-116); Anion Gap 7.6 mmol/L (3-11); BUN 9 mg/dL (7-18); Bilirubin, Total 0.45 mg/dL (0.2-1.0); CO2 29.4 mmol/L (21.0-32.0); Calcium 8.4 mg/dL (8.5-10.1); Chloride 101 mmol/L (98-107); Estimated GFR 91.12 (mL/min/1.73m2); Glucose 448 mg/dL (74-106); Magnesium 1.7 mg/dL (1.8-2.4); Potassium 3.8 mmol/L (3.5-5.1); Sodium 138 mmol/L (136-145); TSH (W/Ref FT4) 1.19 uIU/mL (0.36-3.74); Total Protein 6.7 g/dL (6.4-8.2)
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
[2023-10-08] MEDS: MAGNESIUM SULFATE 1 GM/100 ML BAG IVINF (19:07)
[2023-10-08] MEDS: Pregabalin 100 MG CAP PO (19:08)
[2023-10-08] MEDS: Pantoprazole 20 MG TABCR 40 MG PO (19:45)
[2023-10-08 20:34] LABS: Glucose 483 mg/dL (74-106)
[2023-10-08] MEDS: ALPRAZolam 0.25 MG TAB 1 MG PO (23:04)
[2023-10-08] MEDS: hydrOXYzine HCL 25 MG TAB PO (23:05)
[2023-10-09] VITALS (7 sets, daily range): BP systolic 114–165; BP diastolic 64–76; PULSE 63–80; RESP 12–17; TEMP 36.3–37.4; O2SAT 90–92
[2023-10-09] MEDS: Lactated Ringers 1,000 ML 150 ML IV (02:57)
[2023-10-09] MEDS: traMADol 50 MG TAB PO ×2 (02:57→16:41)
[2023-10-09] MEDS: Milk of Magnesia 30 ML CUP PO (05:58)
[2023-10-09] MEDS: Polyethylene Glycol 3350 17 GM PACKET PO (05:58)
[2023-10-09] MEDS: glipiZIDE 5 MG TAB 10 MG PO (07:37)
--- NOTE | 2023-10-09 08:13 | W.NUTRFU ---
Date of service: 10/09/23 Time of Service: 10:00 Nutrition Note NOTE: Visited with patient earlier and found him deeply sleeping. Pt is living in [facility] and diabetes education probably not too appropriate considering his meals/menus are pre determined per the facility food services department, which probably tend to include a good deal of refined starches. He has continue hyperglycemia with FPG at 395 this morning although this is an improvement over the last 3 days Pt currently on 10mg jardiance, 10mg glipizide (up from 5mg) and 1gm metformin (up from 500mg) and additional 55u glargine (30AM 25PM). Total insulin load= .5u/kg at 109kg. recommend increase to .6u/kg (65units total basal insulin) in consideration of obesity and glucose fingersticks in the 300's, and achieve this goal with increase by 3 units q2days with continued glycemic monitoring. ? also consider oral GLP-1 (Rybelsus) or DPP4 (sitagliptin) in light of needle phobia to see if this might lower need for basal insulin to just an AM or PM dose? - would think might need to d/c or lower glipizide to be cautious about hypoglycemia if either is considered.. Will monitor labs/glucose and attempt education if patiet desires Time Spent in Nutritional Counseling and Treatment: 10 min
[2023-10-09] MEDS: Potassium Chloride 10 MEQ TABCR PO (08:44)
[2023-10-09] MEDS: cloNIDine 0.1 MG TAB 0.2 MG PO ×2 (08:44→19:51)
[2023-10-09] MEDS: Propranolol 40 MG TAB PO ×2 (08:44→19:50)
[2023-10-09] MEDS: Losartan 50 MG TAB 100 MG PO (08:44)
[2023-10-09] MEDS: Pregabalin 100 MG CAP PO ×2 (08:44→19:53)
[2023-10-09] MEDS: Labetalol 100 MG TAB PO (08:45)
[2023-10-09] MEDS: metFORMIN C.R. 500 MG TABCR 1000 MG PO (08:45)
[2023-10-09] MEDS: ALPRAZolam 0.5 MG TAB 2 MG PO ×2 (08:45→20:58)
[2023-10-09] MEDS: Furosemide 20 MG TAB PO (08:45)
[2023-10-09] MEDS: amLODIPine 2.5 MG TAB PO (08:45)
--- NOTE | 2023-10-09 08:57 | NUR.NOTE ---
Nursing Note: pt stated he would take his am meds and insulin ONLY after taking alprazolam that I was promised. Discussed with pt that medications are timed for medical reasons and that nursing staff would look into his prn needs and applicable orders. He then stated I'm not doin nothin without the benzos I was promised. He restated this a few times. Advised pt that nursing staff is following hospital protocols and would tend to his needs as appropriate.
--- NOTE | 2023-10-09 09:05 | NUR.NOTE ---
After a detailed conversation with MD Rosa, per verbal order No more benzodiazipine medications for blood draw/ fingersticks. Will continue to monitor. Nursing Note:
--- NOTE | 2023-10-09 09:21 | PDOC.CMDIS ---
Date of service: 10/09/23 Time of Service: 09:21 LACE Index Scoring Tool Questions: Length of Stay (in days): 1 Was the patient admitted via the E.D.?: Yes Comorbidities: Liver or Renal Disease E.D. Visits: 2 Answers: Total Score: 11 Risk of Readmission: High Risk Care Management Discharge Plan Reason for Hospitalization: Diabetes mellitus with hyperglycemia, Pancytopenia Discharge Plan: Nahum will discharge back to [facility] Facility via facility vehicle which will be coordinated to Correctional staff. Nahum will follow up with facility providers who will facilitate his diabetic medication management. Patient/Family Education Needs: Review discharge instruction, limitations, medications and plan to follow up with facility providers. SDOH Health Related Social Needs: No Data to Display
[2023-10-09] MEDS: Normal Saline Flush 10 ML SYR IVP ×2 (09:39→19:53)
[2023-10-09] MEDS: Insulin Glargine 300 UNITS/3 ML PEN 30 UNITS SC (09:40)
[2023-10-09 10:08] LABS: Anion Gap 6.2 mmol/L (3-11); BUN 14 mg/dL (7-18); CO2 30.8 mmol/L (21.0-32.0); Chloride 100 mmol/L (98-107); Estimated GFR 91.12 (mL/min/1.73m2); Glucose 395 mg/dL (74-106); Magnesium 2.1 mg/dL (1.8-2.4); Potassium 3.9 mmol/L (3.5-5.1); Sodium 137 mmol/L (136-145)
[2023-10-09 10:34] LABS: Vitamin B12 650 pg/mL (193-986)
--- NOTE | 2023-10-09 11:28 | PGE_ITS ---
Date of Service Date of service: 10/09/23 Time of Service: 11:28 Assessment and Plan Assessment and plan (1) Diabetes mellitus with hyperglycemia: Status: Acute Assessment and plan: No evidence of DKA or honk and no acute mental status changes associated with his hyperglycemia.Glycohemoglobin A1c is greater than 13% indicative of long period of poorly controlled diabetes mellitus. Lab draw glucose this morning was 395 however it is not clear that whether or not this was a fasting level in all likelihood was not since this was drawn at 935 this morning. Fingerstick glucose today is 362 but has been as high as 483 last night. Continue twice a day dosing of glargine. Was put on 30 units in the morning and 25 at night. He remains on glipizide 10 mg daily metformin 1000 mg daily and I have added Jardiance 10 mg daily. After he has been on the Jardiance for several days glipizide may be titrated down or even discontinued while the glargine dose is titrated. will monitor him fr another 24hr since med changes made Qualifiers: Diabetes mellitus type: other specified (including JIMMIE) Diabetes mellitus ad terminal makeup operator insulin use: without ad terminal makeup operator use Qualified Code(s): E13.65 - Other specified diabetes mellitus with hyperglycemia (2) Diabetic neuropathy, painful: Start date: 10/06/23 Status: Chronic Assessment and plan: Patient was restarted on lyrica at higher dose of 100mg. Make BID as this is how it is covered as outpatient. (3) Pancytopenia: Status: Acute Assessment and plan: This appears to be a recent onset patient. Previous IV drug user with never having hepatitis. He should have repeat hepatitis B/C and HIV screens if he can tolerate another blood draw. F/u as outpatient (4) Hypertension: Assessment and plan: BP is reasonable at 130's to 160's, I would continue his current outpatient antihypertensives including losartan 100 mg daily, amlodipine 2.5 mg daily and clonidine 0.2 mg bid and propranolol (not the best combo in my opinion) Further adjustment can be made as outpatient. Qualifiers: Hypertension type: primary hypertension Qualified Code(s): I10 - Essential (primary) hypertension (5) GERD (gastroesophageal reflux disease): Assessment and plan: Continue Protonix orally. Weight loss would help. Qualifiers: Esophagitis presence: without esophagitis Qualified Code(s): K21.9 - Gastro-esophageal reflux disease without esophagitis (6) Anxiety: Assessment and plan: He declines trial on SSRI/SNRI, states other medications have not worked for him. He is on clonidine and propranolol. Patient has poor coping skills and poor insight. Has outpatient mental health provider. See above re: benzodiazepines. I suggested trial of an SSRI but patient declines. (7) Opioid use disorder, moderate, in early remission, on maintenance therapy, dependence: Assessment and plan: Continue Suboxone at dosing confirmed by correctional facility. (8) DVT prophylaxis: Status: Acute Assessment and plan: low risk, can d/c enoxaparin Subjective Subjective Interval history since last seen: Patient was dozing when I entered the room but awakened easily. Patient initially had been refusing his lab work and his fingerstick blood sugars this morning requesting more benzodiazepines and pain medications. However I explained that were not going to negotiate on his medications. He remains on alprazolam on the BID as needed schedule. He already has tramadol for his chronic pain. He remains on buprenorphine daily. I explained to him as well as the folks from the long term for monitoring him that we will monitor the patient for 1 more day since we just made recent changes in his diabetic regimen including changing his glargine to twice a day scheduling as well as addition of Jardiance. I discontinued his Actos we will continue the metformin and glipizide. Once has been on the glargine for few days and may want to consider Exam Narrative Exam Narrative: Initially patient was somnolent but then awake and answering questions appropriately denied any acute complaints. Does not seem to be anxious or agitated. Sat up and was requesting have his coffee repeated for up. Objective Last Vital Signs Temp 36.3 C L 10/09/23 07:30 Pulse 64 10/09/23 07:30 Resp 16 10/09/23 07:30 BP 165/76 H 10/09/23 07:30 Pulse Ox 92 10/09/23 07:30 Laboratory Results - last 24 hr 10/08/23 10/09/23 20:15 09:35 Sodium 137 Potassium 3.9 Chloride 100 Carbon Dioxide 30.8 Anion Gap 6.2 BUN 14 Creatinine 1.0 Est GFR (CKD-EPI 2020) 91.12 Glucose 483 H 395 H Calcium 9.0 Magnesium 2.1 Vitamin B12 650 Time Spent with Patient Time Spent with Patient: 25-34 minutes Time was spent: preparing to see the patient(eg.review tests), ordering medications,tests, procedures, referring, communicating with other health hospice care consultant, indepentently interpreting results, counseling the patient and care coordination
--- NOTE | 2023-10-09 11:34 | CMPROGNOTE_ITS ---
Date of service: 10/09/23 Time of Service: 11:35 Care Management Progress Note Progress Note Text Progress Note Text: Nahum was brought back to [facility] a few hours after he was discharged on 10/08/23 with a BS of 531. His FBS's have remained elevated during this admission and adjustments are being made to his diabetic medication regimen. Nahum's anxiety and fear of needles is being addressed, alprazolam may be given BID prn. See progress note. Medical [facility]. CM will continue to provide clinicals and updates to Mya at [facility] facility. Discharge summary will be faxed to [phone]. CM will continue to follow. Discharge Anticipated Barriers to Discharge: Other Patient/Family Education Needs: Review discharge instructions, discuss Ask Me Three Transportation: Facility Transport (Corrections) Plan: Nahum will discharge back to the [facility]. He will follow up with facility providers and plan of care and transported with corrections staff. SDOH(Care Management) Screening Will the Patient Participate in the Screening?: Declined to provide Do you worry about having a steady place to live?: choose not to answer In the past 12 months, have you had to go without electric, gas, oil or water in your home?: choose not to answer Have you or anyone in your house had to go without enough food to eat?: choose not to answer Has lack of transportation kept you from medical appointments or from doing things needed for daily living?: choose not to answer Has anyone in your support network made you feel unsafe for any reason?: choose not to answer
[2023-10-09] MEDS: Empaglifozin 10 MG TAB PO (11:43)
--- NOTE | 2023-10-09 12:02 | NUR.NOTE ---
Nursing Note: Administered Jardiance, pt verbalized understanding of med education. Pt also verbalized (unprompted) understanding of diet education/monitored snacking. Pt was cooperative and compliant.
[2023-10-09 13:21] LABS: COMMENT (LAB VIEW ONLY) 82.02 mg/dL; PROTEIN 13.4 mg/dL; Prot/Crea Ur Ratio 0.16
[2023-10-09 13:23] LABS: COMMENT (LAB VIEW ONLY) 81.76 mg/dL; Microalb ug/mg Crea 8.7 ug/mg Cr
--- NOTE | 2023-10-09 14:05 | NUR.NOTE ---
Nursing Note: Pts affect has changed. He is falling asleep while eating and during conversation, starting to shake. He d-sats to high 80s while sleeping. Hx of sleep apnea and has refused a CPAP in the past. Pt states his pain level has not improved. Took a BS at 1400, read 337. Updated hospitalist. No new orders at this time, with exception of NC Oxygen at 2L/min for SPO2 less than 88%. Will monitor closely.
[2023-10-09] MEDS: Docusate Sodium 100 MG CAP PO (16:31)
[2023-10-09] MEDS: Acetaminophen 325 MG TAB PO ×2 (16:40→21:00)
--- NOTE | 2023-10-09 17:57 | NUR.NOTE ---
Nursing Note: notified by guards that pt was observed hiding food in his bed or on his person. Pt has been using his call light frequently asking for medication that he was told it is too soon, several times. Medications and times given were written on pts white board for him to see. Another RN had gone into pts room to answer call light and stated that the pt told her he needed medication because he was having flashbacks. Assigned RNs checked in with pt, and pt did not mention anything relating to flashbacks, but demanded pain medications. Pt was again told he cannot have them yet due to being scheduled and PRN with time parameters.
[2023-10-09] MEDS: Pantoprazole 20 MG TABCR 40 MG PO (20:58)
[2023-10-09 21:45] LABS: Hepatitis B Surface Ab Positive (See Note)
[2023-10-09 21:54] LABS: Hepatitis B Surface Ag Negative (Negative)
[2023-10-09 22:52] LABS: Hepatitis C Ab w Rflx HCV PCR Reactive (Negative)
[2023-10-09 22:54] LABS: HIV-1/2 Ag & Ab Screen Negative (Negative)
[2023-10-10] MEDS: Acetaminophen 325 MG TAB PO ×4 (01:28→14:16)
[2023-10-10] MEDS: traMADol 50 MG TAB PO ×3 (01:34→14:16)
[2023-10-10 05:16] VITALS: BP 129/84; PULSE 74; RESP 16; TEMP 36; O2SAT 90
[2023-10-10 05:31] VITALS: BP 123/57; RESP 12; O2SAT 90
[2023-10-10] MEDS: ALPRAZolam 0.5 MG TAB 2 MG PO (07:57)
--- NOTE | 2023-10-10 08:31 | PDOC.CMDIS ---
Date of service: 10/10/23 Time of Service: 08:31 LACE Index Scoring Tool Questions: Length of Stay (in days): 2 Was the patient admitted via the E.D.?: Yes Comorbidities: Diabetes w/o Complication E.D. Visits: 2 Answers: Total Score: 8 Risk of Readmission: Low Risk Care Management Discharge Plan Reason for Hospitalization: Diabetes Discharge Plan: Nahum [facility]. He will follow up with facility providers and transport with correctional officers. Patient/Family Education Needs: Review discharge instructions, discuss Ask Me Three [facility] Health Related Social Needs: No Data to Display
[2023-10-10] MEDS: glipiZIDE 5 MG TAB 10 MG PO (08:46)
[2023-10-10] MEDS: Potassium Chloride 10 MEQ TABCR PO (08:47)
[2023-10-10] MEDS: cloNIDine 0.1 MG TAB 0.2 MG PO (08:47)
[2023-10-10] MEDS: Pregabalin 100 MG CAP PO (08:47)
[2023-10-10] MEDS: Labetalol 100 MG TAB PO (08:47)
[2023-10-10] MEDS: metFORMIN C.R. 500 MG TABCR 1000 MG PO (08:47)
[2023-10-10] MEDS: Furosemide 20 MG TAB PO (08:47)
[2023-10-10] MEDS: Propranolol 40 MG TAB PO (08:48)
[2023-10-10] MEDS: Losartan 50 MG TAB 100 MG PO (08:48)
[2023-10-10] MEDS: amLODIPine 2.5 MG TAB PO (08:52)
[2023-10-10] MEDS: Empaglifozin 10 MG TAB PO (08:54)
[2023-10-10] MEDS: clonazePAM 1 MG TAB PO (12:39)
[2023-10-10 12:45] VITALS: BP 130/68; PULSE 67; RESP 18; TEMP 36.4; O2SAT 91
--- NOTE | 2023-10-10 13:10 | W.PM.DS.N ---
Date of service: 10/10/23 Time of Service: 13:11 DS: Diagnosis Discharge Diagnosis (1) Diabetes mellitus with hyperglycemia: Status: Acute Asessment and Plan: Poorly controlled type II DM, glycohemoglobin A1C >13%, patient was recently hospitalized at [facility] for new diagnois of DM. He was diagnosed w/ the DM when he was hospitalized from 10/05 to 10/07/23 and was begun on metformin and glipizide. However, we expected that this would not be enough but he was refusing labs, refusing finger sticks and refused insulin. As expected he returned to [facility] on 10/07 d/t hyperglycemia asssociated w/ polyuria, polydypsia and now he is complaining of neuropathic pain in his feet. Patient was treated basal insulin of Lantus initially given at bedtime but uptitrated to bid schedule. His glipizide dose was increased to 10 mg and his metformin was increased to extended release 1000 mg per day which will now be increased to 2000 mg per day upon discharge. Lantus dose was increased to 30 units bid (30 units qam and 30 units qhs) and Jardiance 10 mg daily was added. Glucose on admission was 586 but his labs did not show diabetic ketoacidosis nor did he have any evidence for hyperosmolar hyperglycemic non-ketosis. Patient was given iv fluids on admission to help bring down his glucose and he was treated w/ basal and bolus insulin. However patient became demanding of increased benzodiazepines and narcotics to treat his anxiety over injections and his diabetic foot pain. Lyrica was restarted and uptitrated to 100 mg tid and he was put on tramadol for his pain. He was given alprazolam and duloxetine for his anxiety. (2) Diabetic neuropathy, painful: Status: Chronic Asessment and Plan: Lyrica 100 mg tid along w/ prn tramadol and capsacin cream (3) Pancytopenia: Status: Acute Asessment and Plan: patient was found to have pancytopenia (low WBC 2600 to 3300), mild anemia w/ Hb 12.3 gm and platelets of 96,000 to 101,000. (4) Hypertension: Asessment and Plan: treated w/ his usual doses of amlodipine, lasix, losartan and propranolol (5) GERD (gastroesophageal reflux disease): (6) Anxiety: Asessment and Plan: continue duloxetine and recommend psychiatry/[facility] from [facility] to discuss alternative to chronic benzodiazepines. (7) Opioid use disorder, moderate, in early remission, on maintenance therapy, dependence: Asessment and Plan: continue buprenorphine; try to avoid narcotic analgesics as much as possible d/t his addictive nature and risk for relapse Discharge Plan Disposition [facility] Condition: Improving Discharge Details Reason For Visit: New onset type 2 diabetes mellitus with Hyperglyce Admit Date/Time: 10/08/23 02:29 Admit Provider: Nahum Yi Attending Provider: Nahum Yi Primary Care Provider: None,None Home Meds and New Rx's Prescriptions: New polyethylene glycol 3350 17 gram Powder In Packet 17 g PO DAILY PRN PRN (Reason: Constipation) Qty: 0 0RF dextrose [Glutose-15] 40 % Gel 30 g PO DIRECTED PRNQty: 300 0RF Rx Instructions: give 30 gm po prn hypoglycemia pregabalin 100 mg Capsule 100 mg PO TID Qty: 0 0RF insulin glargine [Lantus Solostar U-100 Insulin] 100 unit/mL (3 mL) Insulin Pen 30 unit subcut HS Qty: 15 0RF insulin glargine [Lantus Solostar U-100 Insulin] 100 unit/mL (3 mL) Insulin Pen 30 unit subcut QAM Qty: 15 0RF Jardiance 10 mg Tablet 10 mg PO QAM Qty: 0 0RF capsaicin 0.1 % cream 1 applic topical TID Qty: 60 0RF Rx Instructions: apply to bottoms of feet 3 x per day, do not wash area for at least 30 min after application Continued tramadol 50 mg tablet 50 mg PO TID PRN Qty: 30 1RF clonidine HCl 0.1 MG tablet 0.2 mg PO BID pantoprazole [Protonix] 20 MG tablet,delayed release (DR/EC) 40 mg PO HS acetaminophen [Tylenol] 325 mg Tablet 650 mg PO TID amlodipine 2.5 mg Tablet 2.5 mg PO DAILY propranolol 40 mg Tablet 40 mg PO BID furosemide [Lasix] 20 mg Tablet 20 mg PO DAILY buprenorphine HCl 8 mg Tablet, Sublingual 8 mg SUBLINGUAL DAILY labetalol 100 mg tablet 100 mg PO DAILY Patient Comments: TAKE 1 TABLET BY MOUTH TWICE DAILY potassium chloride 10 mEq tablet extended release 10 meq PO DAILY Patient Comments: TAKE 1 TABLET BY MOUTH DAILY losartan 100 mg tablet 100 mg PO DAILY duloxetine 20 mg Capsule,Delayed Release(Dr/Ec) 20 mg PO DAILY Qty: 30 0RF Changed metformin 500 mg Tablet Extended Release 24 Hr 2,000 mg PO DAILY Qty: 30 0RF glipizide 5 mg Tablet 10 mg PO DAILY Qty: 30 0RF Discontinued buprenorphine-naloxone [Suboxone] 8-2 mg film 2 film sublingual ONCE Patient Comments: PLACE TWO FILMS UNDER THE TONGUE EVERY DAY Discharge Instructions Instructions: Nerve damage caused by diabetes, Metformin, Foot Care for Diabetics, Empagliflozin, Insulin Glargine Additional Instructions: You were admitted for control of your diabetes. You have chronic complications of your diabetes including severe peripheral diabetic neuropathy of your feet. You have been prescribed topical capsacin cream and oral pain medications including tramadol and pregabalin (LYrica) which is used specifically to control nerve pain. For your diabetes, your metformin was increased to 2000 mg per day and Jardiance (Empagliflozin) was added along w/ an adjustment of your insulin. You should check your blood sugars 3 to 4 times per day (morning, afternoon, evening and bedtime); goal is for fasting/morning glucose <120 and all other glucose levels under 200. If your glucose remains elevated then your provider should start you on bolus/immediate acting insulin such as Novolog (aspart) w/ each meal. You were found on your blood work to have mildly decreased blood count levels in all the three major cell lines i.e. red cells, white cells and platelets. You should be referred to a certified medical coding specialist and we recommend that your provider make an appointment w/ [facility] hematology and oncology to see a certified medical coding specialist. Stand Alone Forms: Nursing Discharge Form Referrals: HEMATOLOGY/ONC,[facility] [place]OTHER] - (refer to hematology for evaluation of pancytopenia) Activity:: Activity as Tolerated Equipment/Supplies:: No Equipment Needed Diet:: Carb Counting Discharge Orders Discharge Orders: Discharge Order (Routine); Ordered 10/10/23 Ordered By: Andrew Rosa DS: Summary Time Spent with Patient providing and/or coordinating discharge services: Greater than 30 minutes Status at Discharge Functional status at discharge: independent ambulation Overall status at discharge: patient is back to baseline Mental Status: mental status grossly normal Speech and Movement: speech and movement normal Mood: congruent mood Affect: normal affect Quality:SDOH Health Related Social Needs: No Data to Display Exam Narrative Exam Narrative: Patient seen lying in bed. he is very demanding of his benzodiazepines as he says he is having a panic attack. Yet he is not diaphoretic nor dyspneic nor tachycardic I agreed to medicate him prior to transport to halfway to ease his transfer but did not agree to prescribing any benzodiazepines upon discharge. I also told him that I would not prescribe any narcotics but would increase his Lyrica and add capsacin cream. Psych Mental Status: mental status grossly normal Speech and Movement: speech and movement normal Mood: congruent mood Affect: normal affect DS: Data Vitals/I&O Vitals and I&O: Vital Signs Temperature 36.4 C L 10/10/23 12:45 Temperature Source Tympanic 10/10/23 12:45 Pulse 67 10/10/23 12:45 Pulse Rhythm Regular 10/10/23 10:01 Pulse 63 10/08/23 03:16 Respiratory Rate 18 10/10/23 12:45 Respiratory Effort Normal, Non-Labored 10/10/23 10:01 Respiratory Depth Normal 10/10/23 10:01 Respiratory Pattern Normal 10/10/23 10:01 Blood Pressure 130/68 10/10/23 12:45 Blood Pressure Mean 122 10/08/23 03:16 Pulse Oximetry 91 L 10/10/23 12:45 Oxygen Delivery Method Room Air 10/10/23 12:45 Oxygen Flow Rate 0 10/10/23 12:45 Pain Level 5 10/10/23 10:37 Comment pt attempted to get out of bed. per his request to use restroom, he reported his neuropathy pain, got so bad that he could not get out of bed. Myself and gaurd assisted patient back to bed. pt refuses his offer for a nasal cannula saying his anxiety is very bad at this time. 10/10/23 05:31 Intake & Output 10/09/23 10/10/23 10/10/23 23:59 11:59 23:59 Intake Total 900 / 2400 600 / 1200 600 / 1200 Output Total 2000 / 2450 1200 / 1200 Balance -1100 / -50 -600 / 0 600 / 0 Intake: Oral 900 / 1400 600 / 1200 600 / 1200 Output: Urine 1999 / 2450 1200 / 1200 Other: Urine Color Yellow Yellow Pale Urine Appearance Clear Clear Clear Urine Odor None Normal Normal Comment commode over flowing with urine. x1 small hard formed bm in hat. brown. Stool Size Moderate Stool Characteristics Formed Hard Voiding Methods Toilet Toilet Toilet Data Completed and Pending Labs on day of discharge: Labs from last 24 hours 10/09/23 12:53 Ur Random Creatinine 82.02 U Random Total Protein 13.4 U [place] Prot/Creat Ratio 0.16 Ur Creatinine mg/dL 81.76 Ur Microalbumin mg/L 7.1 Microalb/Creat Ratio 8.7 PFSH All Active Problems DVT prophylaxis (Acute) Pancytopenia (Acute) Diabetic neuropathy, painful (Chronic) History of chronic pain (Acute) Right foot Diabetes mellitus with hyperglycemia (Acute) Medical History Opioid use disorder, moderate, in early remission, on maintenance therapy, dependence GERD (gastroesophageal reflux disease) Diabetes Hypertension Anxiety Surgical History Hx of foot surgery Right foot History of genitourinary surgery Family History Other Heart disease Social History Smoking/Tobacco Use Status: Current every day Smoking risk assessment performed?: Yes Alcohol Intake: never Drug use: Current Sobriety Substance use type: former substance user Housing: other Additional Social history: Pt currently residing at [facility] Time Spent with Patient Time Spent with Patient: 45-69 minutes Time was spent: preparing to see the patient(eg.review tests), ordering medications,tests, procedures, referring, communicating with other health managed care specialist, indepentently interpreting results, counseling the patient and care coordination
--- NOTE | 2023-10-10 14:40 | NUR.NOTE ---
Nursing Note: [facility] escorted by [facility]al guards
[2023-10-12 12:55] LABS: HCV RNA Qualitative Undetected (Undetected)
== END 2023-10-10 14:36 ==
LOC: ER 10-08 02:52 → MS 10-08 08:17
PROVIDERS: Family Medicine; Internal Medicine; Admitting Provider Family Medicine; Emergency Provider Emergency Medicine; Visit Provider Family Medicine
DX: E11.65 Type 2 diabetes mellitus with hyperglycemia (principal); E11.42 Type 2 diabetes mellitus with diabetic polyneuropathy; D61.818 Other pancytopenia; I10 Essential (primary) hypertension; K21.9 Gastro-esophageal reflux disease without esophagitis; F11.20 Opioid dependence, uncomplicated; Z79.899 Other long term (current) drug therapy; F41.8 Other specified anxiety disorders; Z79.84 Long term (current) use of oral hypoglycemic drugs; E66.9 Obesity, unspecified; Z68.35 Body mass index [BMI] 35.0-35.9, adult
CPT/HCPCS: 00123; 36415; 36416; 80048; 80053; 80307; 82805; 82947; 82962; 85027; 86706; 86803; 87340; 87389; 87522; 96361; 96365; 96366; 96372; 99285; 81003; 81015; 82043; 82565; 82570; 82607; 83735; 84156; 84443; 85025; 85610; 99223; 99233; 99239; J1815; J2250; J3475; J3490

== ENCOUNTER 2023-10-11 12:12 | Emergency (ER) | payer OTHER, SELFPAY ==
[2023-10-11] VITALS (28 sets, daily range): BP systolic 122–190; BP diastolic 51–84; PULSE 67–98; RESP 10–20; TEMP 36.7–37.3; O2SAT 91–92
--- NOTE | 2023-10-11 12:15 | DI.CT_ITS ---
Exam(s) CT HEAD WO EXAM: CT HEAD WO CLINICAL HISTORY: severe headache, confusion, vision changes. TECHNIQUE: Imaging Protocol: Axial computed tomography images with coronal and sagittal reformatted images were created and reviewed COMPARISON: No exams were available for comparison FINDINGS: Ventricles and Extra axial spaces: Normal in size and morphology for the patient's age. Hemorrhage: None. Cerebral parenchyma: Normal. Midline shift: None. Brainstem/Cerebellum: Normal. Calvarium: Normal. Visualized Paranasal sinuses/Mastoids: Clear. Soft Tissues: Unremarkable. IMPRESSION: No acute intracranial process. RADIATION DOSE DELIVERED: 901.09mGy.cm Total DLP DATA REPOSITORY: All CT scans at this facility are submitted to the National Radiology Data Registry (NRDR) Dose Index Registry (DIR) with the [employer] ([employer]). RADIATION OPTIMIZATION: All CT scans at this facility use at least one of these dose optimization te chniques: automated exposure control; mA and/or kV adjustment per patient size (includes targeted exa ms where dose is matched to clinical indication); or iterative reconstruction.
--- NOTE | 2023-10-11 12:30 | RT.EKG_ITS ---
APPROVED REPORT Exam: Resting ECG Reason for Exam: dizzy Patient Location: E HR:83 bpm ECG Measurements Heart Rate 83 AXIS UT 157 P 44 QRSd 100 QRS -17 QT 347 T 29 QTc 409 Conclusion Sinus rhythm...normal P axis, V-rate 60- 99 Inferior infarct, old...Q >35mS, II III aVF Normal sinus rhythm at a rate of 83 with interventricular conduction delay and a QRS of 100 ms. Left axis deviation no signs of LVH. Low voltage. T wave flattening in lead III. No prior for comparis on. No acute injury pattern.
--- NOTE | 2023-10-11 12:37 | W.ED.GENAD ---
Discharge Plan Discharge Details Chief Complaint: Nausea/Vomit/Diar Primary Care Provider: None,None ED Provider: Sabina Christiansen Home Meds and New Rx's Prescriptions: No Action tramadol 50 mg tablet 50 mg PO TID PRN Qty: 30 1RF clonidine HCl 0.1 MG tablet 0.2 mg PO BID pantoprazole [Protonix] 20 MG tablet,delayed release (DR/EC) 40 mg PO HS polyethylene glycol 3350 17 gram Powder In Packet 17 g PO DAILY PRN PRN (Reason: Constipation) Qty: 0 0RF dextrose [Glutose-15] 40 % Gel 30 g PO DIRECTED PRNQty: 300 0RF Rx Instructions: give 30 gm po prn hypoglycemia pregabalin 100 mg Capsule 100 mg PO TID Qty: 0 0RF insulin glargine [Lantus Solostar U-100 Insulin] 100 unit/mL (3 mL) Insulin Pen 30 unit subcut HS Qty: 15 0RF Patient Comments: pt refusing insulin glargine [Lantus Solostar U-100 Insulin] 100 unit/mL (3 mL) Insulin Pen 30 unit subcut QAM Qty: 15 0RF Patient Comments: pt refusing Jardiance 10 mg Tablet 10 mg PO QAM Qty: 0 0RF metformin 500 mg Tablet Extended Release 24 Hr 2,000 mg PO DAILY Qty: 30 0RF glipizide 5 mg Tablet 10 mg PO DAILY Qty: 30 0RF capsaicin 0.1 % cream 1 applic topical TID Qty: 60 0RF Rx Instructions: apply to bottoms of feet 3 x per day, do not wash area for at least 30 min after application acetaminophen [Tylenol] 325 mg Tablet 650 mg PO TID amlodipine 2.5 mg Tablet 2.5 mg PO DAILY propranolol 40 mg Tablet 40 mg PO BID furosemide [Lasix] 20 mg Tablet 20 mg PO DAILY buprenorphine HCl 8 mg Tablet, Sublingual 8 mg SUBLINGUAL DAILY labetalol 100 mg tablet 100 mg PO DAILY Patient Comments: TAKE 1 TABLET BY MOUTH TWICE DAILY potassium chloride 10 mEq tablet extended release 10 meq PO DAILY Patient Comments: TAKE 1 TABLET BY MOUTH DAILY losartan 100 mg tablet 100 mg PO DAILY duloxetine 20 mg Capsule,Delayed Release(Dr/Ec) 20 mg PO DAILY Qty: 30 0RF HPI General Date/Time Provider Initiated Documentation: 10/11/23 12:20. HPI Narrative: Nahum is a 53-year-old male with history of diabetes, diabetic neuropathy, pancytopenia, anxiety, and substance abuse on Suboxone who presents to the emergency department for evaluation of sudden onset headache with blurred vision, dizziness, and vomiting starting this morning. This is accompanied by a feeling of dry mouth. He does report that he had confusion this morning around 8:00. Denies head injury. He also reports abdominal pain, says he has not had a bowel movement in 6 days which is unusual for him. He is reporting lower abdominal discomfort. Denies fever/chills, chest pain, shortness of breath, blood in emesis, change in urine output/dysuria. Denies history of abdominal surgery. He was recently discharged from hospital for hyperglycemia. Related Data Home Medications Medication Instructions Recorded Confirmed clonidine HCl 0.1 mg tablet 0.2 mg PO BID 04/03/17 10/11/23 pantoprazole 20 mg tablet,delayed 40 mg PO HS 04/03/17 10/11/23 release (Protonix) acetaminophen 325 mg tablet 650 mg PO TID 11/01/18 10/11/23 (Tylenol) amlodipine 2.5 mg tablet 2.5 mg PO DAILY 11/01/18 10/11/23 furosemide 20 mg tablet (Lasix) 20 mg PO DAILY 11/01/18 10/11/23 propranolol 40 mg tablet 40 mg PO BID 11/01/18 10/11/23 buprenorphine HCl 8 mg sublingual 8 mg sublingual DAILY 11/04/18 10/11/23 tablet tramadol 50 mg tablet 50 mg PO TID PRN #30 tabs 11/06/18 10/11/23 labetalol 100 mg tablet 100 mg PO DAILY 10/06/23 10/11/23 losartan 100 mg tablet 100 mg PO DAILY 10/06/23 10/11/23 potassium chloride 10 mEq 10 meq PO DAILY 10/06/23 10/11/23 tablet,extended release duloxetine 20 mg capsule,delayed 20 mg PO DAILY #30 caps 10/07/23 10/11/23 release capsaicin 0.1 % topical cream 1 applic topical TID #60 grams 10/10/23 10/11/23 dextrose 40 % oral gel (Glutose-15) 30 g PO DIRECTED PRN #300 grams 10/10/23 10/11/23 empagliflozin 10 mg tablet 10 mg PO QAM #0 tabs 10/10/23 10/11/23 (Jardiance) glipizide 5 mg tablet 10 mg (2 x 5 mg) PO DAILY #30 tabs 10/10/23 10/11/23 insulin glargine 100 unit/mL (3 30 unit (0.3 mL) subcut HS #15 mL 10/10/23 10/11/23 mL) subcutaneous pen (Lantus Solostar U-100 Insulin) insulin glargine 100 unit/mL (3 30 unit (0.3 mL) subcut QAM #15 mL 10/10/23 10/11/23 mL) subcutaneous pen (Lantus Solostar U-100 Insulin) metformin 500 mg tablet,extended 2,000 mg (4 x 500 mg) PO DAILY #30 10/10/23 10/11/23 release 24 hr tabs polyethylene glycol 3350 17 gram 17 g PO DAILY PRN PRN Constipation 10/10/23 10/11/23 oral powder packet #0 ea pregabalin 100 mg capsule 100 mg PO TID #0 caps 10/10/23 10/11/23 Previous Rx's Medication Instructions Recorded tramadol 50 mg tablet 50 mg PO TID PRN #30 tabs 11/06/18 duloxetine 20 mg capsule,delayed 20 mg PO DAILY #30 caps 10/07/23 release capsaicin 0.1 % topical cream 1 applic topical TID #60 grams 10/10/23 dextrose 40 % oral gel (Glutose-15) 30 g PO DIRECTED PRN #300 grams 10/10/23 empagliflozin 10 mg tablet 10 mg PO QAM #0 tabs 10/10/23 (Jardiance) glipizide 5 mg tablet 10 mg (2 x 5 mg) PO DAILY #30 tabs 10/10/23 insulin glargine 100 unit/mL (3 30 unit (0.3 mL) subcut HS #15 mL 10/10/23 mL) subcutaneous pen (Lantus Solostar U-100 Insulin) insulin glargine 100 unit/mL (3 30 unit (0.3 mL) subcut QAM #15 mL 10/10/23 mL) subcutaneous pen (Lantus Solostar U-100 Insulin) metformin 500 mg tablet,extended 2,000 mg (4 x 500 mg) PO DAILY #30 10/10/23 release 24 hr tabs polyethylene glycol 3350 17 gram 17 g PO DAILY PRN PRN Constipation 10/10/23 oral powder packet #0 ea pregabalin 100 mg capsule 100 mg PO TID #0 caps 10/10/23 Allergies Allergy/AdvReac Type Severity Reaction Status Date / Time meloxicam [From Mobic] Allergy Severe Itching Unverified 10/11/23 12:28 bupropion [From Wellbutrin] AdvReac Mild Other (See Unverified 10/11/23 12:28 Comment) lisinopril AdvReac Mild cough Unverified 10/11/23 12:28 General Stated Complaint: Nausea/Vomit/Diar AMBER: 2 Review of Systems Narrative: see HPI Exam Const General: cooperative, healthy appearing and anxious HENMT Head: normal to inspection Ears: hearing grossly normal bilaterally General nose exam: external nose normal Mouth: oral mucosae normal Eyes Pupils: PERRL EOM: EOM intact bilaterally Resp Effort & Inspection: normal respiratory effort and able to speak in complete sentences Auscultation: clear to auscultation bilaterally Cardio Rate: regular rate Rhythm: regular rhythm GI Inspection: normal to inspection Palpation: soft, not firm, not rigid and tender (lower abdomen ) Auscultation: normal bowel sounds Neuro General: patient alert, patient awake, patient oriented x3, moves all extremities, no focal motor deficits and CN's II-XI intact bilaterally Cranial Nerves: PERRL, EOM intact bilaterally, no nystagmus and facial strength normal Cognition: normal cognition Speech: speech normal Motor: muscle tone normal throughout Course Vital Signs Vital signs: Vital Signs Temperature 37.3 C 10/11/23 12:19 Pulse 97 H 10/11/23 12:19 Respiratory Rate 20 10/11/23 12:19 Blood Pressure 190/81 H 10/11/23 12:19 Pulse Oximetry 91 L 10/11/23 12:19 Temperature 37.3 C 10/11/23 12:19 Temperature Source Oral 10/11/23 12:19 Pulse 97 H 10/11/23 12:19 Respiratory Rate 20 10/11/23 12:19 Blood Pressure 190/81 H 10/11/23 12:19 Blood Pressure Position Sitting 10/11/23 12:19 Pulse Oximetry 91 L 10/11/23 12:19 Oxygen Delivery Method Room Air 10/11/23 12:19 Oxygen Flow Rate 0 10/11/23 12:19 Pain Level 10 10/11/23 12:19 Medical Decision Making Nahum is a 53-year-old male with history of diabetes, diabetic neuropathy, pancytopenia, anxiety, and substance abuse on Suboxone who presents to the emergency department for evaluation of sudden onset headache with blurred vision, dizziness, and vomiting starting this morning. This is accompanied by a feeling of dry mouth. He does report that he had confusion this morning around 8:00. Denies head injury. He also reports abdominal pain, says he has not had a bowel movement in 6 days which is unusual for him. He is reporting lower abdominal discomfort. Denies fever/chills, chest pain, shortness of breath, blood in emesis, change in urine output/dysuria. Denies history of abdominal surgery. He was recently discharged from hospital for hyperglycemia. Physical exam remarkable for abdomen that is soft, tender to palpation to lower abdomen, nondistended, normoactive bowel sounds. Easy work of breathing, lung sounds clear bilaterally. Normal heart sounds. Moving all extremities normally. PERRL, EOMs intact. Cranial nerves II through XII intact as tested. Patient is alert and oriented x 3. DDx includes but is not limited to: DKA/HHS, Hyperglycemia, spontaneous intracranial hemorrhage, migraine, electrolyte imbalance, dehydration, fecal impaction, constipation, diverticulitis I independently interpreted the following tests: EKG shows NSR rate 83, no changes consistent with acute ischemia. T wave flattening in lead III, no previous available for comparison. CBC, CMP, and VBG reassuring. Glucose 484. Troponin negative. Urinalysis significant for glucose greater than 1000. While in the emergency department Nahum received IV fluids, morning dose of Lyrica which he had vomited up earlier, alprazolam for IV insertion, Reglan and Benadryl for headache/nausea. Patient claims he did not receive Suboxone this morning because he had vomited, however [facility] RN reports he received a dose sublinguals so dose was absorbed. Handoff report given to Kenia Arredondo, vazquez TYSON. Quality:SDOH Health Related Social Needs: No Data to Display PFSH All Active Problems (Updated 10/11/23 @ 00:05 by KRISTAL SCHULER) Pancytopenia (Acute) Diabetic neuropathy, painful (Chronic) History of chronic pain (Acute) Right foot Diabetes mellitus with hyperglycemia (Acute) Medical History Opioid use disorder, moderate, in early remission, on maintenance therapy, dependence GERD (gastroesophageal reflux disease) Diabetes Hypertension Anxiety Surgical History Hx of foot surgery Right foot History of genitourinary surgery Family History Other Heart disease Social History Smoking/Tobacco Use Status: Current every day Smoking risk assessment performed?: Yes Alcohol Intake: never Drug use: Current Sobriety Substance use type: former substance user Details: on buprenorphine 8mg Housing: other Additional Social history: Pt currently residing at [facility]
[2023-10-11 12:41] LABS: Bilirubin Negative (Negative); Blood Negative (Negative); Clarity Clear (Clear); Glucose >=1000 mg/dL (Negative); Ketones Negative (Negative); Leukocyte Esterase Negative (Negative); Nitrite Negative (Negative); Urobilinogen 0.2 mg/dL (Up to 0.2); pH 5.5 (5-8)
[2023-10-11] MEDS: ALPRAZolam 0.5 MG TAB 2 MG PO (12:46)
[2023-10-11 12:54] LABS: Bacteria Negative HPF (Negative); C & S Indicated? No; Casts Negative LPF (Negative); Crystals Negative HPF (Negative); Epithelial Cells Rare HPF (Negative); Mucus Negative (Negative); RBC Negative HPF (0-2); WBC Negative HPF (0-5)
--- NOTE | 2023-10-11 13:00 | DI.CT_ITS ---
Exam(s) CT ABDOMEN PELVIS W EXAM: CT ABDOMEN PELVIS W CLINICAL HISTORY: Lower abd pain; constipation TECHNIQUE: Imaging Protocol: Axial computed tomography images with coronal and sagittal reformatted images were created and reviewed. CONTRAST MATERIAL: Intravenous: Omnipaque 350 contrast volume:100 mL Oral: No COMPARISON: CT ABD PELVIS WITH CONTRAST from 06/16/2017 FINDINGS: ABDOMEN: Lung Bases: There is a calcified granuloma in the right lower lobe. Ground-glass infiltrate is seen in the right lower lobe. Liver: There is decreased attenuation of the liver consistent with fatty infiltration. No measurable mass. Portal, Superior Mesenteric, and Splenic Veins: Unremarkable. Gallbladder and Biliary Tract: No radiodense calculus or dilation. Pancreas: Normal density, no abnormal calcifications or inflammatory process. Spleen: Normal. Adrenals: No masses seen. Kidneys: Normal size, contour and axis. There is a nonobstructing 3 mm stone in the midpole of the ri ght kidney. No masses seen. Abdominal Aorta: Abdominal portion non-dilated. Atherosclerotic calcification is present. Bowel: In the mid to distal sigmoid colon there is a transition from a dilated loops proximally into a collapsed loop of the bowel distally. This may be normal peristalsis no definite mass is seen at t his area. But this can not be excluded. There is mild wall thickening seen in duodenal loops in the left upper quadrant. This may represent a enteritis. No evidence of appendicitis. Peritoneal Cavity: No ascites, collection or mesenteric inflammatory response. No free air. Lymph Nodes: Within normal limits. Bones: Within normal limits for the patient's age. Soft Tissues: Unremarkable. PELVIS: Bladder: Symmetric distention, no gross wall thickening. A question was raised on the V Rad report slaughter ggesting a tiny nodular density at the posterior inferior aspect of the urinary bladder. This may re present volume averaging through the prostate gland. Reproductive Organs: Unremarkable as visualized. Lymph Nodes: Within normal limits. Bones: Within normal limits for the patient's age. IMPRESSION: 1. Mild wall thickening in loops of the jejunum in the left upper quadrant which may represent enteri tis. 2. Artifact versus sigmoid colon lesion. Please correlate with any recent colonoscopy examination. Further evaluation can be obtained with a barium enema or colonoscopy if 1 has not been performed. 3. V Rad report raise a question of a nodule on the posterior inferior urinary bladder. This may ref lect volume averaging with the prostate gland. Follow-up as clinically appropriate. Bladder ultraso und may be obtained with an adequately distended urinary bladder. Cystoscopy can also be considered. 4. Small ground-glass infiltrate in the right lower lobe. This may represent small airways disease o r infiltrate. Please correlate clinically. RADIATION DOSE DELIVERED: 1,601.61mGy.cm Total DLP DATA REPOSITORY: All CT scans at this facility are submitted to the National Radiology Data Registry (NRDR) Dose Index Registry (DIR) with the [employer] ([employer]). RADIATION OPTIMIZATION: All CT scans at this facility use at least one of these dose optimization te chniques: automated exposure control; mA and/or kV adjustment per patient size (includes targeted exa ms where dose is matched to clinical indication); or iterative reconstruction.
[2023-10-11 13:15] LABS: BE (Venous) 4 mmol/L (-2-3); HCO3 (Venous) 29 mmol/L (23-28); O2 Sat (Venous) 83 %; TCO2 (Venous) 26 mmol/L (24-29); pCO2 (Venous) 50 mmHg (41-51); pH (Venous) 7.37 (7.31-7.41); pO2 (Venous) 49 mmHg
[2023-10-11 13:23] LABS: Abs Immature Grans 0.05 10^3/uL (0.0-0.06); Absolute Basophil Count 0.03 10^3/uL (0.0-0.2); Absolute Eosinophil Count 0.08 10^3/uL (0.0-0.7); Absolute Lymphocyte Count 1.24 10^3/uL (1.2-3.4); Absolute Monocyte Count 0.43 10^3/uL (0.1-0.8); Absolute Neutrophil Count 3.51 10^3/uL (1.2-6.7); Basophils % 0.6 %; Eosinophils % 1.5 %; HCT 37.8 % (40.0-50.0); HGB 13.2 g/dL (13.5-17.5); Immature Grans % 0.9 %; Lymphocytes % 23.2 %; MCH 33.8 pg (27.0-33.0); MCHC 34.9 % (32.0-36.0); MCV 97 fL (80-95); MPV 9.9 fL (8.0-11.0); Monocytes % 8.1 %; Neutrophils % 65.7 %; Platelet Count 111 10^3/uL (130-400); RBC 3.91 10^6/uL (4.36-5.78); RDW-SD 42.4 fL; WBC 5.34 10^3/uL (4.4-10.8)
[2023-10-11] MEDS: Normal Saline 1,000 ML 500 ML IV (13:27)
[2023-10-11] MEDS: Metoclopramide 10 MG/2 ML VIAL IVP (13:28)
[2023-10-11] MEDS: diphenhydrAMINE 50 MG/ML VIAL 25 MG IVP (13:28)
[2023-10-11] MEDS: Pregabalin 100 MG CAP PO (13:29)
[2023-10-11 13:45] LABS: ALT 75 U/L (16-63); AST 22 U/L (15-37); Albumin 3.8 g/dL (3.4-5.0); Alkaline Phosphatase 81 U/L (46-116); Anion Gap 9.5 mmol/L (3-11); BUN 19 mg/dL (7-18); Bilirubin, Total 0.47 mg/dL (0.2-1.0); CO2 28.5 mmol/L (21.0-32.0); CREATININE 1.3 mg/dL (0.70-1.30); Calcium 10.1 mg/dL (8.5-10.1); Chloride 98 mmol/L (98-107); Estimated GFR 66.51 (mL/min/1.73m2); Glucose 484 mg/dL (74-106); Potassium 4.9 mmol/L (3.5-5.1); Sodium 136 mmol/L (136-145); Total Protein 7.4 g/dL (6.4-8.2)
[2023-10-11 14:18] LABS: Troponin I < 50 ng/L (< or =60)
[2023-10-11] MEDS: Normal Saline Flush 10 ML SYR IVP (15:10)
[2023-10-11] MEDS: Normal Saline - Diluent 50 ML VIAL IJ (15:11)
[2023-10-11] MEDS: Omnipaque 350 MG/ML 100 ML BTL IJ (15:12)
[2023-10-11 15:24] LABS: Lab Add On Test DONE
[2023-10-11 15:41] LABS: *AMPHETAMINES SCREEN URINE Negative (Negative); *BARBITURATES SCREEN URINE Negative (Negative); *BENZODIAZEPINES SCREEN URINE Negative (Negative); Cannabinoids THC Negative (Negative); Cocaine Screen,Urine Negative (Negative); METHADONE URINE SCREEN Negative (Negative); OPIATES URINE SCREEN Negative (Negative); Tricyclic Antidepressants Negative (Negative)
--- NOTE | 2023-10-11 15:55 | DI.VRAD_ITS ---
PROCEDURE INFORMATION: Exam: CT Head Without Contrast Exam date and time: 10/11/2023 3:17 PM Age: 53 years old Clinical indication: Pain; Dizziness; Patient HX: Severe headache, confusion, vision changes TECHNIQUE: Imaging protocol: Computed tomography of the head without contrast. COMPARISON: SOFT TISSUE HEAD OR NECK US 03/02/2017 11:06 AM FINDINGS: Brain: Normal. No hemorrhage. Unremarkable white matter. No mass effect. Cerebral ventricles: No ventriculomegaly. Paranasal sinuses: Visualized sinuses are unremarkable. No fluid levels. Mastoid air cells: Visualized mastoid air cells are well aerated. Bones: Unremarkable. No acute fracture. Soft tissues: Unremarkable. IMPRESSION: No evidence for acute intracranial abnormality. Dictated and Authenticated by: Yamilex Connor MD. Ordering:EMILIE Muhammad MD
--- NOTE | 2023-10-11 16:25 | DI.VRAD_ITS ---
PROCEDURE INFORMATION: Exam: CT Abdomen And Pelvis With Contrast Exam date and time: 10/11/2023 3:21 PM Age: 53 years old Clinical indication: Abdominal pain; Localized; Patient HX: Lower abd pain; Constipation TECHNIQUE: Imaging protocol: Computed tomography of the abdomen and pelvis with contrast. COMPARISON: CT ABD PELVIS WITH CONTRAST 06/16/2017 10:49 PM FINDINGS: Liver: Normal. No mass. Gallbladder and biliary ducts: Normal. No calcified stones. No ductal dilation. Pancreas: Normal. No ductal dilation. Spleen: Normal. No splenomegaly. Adrenal glands: Normal. No mass. Kidneys and ureters: Normal. No hydronephrosis. Stomach and bowel: Constipated changes noted in the colon. No abnormal distension. There may be a mild transition zone at the sigmoid level series 9, images [id number]. There may be a soft tissue mass at this level versus artifact of spasm or fecal material. Appendix: No evidence of appendicitis. Intraperitoneal space: Unremarkable. No free air. No significant fluid collection. Vasculature: Moderate atherosclerotic change present in the vasculature. Lymph nodes: Unremarkable. No enlarged lymph nodes. Urinary bladder: There is a small posteroinferior bladder wall nodular density, 6 mm series 9, image 881. This could be volume averaging artifact from prostatic tissue or intrinsic bladder nodule. Reproductive: Unremarkable as visualized. Bones/joints: Unremarkable. No acute fracture. Soft tissues: Unremarkable. IMPRESSION: 1. Sigmoid transition noted, possible artifact versus underlying lesion. Follow-up recommended. 2. Follow-up possible bladder nodule. Dictated and Authenticated by: Yamilex Connor MD. Ordering:EMILIE Muhammad MD
== END 2023-10-11 16:15 | disposition home or self-care (01) ==
PROVIDERS: Nurse Practitioner Family; Emergency Provider Physician Assistant
DX: E11.65 Type 2 diabetes mellitus with hyperglycemia (principal); R51.9 Headache, unspecified; R42 Dizziness and giddiness; R11.10 Vomiting, unspecified; R10.9 Unspecified abdominal pain; R93.5 Abnormal findings on diagnostic imaging of other abdominal regions, including retroperitoneum
CPT/HCPCS: 36415; 36416; 80053; 80307; 82805; 82962; 93005; 96374; 96375; 99285; 70450; 74177; 81003; 81015; 84484; 85025; 93010; J0131; J1200; J2765; J3490

== ENCOUNTER 2023-10-14 15:38 | Emergency (ER) | payer OTHER, SELFPAY ==
[2023-10-14] VITALS (10 sets, daily range): BP systolic 141–172; BP diastolic 82–106; PULSE 82–101; RESP 14–22; O2SAT 90–92
--- NOTE | 2023-10-14 15:30 | DI.CT_ITS ---
Exam(s) CT HEAD WO EXAM: CT HEAD WO CLINICAL HISTORY: severe headache. TECHNIQUE: Imaging Protocol: Axial computed tomography images with coronal and sagittal reformatted images were created and reviewed COMPARISON: CT CT HEAD WO from 10/11/2023 FINDINGS: Ventricles and Extra axial spaces: Normal in size and morphology for the patient's age. Hemorrhage: None. Cerebral parenchyma: Normal. No mass effect. Midline shift: None. Brainstem/Cerebellum: Normal. Calvarium: Normal. Visualized Paranasal sinuses/Mastoids: Clear. Soft Tissues: Unremarkable. IMPRESSION: No acute intracranial process. RADIATION DOSE DELIVERED: 861.04mGy.cm Total DLP DATA REPOSITORY: All CT scans at this facility are submitted to the National Radiology Data Registry (NRDR) Dose Index Registry (DIR) with the [employer] (ACR). RADIATION OPTIMIZATION: All CT scans at this facility use at least one of these dose optimization te chniques: automated exposure control; mA and/or kV adjustment per patient size (includes targeted exa ms where dose is matched to clinical indication); or iterative reconstruction.
--- NOTE | 2023-10-14 15:30 | ED.PROG_ITS ---
Date of service: 10/14/23 Time of Service: 15:30 Medical Decision Making I spoke with Dr. 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 Patient reportedly has been refusing his insulin and his fingerstick blood glucoses. He has also declined behavioral health interventions. Dr. 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 Dr. Stroud is happy to touch base in real-time concerning this patient's care and would like to avoid him being treated with benzodiazepines and other controlled substances to facilitate care as this is a maladaptive strategy moving forward given that needles will continue to be a part of this patient's life. Dr. Stroud feels that patient would most likely benefit from cognitive behavioral therapy as an outpatient. In the ED if he is will he may benefit from consultation with a psychiatrist. Today he is reportedly coming in secondary to the security team who activated EMS. Dr. Stroud can be reached at: [phone]. Quality:SDOH Health Related Social Needs: No Data to Display Discharge Plan Discharge Details Primary Care Provider: None,None ED Provider: Jozef Rincon Home Meds and New Rx's Prescriptions: No Action tramadol 50 mg tablet 50 mg PO TID PRN Qty: 30 1RF clonidine HCl 0.1 MG tablet 0.2 mg PO BID pantoprazole [Protonix] 20 MG tablet,delayed release (DR/EC) 40 mg PO HS polyethylene glycol 3350 17 gram Powder In Packet 17 g PO DAILY PRN PRN (Reason: Constipation) Qty: 0 0RF dextrose [Glutose-15] 40 % Gel 30 g PO DIRECTED PRNQty: 300 0RF Rx Instructions: give 30 gm po prn hypoglycemia pregabalin 100 mg Capsule 100 mg PO TID Qty: 0 0RF insulin glargine [Lantus Solostar U-100 Insulin] 100 unit/mL (3 mL) Insulin Pen 30 unit subcut HS Qty: 15 0RF Patient Comments: pt refusing insulin glargine [Lantus Solostar U-100 Insulin] 100 unit/mL (3 mL) Insulin Pen 30 unit subcut QAM Qty: 15 0RF Patient Comments: pt refusing Jardiance 10 mg Tablet 10 mg PO QAM Qty: 0 0RF metformin 500 mg Tablet Extended Release 24 Hr 2,000 mg PO DAILY Qty: 30 0RF glipizide 5 mg Tablet 10 mg PO DAILY Qty: 30 0RF capsaicin 0.1 % cream 1 applic topical TID Qty: 60 0RF Rx Instructions: apply to bottoms of feet 3 x per day, do not wash area for at least 30 min after application acetaminophen [Tylenol] 325 mg Tablet 650 mg PO TID amlodipine 2.5 mg Tablet 2.5 mg PO DAILY propranolol 40 mg Tablet 40 mg PO BID furosemide [Lasix] 20 mg Tablet 20 mg PO DAILY buprenorphine HCl 8 mg Tablet, Sublingual 8 mg SUBLINGUAL DAILY labetalol 100 mg tablet 100 mg PO DAILY Patient Comments: TAKE 1 TABLET BY MOUTH TWICE DAILY potassium chloride 10 mEq tablet extended release 10 meq PO DAILY Patient Comments: TAKE 1 TABLET BY MOUTH DAILY losartan 100 mg tablet 100 mg PO DAILY duloxetine 20 mg Capsule,Delayed Release(Dr/Ec) 20 mg PO DAILY Qty: 30 0RF
--- NOTE | 2023-10-14 15:34 | ED.GENADUL_ITS ---
Discharge Plan Disposition [facility] Condition: Stable Discharge Details Clinical Impression: Noncompliance by refusing intervention or support, Headache, Hyperglycemia due to diabetes mellitus Primary Care Provider: None,None ED Provider: Jozef Rincon Home Meds and New Rx's Prescriptions: Continued tramadol 50 mg tablet 50 mg PO TID PRN Qty: 30 1RF clonidine HCl 0.1 MG tablet 0.2 mg PO BID pantoprazole [Protonix] 20 MG tablet,delayed release (DR/EC) 40 mg PO HS polyethylene glycol 3350 17 gram Powder In Packet 17 g PO DAILY PRN PRN (Reason: Constipation) Qty: 0 0RF dextrose [Glutose-15] 40 % Gel 30 g PO DIRECTED PRNQty: 300 0RF Rx Instructions: give 30 gm po prn hypoglycemia pregabalin 100 mg Capsule 100 mg PO TID Qty: 0 0RF insulin glargine [Lantus Solostar U-100 Insulin] 100 unit/mL (3 mL) Insulin Pen 30 unit subcut HS Qty: 15 0RF Patient Comments: pt refusing insulin glargine [Lantus Solostar U-100 Insulin] 100 unit/mL (3 mL) Insulin Pen 30 unit subcut QAM Qty: 15 0RF Patient Comments: pt refusing Jardiance 10 mg Tablet 10 mg PO QAM Qty: 0 0RF metformin 500 mg Tablet Extended Release 24 Hr 2,000 mg PO DAILY Qty: 30 0RF glipizide 5 mg Tablet 10 mg PO DAILY Qty: 30 0RF capsaicin 0.1 % cream 1 applic topical TID Qty: 60 0RF Rx Instructions: apply to bottoms of feet 3 x per day, do not wash area for at least 30 min after application acetaminophen [Tylenol] 325 mg Tablet 650 mg PO TID amlodipine 2.5 mg Tablet 2.5 mg PO DAILY propranolol 40 mg Tablet 40 mg PO BID furosemide [Lasix] 20 mg Tablet 20 mg PO DAILY buprenorphine HCl 8 mg Tablet, Sublingual 8 mg SUBLINGUAL DAILY labetalol 100 mg tablet 100 mg PO DAILY Patient Comments: TAKE 1 TABLET BY MOUTH TWICE DAILY potassium chloride 10 mEq tablet extended release 10 meq PO DAILY Patient Comments: TAKE 1 TABLET BY MOUTH DAILY losartan 100 mg tablet 100 mg PO DAILY duloxetine 20 mg Capsule,Delayed Release(Dr/Ec) 20 mg PO DAILY Qty: 30 0RF Discharge Instructions Instructions: Type 2 diabetes, Cognitive-Behavioral Therapy, Headache, Adult ED Additional Instructions: You were seen in the emergency department for your noncompliance with your regularly scheduled insulin and fasting blood sugars at [facility], you state this is due to needle phobia yet you have had A1c's drawn at this facility without issue before. You have a chronic condition that requires injections, you will have to get over your fear of needles. The correctional facility medical staff has offered you cognitive behavioral therapy which you have refused. You refused our care here and instead state that you need highly irregular medicines that are beyond the standard scope of practice for these interventions, in order to receive care that is standard and requires no pharmacological therapy to perform interventions. Your blood glucose is 360, through reverse A1c and your most recent A1c of 14 this is right around your 3-month average blood sugar, that is your blood sugar average down 24 hours a day for the past 3 months. You are likely at your baseline hyperglycemic state, you need to comply with your regularly scheduled insulin and fasting blood sugars at the correctional facility. For headache please take Tylenol and ibuprofen as needed-your head CT shows no evidence of intracranial hemorrhage or mass, your urine shows no evidence of UTI. Discharge Data Discharge Date/Time-TO BE ENTERED AT DEPARTURE: 10/14/23 17:10 HPI General Date/Time Provider Initiated Documentation: 10/14/23 15:40 . 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 Patient has been refusing FSBS's at senior care and refusing insulin. Quality described as burning urination, severe headache, and excessive thirst, no radiation to chest pain, shortness of breath, fever, abdominal pain, vomiting. Severity is described as severe. Palliating factors include nothing- refusing all treatments, even behavioral. Provoking factors include nothing specific. Patient not anticoagulated. Related Data Home Medications Medication Instructions Recorded Confirmed clonidine HCl 0.1 mg tablet 0.2 mg PO BID 04/03/17 10/11/23 pantoprazole 20 mg tablet,delayed 40 mg PO HS 04/03/17 10/11/23 release (Protonix) acetaminophen 325 mg tablet 650 mg PO TID 11/01/18 10/11/23 (Tylenol) amlodipine 2.5 mg tablet 2.5 mg PO DAILY 11/01/18 10/11/23 furosemide 20 mg tablet (Lasix) 20 mg PO DAILY 11/01/18 10/11/23 propranolol 40 mg tablet 40 mg PO BID 11/01/18 10/11/23 buprenorphine HCl 8 mg sublingual 8 mg sublingual DAILY 11/04/18 10/11/23 tablet tramadol 50 mg tablet 50 mg PO TID PRN #30 tabs 11/06/18 10/11/23 labetalol 100 mg tablet 100 mg PO DAILY 10/06/23 10/11/23 losartan 100 mg tablet 100 mg PO DAILY 10/06/23 10/11/23 potassium chloride 10 mEq 10 meq PO DAILY 10/06/23 10/11/23 tablet,extended release duloxetine 20 mg capsule,delayed 20 mg PO DAILY #30 caps 10/07/23 10/11/23 release capsaicin 0.1 % topical cream 1 applic topical TID #60 grams 10/10/23 10/11/23 dextrose 40 % oral gel (Glutose-15) 30 g PO DIRECTED PRN #300 grams 10/10/23 10/11/23 empagliflozin 10 mg tablet 10 mg PO QAM #0 tabs 10/10/23 10/11/23 (Jardiance) glipizide 5 mg tablet 10 mg (2 x 5 mg) PO DAILY #30 tabs 10/10/23 10/11/23 insulin glargine 100 unit/mL (3 30 unit (0.3 mL) subcut HS #15 mL 10/10/23 10/11/23 mL) subcutaneous pen (Lantus Solostar U-100 Insulin) insulin glargine 100 unit/mL (3 30 unit (0.3 mL) subcut QAM #15 mL 10/10/23 10/11/23 mL) subcutaneous pen (Lantus Solostar U-100 Insulin) metformin 500 mg tablet,extended 2,000 mg (4 x 500 mg) PO DAILY #30 10/10/23 10/11/23 release 24 hr tabs polyethylene glycol 3350 17 gram 17 g PO DAILY PRN PRN Constipation 10/10/23 10/11/23 oral powder packet #0 ea pregabalin 100 mg capsule 100 mg PO TID #0 caps 10/10/23 10/11/23 Previous Rx's Medication Instructions Recorded tramadol 50 mg tablet 50 mg PO TID PRN #30 tabs 11/06/18 duloxetine 20 mg capsule,delayed 20 mg PO DAILY #30 caps 10/07/23 release capsaicin 0.1 % topical cream 1 applic topical TID #60 grams 10/10/23 dextrose 40 % oral gel (Glutose-15) 30 g PO DIRECTED PRN #300 grams 10/10/23 empagliflozin 10 mg tablet 10 mg PO QAM #0 tabs 10/10/23 (Jardiance) glipizide 5 mg tablet 10 mg (2 x 5 mg) PO DAILY #30 tabs 10/10/23 insulin glargine 100 unit/mL (3 30 unit (0.3 mL) subcut HS #15 mL 10/10/23 mL) subcutaneous pen (Lantus Solostar U-100 Insulin) insulin glargine 100 unit/mL (3 30 unit (0.3 mL) subcut QAM #15 mL 10/10/23 mL) subcutaneous pen (Lantus Solostar U-100 Insulin) metformin 500 mg tablet,extended 2,000 mg (4 x 500 mg) PO DAILY #30 10/10/23 release 24 hr tabs polyethylene glycol 3350 17 gram 17 g PO DAILY PRN PRN Constipation 10/10/23 oral powder packet #0 ea pregabalin 100 mg capsule 100 mg PO TID #0 caps 10/10/23 Allergies Allergy/AdvReac Type Severity Reaction Status Date / Time meloxicam [From Mobic] Allergy Severe Itching Unverified 10/11/23 12:28 bupropion [From Wellbutrin] AdvReac Mild Other (See Unverified 10/11/23 12:28 Comment) lisinopril AdvReac Mild cough Unverified 10/11/23 12:28 General AMBER: 2 Review of Systems All systems reviewed & are unremarkable except as noted in HPI and below Exam Narrative Exam Narrative: GENERAL APPEARANCE: Well-nourished, non-toxic, awake and alert, atraumatic, no acute distress. SKIN: Warm, pink, dry, intact, without rashes/lesions/ulcerations. HEAD: Normocephalic, atraumatic, normal hair distribution for gender/age. EYES: Pupils PERRLA, EOMs intact without nystagmus, normal conjunctiva, no exudates on lids/lashes. ENT: Nares patent, no circumoral cyanosis, no facial swelling NECK: Supple, trachea midline, painless cervical ROM. LUNGS/CHEST: Lungs CTA bilaterally- no rhonchi/rales/wheezes diffusely, non- labored respirations, normal A/P diameter, symmetrical expansion, no chest wall deformity HEART (CV/PV): Regular rate and rhythm without murmur, no peripheral edema, no JVD. ABDOMEN: Soft, non-distended, no guarding, no tenderness. MSK: Normal ROM, no swelling/deformity to bilateral UEs or LEs, moving all extremities without weakness, no cyanosis, spine midline without tenderness, normal curvature. NEURO: Mental Status AAOx4 - alert to person, place, time, events No facial droop, no forehead involvement. Motor: No focal weakness - strength 5/5 in bilateral UEs and LEs, proximal and distal, symmetric. Sensory: sensation intact to light touch globally. Gait normal: patient ambulated without ataxia into ED room. PSYCH: dysthymic, uncooperative, unpleasant, appropriate speech Medical Decision Making This dictation utilizes [id number] dictation software and may contain unedited grammatical errors. 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 Patient has been refusing FSBS's at senior care and refusing insulin. Quality described as burning urination, severe headache, and excessive thirst, no radiation to chest pain, shortness of breath, fever, abdominal pain, vomiting. Severity is described as severe. Palliating factors include nothing- refusing all treatments, even behavioral. Provoking factors include nothing specific. Patients' medical history: t2DM, opioid use disorder. Family and social history: incarcerated. Pertinent exam findings / vital signs include vitals stable - HR 90s, resting comfortable, alert and oriented, no active vomiting, no respiratory distress. Observed 94% SpO2 at rest. Differential / pathologies of concern include hyperglycemia, DKA, headache, UTI. Diagnostic studies of: -CT Head wo Contrast, Urinalysis, FSBS. -no ICH on CT Head -no UTI on UA, glucose 500 -FSBS was 368, consistent as reverse glucose a1c to his baseline recently at [facility] of ~14.0%. Patient is likely at baseline and needs to take his routine insulin. Interventions of: -none- patient refused standard medical interventions. ED Course/Assessment/Plan: 53-year-old incarcerated male individual presents after refusing his routine [facility], security staff alerted EMS due to headache, he also endorses being thirsty and having burning with urination, CT head shows no intracranial hemorrhage or other abnormality, urinalysis shows no UTI. 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 He often requests benzos and ketamine by name and attempts to bargain with providers to receive any medical intervention. These medicines are highly out of the scope of normal expected routine management of diabetes and he is likely refusing his routine care at the [facility] deliberately in order to engage in bargaining at our facility. I informed him that he is refusing care, he has refused cognitive behavioral therapy at the present to attempt to address his needle phobia. He states that if they transfer him to [place] [facility] he will be compliant with insulin injections. His blood sugar through his reverse A1c is around baseline at his most A1c reading, he has no evidence of confusion or alteration from baseline and I did [facility] to [facility] with recommendation that he continue his regular insulin care at their medical facility. Patient seen by Dr. Smith as well, see his notes. Findings not consistent with diabetic ketoacidosis- patient has no abnormal breaths, no respiratory distress, no tachycardia at rest, alert and oriented. Disposition of Hyperglycemia due to Diabetes Mellitus, Headache, Noncompliance by Refusing Intervention or Support. Patient verbalized understanding of the plan and return to ED criteria and the [facility] ed in shared decision making. Medical Records Medical records reviewed: Yes I reviewed the patient's medical records. Imaging Data Radiologic Study: Attestation: I personally reviewed and interpreted this imaging study as follows: Imaging: CT Scan Radiologist's impression: EXAM: CT HEAD WO CLINICAL HISTORY: severe headache. TECHNIQUE: Imaging Protocol: Axial computed tomography images with coronal and sagittal reformatted images were created and reviewed COMPARISON: CT CT HEAD WO from 10/11/2023 FINDINGS: Ventricles and Extra axial spaces: Normal in size and morphology for the patient's age. Hemorrhage: None. Cerebral parenchyma: Normal. No mass effect. Midline shift: None. Brainstem/Cerebellum: Normal. Calvarium: Normal. Visualized Paranasal sinuses/Mastoids: Clear. Soft Tissues: Unremarkable. IMPRESSION: No acute intracranial process. Lab Data Lab results reviewed: Yes I reviewed the patient's lab results. Lab results narrative: FSBS 360 Quality:SDOH Health Related Social Needs: No Data to Display PFSH All Active Problems (Updated 10/14/23 @ 17:00 by MANAV Vu) Hyperglycemia due to diabetes mellitus (Acute) Headache (Acute) Noncompliance by refusing intervention or support (Acute) Nausea (Acute) Headache (Acute) Acute hyperglycemia (Acute) Diabetes (Chronic) Pancytopenia (Acute) Diabetic neuropathy, painful (Chronic) History of chronic pain (Acute) Right foot Diabetes mellitus with hyperglycemia (Acute) Medical History Opioid use disorder, moderate, in early remission, on maintenance therapy, dependence GERD (gastroesophageal reflux disease) Diabetes Hypertension Anxiety Surgical History Hx of foot surgery Right foot History of genitourinary surgery Family History Other Heart disease Social History Smoking/Tobacco Use Status: Current every day Smoking risk assessment performed?: Yes Alcohol Intake: never Drug use: Current Sobriety Substance use type: former substance user Details: on buprenorphine 8mg Housing: other Additional Social history: [facility]
[2023-10-14 15:57] LABS: Bilirubin Negative (Negative); Blood Negative (Negative); Clarity Clear (Clear); Glucose 500 mg/dL (Negative); Ketones Negative (Negative); Leukocyte Esterase Negative (Negative); Nitrite Negative (Negative); Specific Gravity 1.015 (1.005-1.025); pH 5.5 (5-8)
--- NOTE | 2023-10-14 16:53 | W.EDPROG ---
Date of service: 10/14/23 Time of Service: 16:53 Medical Decision Making I was present in this patient's room when he was informed of plan for discharge by his TYSON, please see separate note for details. In brief this is a diabetic 53-year-old male coming from [facility]. Please see my note from earlier today concerning conversation I had with the medical assistant float of the corrections department. Patient had sudden onset worst headache of his life for which he underwent a dry CT head which was negative for any acute intracranial pathology. Urinalysis did show ketonuria slightly improved compared to prior. His fingerstick blood glucose was elevated at 368 which correlates well with his known A1c of approximately 14%. He was offered diphenhydramine to obtain lab work which he declined. He requests anxiolysis with BZDs. Over the past week he has presented to the ED multiple times. He bargains for medications in exchange for lab work in a patter that is both highly atpyical and well outside the standard of practice. It is certainly possible that the patient could be in DKA however given his maladaptive pattern of requesting controlled substances in order to obtain lab work patient will be discharged from the emergency department. He is not tachycardic. He is not altered to suggest HHS. Quality:[facility] Health Related Social Needs: No Data to Display Discharge Plan Disposition [facility] Condition: Stable Discharge Details Clinical Impression: Noncompliance by refusing intervention or support, Headache, Hyperglycemia due to diabetes mellitus Primary Care Provider: None,None ED Provider: Jozef Rincon Home Meds and New Rx's Prescriptions: Continued tramadol 50 mg tablet 50 mg PO TID PRN Qty: 30 1RF clonidine HCl 0.1 MG tablet 0.2 mg PO BID pantoprazole [Protonix] 20 MG tablet,delayed release (DR/EC) 40 mg PO HS polyethylene glycol 3350 17 gram Powder In Packet 17 g PO DAILY PRN PRN (Reason: Constipation) Qty: 0 0RF dextrose [Glutose-15] 40 % Gel 30 g PO DIRECTED PRNQty: 300 0RF Rx Instructions: give 30 gm po prn hypoglycemia pregabalin 100 mg Capsule 100 mg PO TID Qty: 0 0RF insulin glargine [Lantus Solostar U-100 Insulin] 100 unit/mL (3 mL) Insulin Pen 30 unit subcut HS Qty: 15 0RF Patient Comments: pt refusing insulin glargine [Lantus Solostar U-100 Insulin] 100 unit/mL (3 mL) Insulin Pen 30 unit subcut QAM Qty: 15 0RF Patient Comments: pt refusing Jardiance 10 mg Tablet 10 mg PO QAM Qty: 0 0RF metformin 500 mg Tablet Extended Release 24 Hr 2,000 mg PO DAILY Qty: 30 0RF glipizide 5 mg Tablet 10 mg PO DAILY Qty: 30 0RF capsaicin 0.1 % cream 1 applic topical TID Qty: 60 0RF Rx Instructions: apply to bottoms of feet 3 x per day, do not wash area for at least 30 min after application acetaminophen [Tylenol] 325 mg Tablet 650 mg PO TID amlodipine 2.5 mg Tablet 2.5 mg PO DAILY propranolol 40 mg Tablet 40 mg PO BID furosemide [Lasix] 20 mg Tablet 20 mg PO DAILY buprenorphine HCl 8 mg Tablet, Sublingual 8 mg SUBLINGUAL DAILY labetalol 100 mg tablet 100 mg PO DAILY Patient Comments: TAKE 1 TABLET BY MOUTH TWICE DAILY potassium chloride 10 mEq tablet extended release 10 meq PO DAILY Patient Comments: TAKE 1 TABLET BY MOUTH DAILY losartan 100 mg tablet 100 mg PO DAILY duloxetine 20 mg Capsule,Delayed Release(Dr/Ec) 20 mg PO DAILY Qty: 30 0RF Discharge Instructions Instructions: Type 2 diabetes, Cognitive-Behavioral Therapy, Headache, Adult ED Additional Instructions: You were seen in the emergency department for your noncompliance with your regularly scheduled insulin and fasting blood sugars at [facility], you state this is due to needle phobia yet you have had A1c's drawn at this facility without issue before. You have a chronic condition that requires injections, you will have to get over your fear of needles. The [facility] medical staff has offered you cognitive behavioral therapy which you have refused. You refused our care here and instead state that you need highly irregular medicines that are beyond the standard scope of practice for these interventions, in order to receive care that is standard and requires no pharmacological therapy to perform interventions. Your blood glucose is 360, through reverse A1c and your most recent A1c of 14 this is right around your 3-month average blood sugar, that is your blood sugar average down 24 hours a day for the past 3 months. You are likely at your baseline hyperglycemic state, you need to comply with your regularly scheduled insulin and fasting blood sugars at the [facility] facility. For headache please take Tylenol and ibuprofen as needed-your head CT shows no evidence of intracranial hemorrhage or mass, your urine shows no evidence of UTI. Discharge Data Discharge Date/Time-TO BE ENTERED AT DEPARTURE: 10/14/23 17:10
== END 2023-10-14 17:10 ==
PROVIDERS: Emergency Provider Physician Assistant
DX: R51.9 Headache, unspecified (principal); R30.0 Dysuria; E11.65 Type 2 diabetes mellitus with hyperglycemia; Z79.4 Long term (current) use of insulin; Z91.148 Patient's other noncompliance with medication regimen for other reason
CPT/HCPCS: 00123; 82962; 99284; 70450; 81003